=== PATIENT | female | born 1960 | race Caucasian/White ===

== ENCOUNTER 2021-09-03 11:41 | Outpatient (REF) | payer BC, SELFPAY ==
[2021-09-03 12:29] LABS: Influenza A PCR NEGATIVE (Negative); Influenza B PCR NEGATIVE (Negative); Resp Syncy Virus RNA Qual PCR NEGATIVE (Negative); SARS COV2 PCR INHOUSE NEGATIVE (Negative)
== END 2021-09-03 11:42 | disposition home or self-care (01) ==
LOC: HO.LNP 11:41
PROVIDERS: Visit Provider Internal Medicine
DX: Z20.822 Contact with and (suspected) exposure to COVID-19 (principal); R43.9 Unspecified disturbances of smell and taste
CPT/HCPCS: 0241U

== ENCOUNTER 2021-09-06 13:58 | Outpatient (REF) | payer BC, SELFPAY ==
[2021-09-06 15:22] LABS: Influenza A PCR NEGATIVE (Negative); Influenza B PCR NEGATIVE (Negative); Resp Syncy Virus RNA Qual PCR NEGATIVE (Negative); SARS COV2 PCR INHOUSE POSITIVE (Negative)
== END 2021-09-06 13:59 | disposition home or self-care (01) ==
LOC: HO.LNP 13:58
PROVIDERS: Visit Provider Physician Assistant
DX: J06.9 Acute upper respiratory infection, unspecified (principal); Z20.822 Contact with and (suspected) exposure to COVID-19
CPT/HCPCS: 0241U

== ENCOUNTER 2023-11-13 09:47 | Outpatient (AMB) | payer BC, SELFPAY ==
--- NOTE | 2023-11-13 11:06 | MHC.OFFWIV ---
Intake Vital Signs 11/13/23 11:57 Height 4 ft 11 in Weight 147 lb BMI 29.7 BP 112/66 Blood Pressure Location Lt brachial Position Sitting Pulse 77 Pulse Source Pulse Oximeter Temp 97.8 F Temp Source Temporal Artery Scan Pulse Oximetry (%) 97 Oxygen Delivery Method Room Air Intake Visit Reasons: EP Eyes Itchy, pain Intake Note: pt is here today for itchy eyes and pain started yesterday Allergies Penicillins Allergy (Intermediate, Verified 11/13/23 11:59) Rash Do you need a note to return to daycare/school/sports/work: No HPI HPI Comments History of Present Illness Details presents to the walkin today for irritation to the left eye since yesterday Patient endorses itching to the left eye and Crestor mg work up this morning Denies pain to the eye, denies vision changes, headache. Patient denies pain with eye movement. Denies fever, cough, sinus congestion, sore throat or ear ache. Denies trauma to the eye or foreign body sensation. Review of Systems Const All systems reviewed & are unremarkable except as noted in HPI and below Physical Exam Vital Signs: Last Vital Signs Temp 97.8 F 11/13/23 11:57 Pulse 77 11/13/23 11:57 BP 112/66 11/13/23 11:57 Pulse Ox 97 11/13/23 11:57 Oxygen Delivery Method Room Air 11/13/23 11:57 BMI result Body Mass Index 29.7 General: awake, alert, oriented. Answers questions appropriately. Fully engaged in examination. Skin: warm, dry, intact HEENT: Normocephalic. Hearing intact. left eye: + mucoid discharge, conjunctival injection Cardiac: External chest normal in appearance. Respiratory: No cough, audible wheezing or stridor. Abdomen: without gross distension. MS: No obvious swelling or deformities. Neurological: Oriented to person, place, time and situation. Thought process intact. Psychiatric: Appropriate mood and affect. Good judgment and insight. Assessment & Plan Assessment & Plan (1) Conjunctivitis: Code(s): H10.9 - Unspecified conjunctivitis Plan Patient presents to the walkin for left eye irritation +mucoid discharge and conjunctival injection noted to left eye consistent with conjunctivitis. ABX drops, 1 drop to left eye four times daily. Avoid touching, rubbing the eyes. Do not use same area of facecloth to clean both eyes. Wash hands often. All questions and concerns were answered during the visit. Patient agrees with the plan. Follow up with pcp or return to walkin for any new or worsening symptoms. Medications: New polymyxin B sulf-trimethoprim 10,000 unit- 1 mg/mL while awake; do not exceed 6 doses in 24 hours 1 drp ophthalmic (eye) QID 7 days 10 mL 0RF Coding Level of Care Code Est Pt Level 3 (34308) Diagnoses Conjunctivitis H10.9
[2023-11-13 11:57] VITALS: BP 112/66; PULSE 77; TEMP 36.6; O2SAT 97; BMI 29.7
== END 2023-11-13 12:20 | disposition home or self-care (01) ==
PROVIDERS: Visit Provider Registered Nurse Emergency
DX: H10.9 Unspecified conjunctivitis (principal)
CPT/HCPCS: 99213

== ENCOUNTER 2025-02-12 10:26 | Outpatient (AMB) | payer BC, SELFPAY ==
--- NOTE | 2025-02-12 10:29 | A.OFFVIS_ITS ---
Vital Signs 02/12/25 10:31 Height 4 ft 11 in Weight 145 lb BMI 29.3 BP 119/61 Blood Pressure Location Rt brachial Position Sitting Respiration 16 Pulse 72 Pulse Source Pulse Oximeter Pulse Oximetry (%) 98 Oxygen Delivery Method Room Air Intake Visit Reasons: Fibromyalgia Education Dean Required: No Allergies Penicillins Allergy (Intermediate, Verified 02/12/25 10:32) Rash Medication List - Last Reconciled 02/12/25 by Madhavi Veliz LPN aspirin 81 mg PO DAILY atorvastatin 20 mg PO DAILY bupropion HCl XL 150 mg PO QAM buspirone 10 mg PO BID cyclobenzaprine 5 mg PO TID PRN diltiazem HCl CD 180 mg PO DAILY hydroxyzine HCl 25 mg PO TID isosorbide mononitrate ER 30 mg PO DAILY lisinopril 10 mg PO DAILY losartan 50 mg PO DAILY omeprazole 40 mg PO DAILY omeprazole 20 mg PO BID rosuvastatin 40 mg PO DAILY sertraline mg PO trazodone 100 mg PO BEDTIME valacyclovir 500 mg PO BID HPI Comments Details: The patient is a 64-year-old female presenting to the office for evaluation management of her chronic diffuse muscle and joint pain. Her debilitating pain, persisting for eight months, affects her entire body including the lower back, hips, shoulders, elbows, wrists, knees, ankles, and neck. She was told by PCP this is being caused by a flare of her fibromyalgia. Despite using Tylenol and ibuprofen, the patient reports no significant relief. PCP recently prescribed cyclobenzaprine the patient has not started this medication because it causes drowsiness. She states that she already suffers with some fatigue and can not afford to be more tired than she already is. Additionally, she relates this to stress from caregiving duties and subsequent business pressures. 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 Her medical history includes fibromyalgia, depression, and anxiety. The patient non-recalled past use of gabapentin and is currently on sertraline with improvements in depression symptoms. 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 She has not been evaluated by rheumatology. Her PCP did run Lyme test which was negative. - Onset: 8 months ago without inciting injury, fall, trauma - Timing: Constant pain present daily - Quality/Character: Severe, debilitating - Primary Location: Lower back, hips, shoulders, elbows, wrists, knees, ankles, neck - Exacerbating Factors: Physical activity, stress - Relieving Factors: None identified, OTC medications ineffective - Functional Interference: Inability to engage in daily activities such as gardening, homestaging business, and caregiving - Affect: Reports being in tears due to pain severity, impacting mood and psychological wellbeing - Analgesia: Currently taking Tylenol and ibuprofen with minimal relief; gabapentin previously used with effects unrecalled; willing to trial low-dose gabapentin again - Adverse Effects: Tiredness from cyclobenzaprine preventing daytime use - Activities of Daily Living: Pain severely limits activities like putting on socks and inhibits interests like cycling, kayaking, and gardening - Aberrant Drug Related Behaviors: No evidence of misuse or overuse reported Review of Systems Const Details: - Musculoskeletal: Reports debilitating diffuse pain - Neurological: Denies any specific neurological deficits - Psychological: Reports depression and anxiety; managed with sertraline, significant stress history - General: Reports tiredness and exhaustion Physical Exam Vital Signs: Last Vital Signs Pulse 72 02/12/25 10:31 Resp 16 02/12/25 10:31 BP 119/61 02/12/25 10:31 Pulse Ox 98 02/12/25 10:31 Oxygen Delivery Method Room Air 02/12/25 10:31 BMI result Body Mass Index 29.3 General: awake, alert, oriented. Answers questions appropriately. Fully engaged in examination. Skin: warm, dry, intact HEENT: Normocephalic. Hearing intact. Cardiac: External chest normal in appearance. Respiratory: No cough, audible wheezing or stridor. Abdomen: without gross distension. MS: No obvious swelling or deformities. Able to rise from sit to stand unassisted Ambulates with a steady gait. Neurological: Oriented to person, place, time and situation. Thought process intact. Psychiatric: Appropriate mood and affect. Good judgment and insight. Assessment & Plan Assessment & Plan (1) Polyarthralgia: Code(s): M25.50 - Pain in unspecified joint Category: Medical (2) Polymyalgia: Code(s): M35.3 - Polymyalgia rheumatica Category: Medical Plan The patient will commence a low-dose gabapentin regimen titrated for pain management while engaging in physical therapy to enhance mobility. Coordination with rheumatology will provide additional testing to assess for autoimmune etiologies. Pain progress and psychiatric support are essential components of care, leveraging mental health services and engagement in stress-reduction measures. I thoroughly discussed with the patient the potential benefits of a low-dose gabapentin regimen for pain management, emphasizing titration to minimize adverse effects. We explored the potential need for rheumatological evaluation to rule out alternative autoimmune causes, informed by inflammatory markers and autoimmune screening. The patient was educated on potential side effects and the importance of gradual increment if tolerated. I also advised on the merits of physical therapy to improve her functional status and mitigate pain. We discussed a holistic approach, integrating stress management with mental health support. Her consent was obtained for proceeding with the outlined plan, with reassurance of close monitoring and easy access for emergent concerns or unanticipated drug responses. Patient was informed and verbally consented to the use of an ambient scribe for clinic note documentation during this visit. Orders: Referrals Rheumatology Referral M25.50 - Pain in unspecified joint, M35.3 - Polymyalgia rheumatica Medications: New gabapentin 100 mg PO TID 90 caps 1RF Patient Instructions: - Start taking gabapentin as prescribed, beginning with low doses - Engage in physical therapy as scheduled to enhance movement and reduce pain - Monitor for any side effects from medications and report them - Consider stress-reduction techniques and support mental health - Follow up in four weeks or sooner if issues arise - Ensure access to the patient portal for efficient communication Coding Level of Care Code New Pt Level 4 (90970) Complex EM visit Add On G2211 Diagnoses Polyarthralgia M25.50 Polymyalgia M35.3
[2025-02-12 10:31] VITALS: BP 119/61; PULSE 72; RESP 16; O2SAT 98; BMI 29.3
--- OUTSIDE RECORDS SUMMARY | 2025-02-12 11:55 | XMS_ITS | Encounter Summary ---
Author Organization [facility] Address [address] [place] [address] Care Team Providers Care Mainspring Former Ar[employer] Name Role Phone Unknown Primary Care Provider [phone] Encounter Details Date Type Department Care Team (Late st Contact Info) Description 04/14/2020 Lab Requisition [address] [phone] Laurent Coffey PA-C [address] [place] [id number] Encounter for laboratory testing for COVID-19 virus Social History Tobacco Use Types Packs/Day Years Used Date Smoking Tobacco: Never Assessed Comments Unknown Sex and Gender Information Value Date Recorded Sex Assigned at Not on file Legal Sex Female 12:39 PM EDT Gender Identity Not on file Sexual Orientation Not on file documented as of this encounter Plan of Treatment Not on file documented as of this encounter Procedures Procedure Name Priority Date/Time Associated Diagnosis Comments (REPORT) SARS COV-2 RNA (COVID-19), QUAL Routine 04/14/2020 6:55 AM EDT Encounter for laboratory testing for COVID-19 virus [ICD-10-CM] documented in this encounter Results * SARS CoV-2 RNA (COVID-19), Qual (04/14/2020 6:55 AM EDT) SARS CoV 2 RNA, Qual NOT DETECTED NOT DETECTED 04/16/2020 12:00 AM EDT [facility] Comment: A Not Detected (negative) test result for this test means that SARS- CoV-2 RNA was not present in the specimen above the limit of detection. A negative result does not rule out the possibility of COVID-19 and should not be used as the sole basis for treatment or patient management decisions. ??If COVID-19 is still suspected, based on exposure history together with other clinical findings, re-testing should be considered in consultation with public health authorities. Laboratory test results should always be considered in the context of clinical observations and epidemiological data in making a final diagnosis and patient management decisions. Please review the Fact Sheets and FDA authorized labeling available for health care providers and patients using the following websites: https://www.OnePIN.Swank/home/Covid-19/HCP/NAAT/fact-sheet2 https://www.OnePIN.Swank/home/Covid-19/Patients/NAAT/ fact-sheet2 This test has been authorized by the FDA under an Emergency Use Authorization (EUA) for use by authorized laboratories. Due to the current public health emergency, [facility] is receiving a high volume of samples from a wide variety of swabs and media for COVID-19 testing. In order to serve patients during this public health crisis, samples from appropriate clinical sources are being tested. Negative test results derived from specimens received in non-commercially manufactured viral collection and transport media, or in media and sample collection kits not yet authorized by FDA for COVID-19 testing should be cautiously evaluated and the patient potentially subjected to extra precautions such as additional clinical monitoring, including collection of an additional specimen. Methodology: ??Nucleic Acid Amplification Test (NAAT) includes PCR or TMA ?? Additional information about COVID-19 can be found at the [facility] website: www.UTILICASE.Swank/Covid19. Microbiology Nasopharyngeal swab / Unknown 04/14/2020 6:55 AM EDT 04/14/2020 6:55 AM EDT [facility] - 04/16/2020 12:00 AM EDT Performing Organization Information: ?Site ID: [id number] ?Name: [employer] ?Address: [address] [place] [address],[place] [address] ?Director: BETTIE MYLES MD [facility] License number [id number] Laurent Coffey PA-C BODY FLUIDS AND STOOLS OR DERABLES Final Result Performing Organization Address City/State/[facility] Co de Phone Number [facility] documented in this encounter Visit Diagnoses Diagnosis Encounter for laboratory testing for COVID-19 virus documented in this encounter Care Teams [employer] Relationship Specialty Start Date End Date Unknown Unknow Provider Address PCP - General 02/05/20 documented as of this encounter
--- OUTSIDE RECORDS SUMMARY | 2025-02-12 11:55 | XMS_ITS | Encounter Summary ---
Author Organization [facility] Address [address] [place] [address] Care Team Providers Care Sap Basis Architect Name Role Phone Unknown Primary Care Provider [phone] Encounter Details Date Type Department Care Team (Late st Contact Info) Description 08/28/2020 Lab Requisition [address] [phone] Laurent Coffey PA-C [address] [place] [id number] Encounter for laboratory testing for COVID-19 virus [...] (REPORT) SARS COV-2 RNA (COVID-19), QUAL Routine 08/28/2020 2:04 PM EST Encounter for laboratory testing for COVID-19 virus [ICD-10-CM] documented in this encounter Results * SARS CoV-2 RNA (COVID-19), Qual (08/28/2020 2:04 PM EST) SARS CoV 2 RNA, Qual NOT DETECTED NOT DETECTED 2020 10:00 PM EST [facility] Comment: A Not Detected (negative) [...] providers and patients using the following websites: https://www.Skritter.Spriggle Kids/home/Covid-19/HCP/NAAT/fact-sheet2 https://www.Skritter.Spriggle Kids/home/Covid-19/Patients/NAAT/ fact-sheet2 This test has been authorized by the FDA under an Emergency Use Authorization (EUA) for use by authorized laboratories. Due to the current public health emergency, [facility] is receiving a high volume of samples [...] Methodology: ??Nucleic Acid Amplification Test (NAAT) includes RT-PCR or TMA ?? Additional information about COVID-19 can be found at the [facility] website: www.JuicyCanvas.Spriggle Kids/Covid19. Microbiology Nasopharyngeal swab / Unknown 08/28/2020 2:04 PM EST 08/28/2020 2:04 PM EST [facility] - 2020 10:00 PM EST Performing Organization Information: ?Site ID: [id number] ?Name: [employer] ?Address: [address] [place] [address],[place] [address] ?Director: BETTIE MYLES MD [facility] License number [id number] Laurent Coffey PA-C BODY FLUIDS AND STOOLS OR DERABLES Final Result Performing Organization Address City/State/[facility] Co de Phone Number [facility] documented in this encounter Visit Diagnoses Diagnosis Encounter for laboratory testing for COVID-19 virus documented in this encounter Care Teams Sap Basis Architect Relationship Specialty Start Date End Date Unknown Unknow Provider Address PCP - General 02/05/20 documented as of this encounter
--- OUTSIDE RECORDS SUMMARY | 2025-02-12 11:55 | XMS_ITS ---
Author Name [facility] Organization Unknown Encounters Encounter Type Encounter Reason Primary Diagnosis Location Date Ambulatory [facility] 01/10/2025 Ambulatory [facility] 12/31/2024 Ambulatory [facility] 12/31/2024 Ambulatory [facility] 12/31/2024 Ambulatory [facility] 12/31/2024 Ambulatory [facility] 12/31/2024 Ambulatory [facility] 11/28/2024 Care Team Organization Name Specialty Phone Email Start Date End [facility] te [facility] 01/03/2025 [facility] 08/09/2024 [facility] 02/25/2023 [facility]
--- OUTSIDE RECORDS SUMMARY | 2025-02-12 11:55 | XMS_ITS | Clinical Summary ---
Author Organization [facility] Address [address] [place] [address] Care Team Providers Care Fire Sprinkler Fitter Name Role Phone Unknown Primary Care Provider [phone] Social History Tobacco Use Types Packs/Day Years Used Date Smoking Tobacco: Never Assessed Comments Unknown Sex and Gender Information Value Date Recorded Sex Assigned at Not on file Legal Sex Female 12:39 PM EDT Gender Identity Not on file Sexual Orientation Not on file Plan of Treatment Health Maintenance Due Date Last Done Comments Hepatitis C Virus Screening 1961 HIV Screening 1974 DTaP/Tdap/Td Vaccines (1 - Tdap) 1980 Pneumococcal Vaccines 50+ (1 of 1 - PCV) 2011 Zoster (Shingles) Vaccine (1 of 2) 2011 COVID-19 Vaccine (2 - 2023-2 5 season) 2024 12/25/2020 RSV Vaccine 60 years and old er and Patients (1 - 1-dose 75+ series) 2036 Hepatitis B Vaccines Aged Out No long er eligible based on patient's age to complete this topic Care Teams Fire Sprinkler Fitter Relationship Specialty Start Date End Date Unknown Unknow Provider Address PCP - General 02/05/20
--- OUTSIDE RECORDS SUMMARY | 2025-02-12 11:55 | XMS_ITS | Data Portability ---
Author Organization [facility] Address [address] [address] [place] [address] Care Team Providers Care English Tutor Name Role Phone THOMAS HERNANDEZ Primary Care Provider YOUSUF FERNANDEZ Referring Provider Assessment Encounter Date Assessment Date Assessment LastModified by Organization Details LastModified Time 12/27/2018 12/27/2018 Jodi Palafox is a 58 year old woman with complaints of low back pain which radiates into her right lower extremity for the past eight months. She had physical therapy and chiropractic therapy and is doing a home exercise program with persistent pain. On exam, she has pain on flexion and a positive straight leg raising test on the right. Decreased pre patellar reflex on the right. FAIR Test is positive on the right. I recommend a repeat right piriformis muscle trigger point injection under fluoroscopic guidance. The risks and benefits of the procedure were discussed in detail. She wishes to proceed. An appointment has been booked for the same. She needs a sprinkler driver on the day of the procedure. [email or web address] Not available 01/05/2019 09:55:21 01/08/2019 01/08/2019 Jodi Palafox is a 58 year old woman with complaints of low back pain which radiates into her right lower extremity for the past eight months. She had physical therapy and chiropractic therapy and is doing a home exercise program with persistent pain. On exam, she has pain on flexion and a positive straight leg raising test on the right. Decreased pre patellar reflex on the right. FAIR Test is positive on the right. She is here for a right piriformis muscle trigger point injection under fluoroscopic guidance. The risks and benefits of the procedure were discussed in detail. She wishes to proceed. She needs to follow up in four weeks. [email or web address] Not available 01/09/2019 11:46:14 04/03/2019 04/03/2019 Jodi Palafox is a 58 year old woman with complaints of Right sided low back pain . She had physical therapy and chiropractic therapy and is doing a home exercise program with persistent pain. On exam, she has pain on flexion and a positive facet loading test on the right. I recommend a right lumbar facet joint injection under fluoroscopic guidance. The risks and benefits of the procedure were discussed in detail. She wishes to proceed. An appointment has been booked for the same. She needs a sprinkler driver on the day of the procedure. I have given her a prescription for ativan to be taken pre procedure. FISHER SEAL online checked. [email or web address] Not available 04/09/2019 08:57:51 04/23/2019 04/23/2019 Jodi Palafox is a 58 year old woman with complaints of Right sided low back pain . She had physical therapy and chiropractic therapy and is doing a home exercise program with persistent pain. On exam, she has pain on flexion and a positive facet loading test on the right. She is here for a right lumbar facet joint injection under fluoroscopic guidance. The risks and benefits of the procedure were discussed in detail. She wishes to proceed. She will follow up in four weeks. [email or web address] Not available 04/23/2019 09:45:00 05/30/2019 05/30/2019 Jodi Palafox is a 58 year old woman with complaints of Right sided low back pain . She had physical therapy and chiropractic therapy and is doing a home exercise program with persistent pain. On exam, she has pain on flexion and a positive facet loading test on the right. She is here for a follow up after a right lumbar facet joint injection under fluoroscopic guidance. She reports no pain benefit. I recommend a trial of celebrex 200 mg once daily . She will follow up in 4-6 weeks. She is also going to [facility] for 4 weeks. [email or web address] Not available 05/31/2019 08:43:53 Plan of Treatment Reminders Order Date Submit Date Provider Last Modified By Organization Details Last Modified Time Details Appointments None recorded. Lab None recorded. Referral None recorded. Procedures None recorded. Surgeries None recorded. Imaging None recorded. Medication Orders Celebrex 200 mg capsule 2018 019 INTERFACE [id number], [address] [place], [address], 08:44:55 Patient TargetsNo targets recorded. Patient Instructions Encounter Date Encounter Id Patient Instructions Last Modified By Organization Details Last Modified Time 12/27/2018 [id number] She was advised against bed rest lasting longer than four days and to continue activities as tolerated. [email or web address] Not available 01/05/2019 09:54:14 01/08/2019 [id number] She was advised against bed rest lasting longer than four days and to continue activities as tolerated. [email or web address] Not available 01/09/2019 11:46:15 04/03/2019 [id number] She was advised against bed rest lasting longer than four days and to continue activities as tolerated. [email or web address] Not available 04/09/2019 08:53:05 04/23/2019 [id number] She was advised against bed rest lasting longer than four days and to continue activities as tolerated. [email or web address] Not available 04/23/2019 09:44:34 05/30/2019 [id number] She was advised against bed rest lasting longer than four days and to continue activities as tolerated. [email or web address] Not available 05/31/2019 08:42:46 Reason for Referral None Reported. Problems Name Problem SNOMED Code Status Onset Date Resolution Date Notes Provider Name and Address Organization Details Recorded Time Lumbosacral radiculopathy [id number] Shabbir peña MD [address] [facility] , [address], [place], [address], [place] [facility] 13:39:54 Degeneration of lumbar intervertebral disc [id number] Shabbir peña MD [address] [facility] , [address], [place], [address], [place] [facility] 13:40:03 Lumbosacral spondylosis without myelopathy [id number] Shabbir peña MD [address] [facility] , [address], [place], [address], [place] [facility] 01/28/201 9 13:40:21 Spinal stenosis of lumbar region 64289767 Active Jamaal peña MD [address] [facility] , [address], [place], [address], [place] [facility] 9 13:40:32 Problem Notes None recorded. Procedures Surgical History Date Name Laterality Status Provider Name and Address Organization Details Recorded Time 04/23/20 19 Fluoroscopic Guided Lumbar Facet Steroid Injections of levels completed Jamaal Mcgrath MD [address] [facility] , [address], [place], [address], [place] [facility] 04/23/2019 09:43:47 01/09/20 19 Piriformis injection under fluroscopic guidance. completed Jamaal Mcgrath MD [address] [facility] , [address], [place], [address], [place] [facility] 01/09/2019 11:46:55 12/05/19 19 Piriformis injection under fluroscopic guidance. completed Jamaal Mcgrath MD [address] [facility] [facility] , [address], [place], [address], [place] [facility] 12/04/2018 13:49:28 Other completed Stephanie Garrido [place] [facility] 10/16/2018 15:38:48 Other completed Stephanie Garrido [place] [facility] 10/16/2018 15:39:16 Arthroscopic Surgery completed Stephanie Garrido [place] [facility] 04/03/2019 15:19:30 Imaging Results None recorded. Procedure Notes None recorded. Medical Equipment None Reported. Allergies Allergen ID Allergen Name Allergen Category Reaction Reaction Severity Criticality Documentation Date Start Date Code Code System Note Provider Name and Address Organization Details Recorded Time 19261 Product containin g penicilli n (product) medicatio n rash Not available Not available 10/16/2018 71264 8001 SNOMED Stephanie pierre [place] [facility] 9 15:19:41 84104 shellfish derived food,medi cation anaphylax is Not available Not available 10/16/2018 65094 UNK Stephanie pierre [place] [facility] 9 15:19:51 22284 honey bee venom medicatio n anaphylax is Not available Not available 10/16/2018 78293 7 RxNorm Stephanie pierre [place] [facility] 9 15:20:36 25093 latex environme nt,medica tion Not available Not available Not available 04/03/2019 82609 91 RxNorm [facility] 9 15:15:24 Medications Name Sig Start Date Stop Date Status Note LastModified by Organization Details LastModified Time celecoxib 200 mg capsule TAKE 1 CAPSULE BY MOUTH EVERY DAY active Not Available Not Available No t Available amoxicillin 500 mg capsule TAKE 4 CAPSULES BY MOUTH 1 HR PRIOR TO PROCEDURE 10/16 completed Not Available Not Available Not Available [place] Thyroid 60 mg tablet active Not Available Not Available No t Available atorvastati n 20 mg tablet TAKE 1 TABLET BY MOUTH EVERY DAY 05/30 completed Not Available Not Available Not Available atorvastati n 10 mg tablet TAKE 1 TABLET BY MOUTH EVERY DAY 10/16 completed Not Available Not Available Not Available nitroglycer in 0.3 mg sublingual tablet TAKE 1 TABLET SUBLINGUA LLY EVERY 5 MINUTES NEEDED FOR CHEST PAIN 12/27 completed Not Available Not Available Not Available nitroglycer in 0.2 mg/hr transdermal 24 hour patch APPLY 1 PATCH TO SKIN DIRECTED EVERY DAY. REMOVE AT NIGHT FOR 10-12 HOURS 12/27 completed Not Available Not Available Not Available phentermine 15 mg capsule TAKE ONE CAPSULE BY MOUTH EVERY DAY 10/16 completed Not Available Not Available Not Available omeprazole 40 mg capsule,del ayed release Take 1 capsule every day by oral route. active Not Available Not Available No t Available phentermine 30 mg capsule TAKE 1 CAPSULE BY MOUTH EVERY DAY 10/16 completed Not Available Not Available Not Available isosorbide dinitrate 30 mg tablet TAKE 0.5 TABLET BY ORAL ROUTE EVERY DAY 10/16 completed Not Available Not Available Not Available hydromorpho ne 2 mg tablet 04/03 completed Not Available Not Available Not Available diltiazem ER 120 mg capsule,24 hr,extended release TAKE 1 CAPSULE BY MOUTH EVERY DAY active Not Available Not Available No t Available diltiazem CD 120 mg capsule,ext ended release 24 hr TAKE 1 CAPSULE BY MOUTH EVERY DAY 10/16 completed Not Available Not Available Not Available Longs Adult Low Strength ASA 81 mg tablet,francia yed release Take 1 tablet every day by oral route. active Not Available Not Available No t Available metoprolol succinate ER 25 mg tablet,exte nded release 24 hr TAKE 1+1/2 TABLETS BY MOUTH EVERY DAY 11/15 completed Not Available Not Available Not Available lorazepam 1 mg tablet 05/30 completed Not Available Not Available Not Available naproxen 500 mg tablet TAKE 1 TABLET BY MOUTH TWICE A DAY FOR 7 DAYS WITH FOOD DO NOT TAKE WITH OTHER ANTI INFLAMMAT ORIES 10/16 completed Not Available Not Available Not Available Vitamin D3 25 mcg (1,000 unit) capsule Take by oral route. active Not Available Not Available No t Available bupropion HCl XL 150 mg 24 hr tablet, extended release TAKE 1 TABLET BY MOUTH EVERY DAY active Not Available Not Available No t Available Fish Oil active Not Available Not Avai lable Not Available EpiPen 2-Brooks 0.3 mg/0.3 mL injection, auto-inject or DIRECTED active Not Available Not Available No t Available Jublia 10 % topical solution with applicator APPLY ONCE DAILY TO NAILS 10/16 completed Not Available Not Available Not Available Vitals Date Recorded Body height Heart rate Oxygen saturation Oxygen saturation in Arterial blood by Pulse oximetry Systolic blood pressure Diastolic blood pressure Provider Name and Address Organization Details Last Updated DateTime 9 149.86 cm 71 /min 98 % 98 % 177 mm[Hg] 72 mm[Hg] Stephanie Garrido [facility] 14:43:35 Date Recorded Body height Body mass index (BMI) Body weight Heart rate Oxygen saturation Oxygen saturation in Arterial blood by Pulse oximetry Systolic blood pressure Diastolic blood pressure Provider Name and Address Organization Details Last Updated DateTime 9 149.86 cm 28.1 kg/m2 04522.3 4 g 78 /min 98 % 98 % 128 mm[Hg] 71 mm[Hg] Jamaal peña MD [address] [facility] [facility] , [address], [place], [address], [facility] 9 11:33:56 Date Recorded Body height Heart rate Oxygen saturation Oxygen saturation in Arterial blood by Pulse oximetry Systolic blood pressure Diastolic blood pressure Provider Name and Address Organization Details Last Updated DateTime 9 149.86 cm 69 /min 97 % 97 % 159 mm[Hg] 80 mm[Hg] Stephanie Garrido [place] [facility] 9 15:11:18 Date Recorded Body height Oxygen saturation Oxygen saturation in Arterial blood by Pulse oximetry Heart rate Systolic blood pressure Diastolic blood pressure Provider Name and Address Organization Details Last Updated DateTime 9 149.86 cm 99 % 99 % 77 /min 148 mm[Hg] 78 mm[Hg] Stephanie Garrido [place] [facility] 9 08:48:12 Date Recorded Body height Heart rate Oxygen saturation Oxygen saturation in Arterial blood by Pulse oximetry Systolic blood pressure Diastolic blood pressure Provider Name and Address Organization Details Last Updated DateTime 9 149.86 cm 78 /min 98 % 98 % 156 mm[Hg] 67 mm[Hg] Stephanie Garrido [place] [facility] 9 15:39:34 Social History Question Answer Notes LastModified by Neterion Details LastModified Time Tobacco Smoking Status Former Smoker Quit x 14 years Not Available [email or web address] 07/10/2020 03:16:10 Which Illicit Or Recreational Drugs Have You Used? No [id number] Information not available 07/10/2020 Education 4 Year College BS X 2 Information not available 10/16/2018 Live Alone Or With Others? With Others Partner [email or web address] Information not available 10/16/2018 Marital Status Single Informatio n not available 10/16/2018 What Was The Date Of Your Most Recent Tobacco Screening? 04/03/2019 [id number] Information not available 07/10/2020 How Many Years Have You Smoked Tobacco? 30 [id number] Information not available 07/10/2020 Sex: Unknown Functional Status Question Answer Note LastModified by Neterion Details LastModified Time What is your level of alcohol consumption? 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 Family History Relationship Description Onset Age of this Age Resolved Age Notes LastModified by Organization Details LastModified Time Father Heart disease Not available 2018 15:29:37 Mother Heart disease Not available 2018 15:29:37 Medical History Condition Response Coronary Artery Disease Y Fibromyalgia Y Migrane Y Hypertension Y High Cholesterol Y GERD/Reflux Y Gynecological HistoryNo gynecological history recorded. Obstetrics History GPAL:G 0 P 0 0 0 0 Past Encounters Encounter ID Performer Location Encounter Start Date Encounter Closed Date Diagnosis/Indication Diagnosis SNOMED-CT Code Diagnosis ICD10 Code Diagnosis Note [id number] Jamaal Mcgrath MD PA[facility] [address] [place] [address] 10/16/2018 14:53:03 10/22/2018 14:09:09 Spinal stenosis of lumbar region 43159755 M48.061 Lumbosacra l spondylosis without myelopathy 78430545 M47.817 Degenerati on of lumbar intervertebral disc 64896815 M51.36 Lumbosacra l radiculopathy 9577682 M54.17 [id number] Jamaal Mcgrath MD PA[facility] [address] [place] [address] 11/15/2018 15:24:16 11/19/2018 09:02:19 Spinal stenosis of lumbar region 23130615 M48.061 Lumbosacra l spondylosis without myelopathy 50962959 M47.817 Degenerati on of lumbar intervertebral disc 48003127 M51.36 Lumbosacra l radiculopathy 9340937 M54.17 [id number] Jamaal Mcgrath MD PA[facility]ICE [address] [place] [address] 12/04/2018 10:02:38 12/04/2018 13:53:49 Spinal stenosis of lumbar region 80357580 M48.061 Lumbosacra l spondylosis without myelopathy 30965996 M47.817 Degenerati on of lumbar intervertebral disc 73186695 M51.36 Lumbosacra l radiculopathy 0477462 M54.17 [id number] Jamaal Mcgrath MD PA[facility]ICE [address] [place] [address] 12/27/2018 14:02:27 01/05/2019 09:56:06 Spinal stenosis of lumbar region 47805011 M48.061 Lumbosacra l spondylosis without myelopathy 85371678 M47.817 Degenerati on of lumbar intervertebral disc 24419992 M51.36 Lumbosacra l radiculopathy 9705390 M54.17 [id number] Jamaal Mcgrath MD PAIN [facility]ICE [address] [place] [address] 01/08/2019 11:24:32 01/09/2019 12:03:29 Spinal stenosis of lumbar region 16130762 M48.061 Lumbosacra l spondylosis without myelopathy 90681254 M47.817 Degenerati on of lumbar intervertebral disc 95616175 M51.36 Lumbosacra l radiculopathy 1137915 M54.17 [id number] Jamaal Mcgrath MD PAIN OFFICE [address] [place] [address] 04/03/2019 14:55:56 04/09/2019 08:59:13 Lumbosacral spondylosis without myelopathy 49989011 M47.817 Degenerati on of lumbar intervertebral disc 32148216 M51.36 Lumbosacra l radiculopathy 6481912 M54.17 Spinal clary nosis of lumbar region 71822491 M48.061 [id number] Jamaal Mcgrath MD PAIN OFFICE [address] [place] [address] 04/23/2019 08:30:00 04/24/2019 13:45:34 Lumbosacral spondylosis without myelopathy 40419245 M47.817 Degenerati on of lumbar intervertebral disc 09003862 M51.36 Lumbosacra l radiculopathy 5662307 M54.17 Spinal clary nosis of lumbar region 20341600 M48.061 [id number] Jamaal Mcgrath MD PAIN [facility] [address] [place] [address] 05/30/2019 15:31:30 05/31/2019 08:45:39 Lumbosacral spondylosis without myelopathy 12620377 M47.817 Degenerati on of lumbar intervertebral disc 50591855 M51.36 Lumbosacra l radiculopathy 0371365 M54.17 Spinal clary nosis of lumbar region 50375795 M48.061 Health Concerns Section Related Observation LastModified by Organization Detai ls LastModified Time None Recorded Concern Status LastModified by Organization Details LastModified Time None Recorded Advance Directives Directive None Recorded Payers Encounter Date Sequence Insurance Name Policy Number Policy Anthony Covered Member ID Anthony Member ID Guarantor Name 12/27/2018 1 [place] [id number] Jodi Palafox [id number] Jodi Palafox 01/08/2019 1 [place] [id number] Jodi Palafox [id number] Jodi Palafox 04/03/2019 1 [place] [id number] Jodi Palafox [id number] Jodi Palafox 04/23/2019 1 [place] [id number] Jodi Palafox [id number] Jodi Palafox 05/30/2019 1 [place] [id number] Jodi Palafox [id number] Jodi Palafox Notes Date Note Type Note Provider Name and Address Organization Details Recorded Time 12/27/2018 text/html She is here for follow up after a right piriformis muscle steroid injection under fluoroscopic guidance. She is complaining of low back pain radiating into right lower extremity. She is also complaining of neck pain radiating into upper back. She has no radiating pain in her upper extremities. She has no history of bladder or bowel incontinence. Jamaal Mcgrath MD [email or web address] , [address], [place], [address], [place] [facility] 01/06/2019 17:03:41 01/08/2019 text/html She is here for right piriformis muscle steroid injection under fluoroscopic guidance Jamaal Mcgrath MD [email or web address] , [address], [place], [address], [place] [facility] 01/10/2019 10:38:19 04/03/2019 text/html She is here for a follow up. She reports good pain benefit after right piriformis injection under fluoroscopic guidance. She is complaining of right sided low back pain. She has no radiating pain in her lower extremities. She has no history of bladder or bowel incontinence. Jamaal Mcgrath MD [address] [facility] , [address], [place], [address], [facility] 04/11/2019 09:45:26 04/23/2019 text/html She is here for a right lumbar facet joint injection under fluoroscopic guidance Jamaal Mcgrath MD [address] [facility] , [address], [place], [address], [facility] - [facility] 04/24/2019 14:20:26 05/30/2019 text/html She is here for a follow up after right facet joint injections under fluoroscopic guidance. She reports no pain benefit. She continues to have low back pain, right is greater than left. She has no radiating pain. She has no history of bladder or bowel incontinence. She has seen a chiropractor and is seeking treatment with him. Jamaal Mcgrath MD [address] [facility] , [address], [place], [address], [facility] - [facility] 05/31/2019 08:57:38 OBGyn Episode No OBEpisode recorded.
--- OUTSIDE RECORDS SUMMARY | 2025-02-12 11:55 | XMS_ITS | Encounter Summary ---
Author Organization [facility] Address [address] [place] [address] Care Team Providers Care Double End Tenon Operator Name Role Phone Unknown Primary Care Provider +[id number] -0000 Encounter Details Date Type Department Care Team (Late st Contact Info) Description 07/24/2020 Lab Requisition [address] [address] Laurent Coffey PA-C [address] [place] [id number] Encounter for laboratory testing for COVID-19 virus [...] (REPORT) SARS COV-2 RNA (COVID-19), QUAL Routine 07/24/2020 1:14 PM EDT Encounter for laboratory testing for COVID-19 virus [ICD-10-CM] documented in this encounter Results * SARS CoV-2 RNA (COVID-19), Qual (07/24/2020 1:14 PM EDT) SARS CoV 2 RNA, Qual NOT DETECTED NOT DETECTED 07/27/2020 3:00 PM [facility] Comment: A Not Detected (negative) test result [...] providers and patients using the following websites: https://www.[employer]/home/Covid-19/HCP/NAAT/fact-sheet2 https://www.[employer]/home/Covid-19/Patients/NAAT/ fact-sheet2 This test has been authorized by the FDA under an Emergency Use Authorization (EUA) for use by authorized laboratories. Due to the current public health emergency, [facility] is receiving a high volume of samples [...] about COVID-19 can be found at the [facility] website: www.[employer]/Covid19. Microbiology Nasopharyngeal swab / Unknown 07/24/2020 1:14 PM EDT 07/24/2020 1:14 PM EDT [facility] - 07/27/2020 3:00 PM EST Performing Organization Information: ?Site ID: [id number] ?Name: [facility] ?Address: [address] [place] [address],[place] [address] ?Director: BETTIE MYLES MD [facility] License number [id number] Laurent Coffey PA-C BODY FLUIDS AND STOOLS OR DERABLES Final Result Performing Organization Address City/State/[facility] Co de Phone Number [facility] documented in this encounter Visit Diagnoses Diagnosis Encounter for laboratory testing for COVID-19 virus documented in this encounter Care Teams Double End Tenon Operator Relationship Specialty Start Date End Date Unknown Unknow Provider Address PCP - General 02/05/20 documented as of this encounter
--- OUTSIDE RECORDS SUMMARY | 2025-02-12 11:56 | XMS_ITS | Encounter Summary ---
Author Organization [facility] Address [address] [place] [address] Care Team Providers Care J2Ee Software Engineer Name Role Phone Unknown Primary Care Provider [phone] Encounter Details Date Type Department Care Team (Late st Contact Info) Description 06/02/2020 Lab Requisition [address] [phone] Laurent Coffey PA-C [address] [place] [address] Encounter for laboratory testing for COVID-19 virus [...] (REPORT) SARS COV-2 RNA (COVID-19), QUAL Routine 06/02/2020 7:56 AM EDT Encounter for laboratory testing for COVID-19 virus [ICD-10-CM] documented in this encounter Results * SARS CoV-2 RNA (COVID-19), Qual (06/02/2020 7:56 AM EDT) SARS CoV 2 RNA, Qual NOT DETECTED NOT DETECTED 06/03/2020 7:00 PM EDT [facility] Comment: A Not Detected (negative) test result for this test means that SARS-CoV-2 RNA was not present in the specimen above the limit of detection. A negative result does not rule out the possibility of COVID-19 and should not be used as the sole basis for treatment or patient management decisions. If COVID-19 is still suspected, based on exposure history together with other clinical findings, re-testing should be considered in consultation with public health authorities. Laboratory test results should always be considered in the context of clinical observations and epidemiological data in making a final diagnosis and patient management decisions. REFERENCE RANGE: ??NOT DETECTED This patient specimen was tested using an FDA EUA pooling method. Negative results from pooled testing should not be treated as definitive. ??If the patient's clinical signs and symptoms are inconsistent with a negative result or results are necessary for patient management, then the patient should be considered for individual testing. Specimens with low viral loads may not be detected in sample pools due to the decreased sensitivity of pooled testing. Please review the Fact Sheets and FDA authorized labeling available for health care providers and patients using the following websites: https://www.[employer].com/home/Covid-19/HCP/QuestLDTP/ fact-sheet https://www.[employer]/home/Covid-19/Patients/QuestLDTP/ fact-sheet.html This test has been authorized by the FDA under an Emergency Use Authorization (EUA) for use by authorized laboratories. Due to the current public health emergency, [employer] is receiving a high volume of samples [...] about COVID-19 can be found at the [employer] website: www.[employer]/Covid19. Microbiology Nasopharyngeal swab / Unknown 06/02/2020 7:56 AM EDT 06/02/2020 7:56 AM EDT Narrative [facility] - 06/03/2020 7:00 PM EDT Performing Organization Information: ?Site ID: [id number] ?Name: [employer] ?Address: [address] [place] [address],[place] [address] ?Director: BETTIE MYLES MD Performed at [facility] License number [id number] Laurent Coffey PA-C BODY FLUIDS AND STOOLS OR DERABLES Final Result [facility] documented in this encounter Visit Diagnoses Diagnosis Encounter for laboratory testing for COVID-19 virus documented in this encounter Care Teams J2Ee Software Engineer Relationship Specialty Start Date End Date Unknown Unknow Provider Address PCP - General 02/05/20 documented as of this encounter
--- OUTSIDE RECORDS SUMMARY | 2025-02-12 11:56 | XMS_ITS | Encounter Summary ---
Author Organization [facility] Address [address] [place] [address] Care Team Providers Care Motors And Controls Tester Name Role Phone Unknown Primary Care Provider [phone] Encounter Details Date Type Department Care Team (Late st Contact Info) Description 07/31/2020 Lab Requisition [facility] Testing [address] [address] Laurent Coffey PA-C [address] [place] [address] Encounter for laboratory testing for COVID-19 virus [...] (REPORT) SARS COV-2 RNA (COVID-19), QUAL Routine 07/31/2020 1:12 PM EST Encounter for laboratory testing for COVID-19 virus [ICD-10-CM] documented in this encounter Results * SARS CoV-2 RNA (COVID-19), Qual (07/31/2020 1:12 PM EST) SARS CoV 2 RNA, Qual NOT DETECTED NOT DETECTED 08/03/2020 9:00 PM EST [facility] Comment: [...] providers and patients using the following websites: https://www.[employer]ee[employer]/home/Covid-19/HCP/QuestLDT/ fact-sheet.html https://www.[employer]/home/Covid-19/Patients/QuestLDT/ fact-sheet.html ?? This test has been authorized by the FDA under an Emergency Use Authorization (EUA) for use by authorized laboratories. Due to the current public health emergency, [employer] is receiving a high volume of samples [...] about COVID-19 can be found at the [employer] website: www.[employer]/Covid19. Microbiology Nasopharyngeal swab / Unknown 07/31/2020 1:12 PM EST 07/31/2020 1:12 PM EST [facility] - 08/03/2020 9:00 PM EST Performing Organization Information: ?Site ID: [id number] ?Name: [facility] ?Address: [address] [place] [address],[place] [address] ?Director: BETTIE MYLES MD [facility] at [facility] License number [id number] Laurent Coffey PA-C BODY FLUIDS AND STOOLS OR DERABLES Final Result [facility] documented in this encounter Visit Diagnoses Diagnosis Encounter for laboratory testing for COVID-19 virus documented in this encounter Care Teams Motors And Controls Tester Relationship Specialty Start Date End Date Unknown Unknow Provider Address PCP - General 02/05/20 documented as of this encounter
--- OUTSIDE RECORDS SUMMARY | 2025-02-12 11:56 | XMS_ITS | Encounter Summary ---
Author Organization [facility] Address [address] [place] [address] Care Team Providers Care Nursing Unit Manager Name Role Phone Unknown Primary Care Provider [phone] Encounter Details Date Type Department Care Team (Late st Contact Info) Description 06/30/2020 Lab Requisition [address] [address] Laurent Coffey PA-C [address] [place] [address] Encounter for laboratory testing for COVID-19 virus [...] (REPORT) SARS COV-2 RNA (COVID-19), QUAL Routine 06/30/2020 7:01 AM EDT Encounter for laboratory testing for COVID-19 virus [ICD-10-CM] documented in this encounter Results * SARS CoV-2 RNA (COVID-19), Qual (06/30/2020 7:01 AM EDT) SARS CoV 2 RNA, Qual NOT DETECTED NOT DETECTED 07/01/2020 5:00 PM EDT [facility] Comment: A Not Detected (negative) test result [...] providers and patients using the following websites: https://www.[employer]ungle.com/home/Covid-19/HCP/QuestLDTP/ fact-sheet https://www.[employer]/home/Covid-19/Patients/QuestLDTP/ fact-sheet.html This test has been authorized by the FDA under an Emergency Use Authorization (EUA) for use by authorized laboratories. Due to the current public health emergency, [employer] is receiving a high volume of samples [...] about COVID-19 can be found at the [employer] website: www.[employer]/Covid19. Microbiology Nasopharyngeal swab / Unknown 06/30/2020 7:01 AM EDT 06/30/2020 7:01 AM EDT Narrative [facility] - 07/01/2020 5:00 PM EDT Performing Organization Information: ?Site ID: [id number] ?Name: [employer] ?Address: [address] [place] [address],[place] [address] ?Director: BETTIE MYLES MD [facility]formed at [facility] License number [id number] Laurent Coffey PA-C BODY FLUIDS AND STOOLS OR DERABLES Final Result [facility] documented in this encounter Visit Diagnoses Diagnosis Encounter for laboratory testing for COVID-19 virus documented in this encounter Care Teams Nursing Unit Manager Relationship Specialty Start Date End Date Unknown Unknow Provider Address PCP - General 02/05/20 documented as of this encounter
== END 2025-02-12 11:06 | disposition home or self-care (01) ==
LOC: HO.PMC 10:26
PROVIDERS: PCP Nurse Practitioner Family; Referring Provider Nurse Practitioner Family; Visit Provider Registered Nurse Emergency
DX: M25.50 Pain in unspecified joint (principal); M35.3 Polymyalgia rheumatica
CPT/HCPCS: 99204

== ENCOUNTER → 2025-02-12 10:26 | Outpatient (BNVA) | payer BC, SELFPAY | PROVIDERS: PCP Nurse Practitioner Family; Referring Provider Nurse Practitioner Family; Visit Provider Registered Nurse Emergency ==

== ENCOUNTER 2025-09-07 05:04 | Emergency (ER) | payer BC, SELFPAY ==
--- NOTE | ~2025-09-07 | XR_ITS ---
CLINICAL HISTORY: Pain 4 view left knee Comparison: None provided Findings: Bones intact. No dislocations. No significant loss of joint space, osteophytes, or erosions. No joint effusion. No radiopaque foreign body. IMPRESSION: 1. No acute findings. This document has been electronically signed by: Navneet Van MD on 09/07/2025 06:38:36
--- NOTE | ~2025-09-07 | CT_ITS ---
CLINICAL HISTORY: abd pain, hx of colitis and colectomy, r o sbo CT abdomen and pelvis with contrast Comparison: None provided Findings: No consolidation or effusion in the included lung bases. The liver, gallbladder, spleen, pancreas, bilateral adrenal glands and bilateral kidneys without acute abnormality or abnormal enhancement. The stomach and bowel loops are nondistended. There are no focal colonic lesions or pneumatosis. Mild thickening of the wall of the sigmoid colon. No pericolonic inflammation. There is no mesenteric inflammation. Appendix is surgically absent. No free fluid, collections or free air. there no aortic dissection or aneurysm. Bladder is normal. There are no adnexal lesions. There no acute soft tissue or skeletal abnormality in the abdomen or pelvis. There are no skeletal lesions. IMPRESSION: Mild thickening of the wall of the sigmoid colon, likely from underdistention, less likely mild colitis. There is no associated mesenteric inflammation. No signs of bowel obstruction, abscess or perforation. This document has been electronically signed by: Navneet Van MD on 09/07/2025 08:28:54
--- NOTE | ~2025-09-07 | CT_ITS ---
CLINICAL HISTORY: syncope, fall, head injury CT head without contrast Comparison: None provided Findings: No intra-axial mass, midline shift, hydrocephalus, or acute hemorrhage. No significant atrophy-like change or white matter disease. There is no sinus or mastoid fluid. The orbits are unremarkable. No skull fracture. IMPRESSION: 1. No acute intracranial findings. This document has been electronically signed by: Navneet Van MD on 09/07/2025 08:30:29
--- NOTE | 2025-09-07 05:17 | ECG_ITS ---
Test Reason : SYNCOPE Blood Pressure : */* mmHG Vent. Rate : 55 BPM Atrial Rate : 55 BPM P-R Int : 186 ms QRS Dur : 78 ms QT Int : 482 ms P-R-T Axes : 54 64 149 degrees QTcB Int : 461 ms Sinus bradycardia Septal infarct , age undetermined Abnormal ECG No previous ECGs available Referred By: Generic ED Physician Electronically Signed By: OLGA HURTADO MD
[2025-09-07 05:20] VITALS: BP 100/73; BP 110/36; PULSE 55; PULSE 57; RESP 16; TEMP 36.4; O2SAT 96; BMI 29.8
--- OUTSIDE RECORDS SUMMARY | 2025-09-07 05:37 | XMS_ITS | Encounter Summary ---
Author Organization [facility] Address [address] [facility] [address] [place] [address] Phone Care Team Providers Care Head Tennis Coach Name Role Phone Chio Hill CNP Primary Care Provider [phone] Veronica Evertet RN Unavailable Candice Martinez ADJUNCT TRAINER Primary Care Provider Candice Martinez CNP Primary Care Provider Candice Martinez ADJUNCT TRAINER Primary Care Provider [phone] Encounter Details Date Type Department Care Team (Late st Contact Info) Description 12/24/2020 Ancillary Orders [facility] [address] [place] [address] Chio Hill, ADJUNCT TRAINER [address] [facility], 2nd [place] [address] [email or web address] Breast screening Social History Tobacco Use Types Packs/Day Years Used Date Smoking Tobacco: Former Cigarettes Q uit: 07/30/2001 Smokeless Tobacco: Never Comments:started age 17 1 PP D Alcohol Use Standard Drinks/Week Comments Not Currently 0 (1 standard drink = 0.6 oz pur e alcohol) sober 18 years Comments No Sex and Gender Information Value Date Recorded Sex Assigned at Female 11/21/2019 7:20 AM EST Legal Sex Female 9:41 AM EDT Gender Identity Female 11/21/2019 7:20 AM EST Sexual Orientation Lesbian or Pittman 11/21/2019 7: 20 AM EST Occupation Industry Job Start Date Job End Date medical records Not on file Not on file Not on file documented as of this encounter Plan of Treatment Not on file documented as of this encounter Results * BI MAMMOGRAM SCREENING WITH TOMOSYNTHESIS WITH CAD (BILATERAL) (02/08/2021 4:05 PM EDT) Anatomical Region Laterality Modality Breast Left, Breast Right, Breast Bilateral Bila teral Mammography 02/08/2021 4:57 PM EDT Impressions 02/08/2021 5:03 PM EDT No mammographic signs of malignancy. Annual screening is recommended. BI-RADS CATEGORY: 1 - Negative. DENSITY: The breast tissue is extremely dense, which lowers the sensitivity of mammography. Narrative 02/08/2021 5:03 PM EDT Bilateral mammography is performed in conjunction with computed aided detection. 3-D tomography along with 2-D C view imaging was also performed. Comparison made to previous dated as far back as 02/16/2016 and as recent as 05/08/2019. No suspicious masses, areas of architectural distortion or suspicious microcalcifications. Procedure Note Dawit Chapa MD - 02/08/2021 Bilateral mammography is performed in conjunction with computed aideddetection. 3-D tomography along with 2-D C view imaging was alsoperformed. Comparison made to previous dated as far back as 02/16/2016 andas recent as 05/08/2019. No suspicious masses, areas of architectural distortion or suspiciousmicrocalcifications. IMPRESSION: No mammographic signs of malignancy. Annual screening is recommended. BI-RADS CATEGORY: 1 - Negative. DENSITY: The breast tissue is extremely dense, which lowers thesensitivity of mammography. Chio Hill ADJUNCT TRAINER IMG MG EXAMS Final Resu lt documented in this encounter Visit Diagnoses Diagnosis Breast screening Breast screening, unspecified Breast screening Breast screening, unspecified documented in this encounter Additional Health Concerns Assessment Noted Time PHQ-2 Depression Total Score: 0 09/24/20 20 8:18 AM EST documented as of this encounter Care Teams Head Tennis Coach Relationship Specialty Start Date End Date Chio HillDICKSON cox [address] [facility], [address]nd [place] [address] PCP - General Family Medicine 08/27/19 07/31/23 Candice Martinez CNP [address] [facility] [address] [place] [address] PCP - General Nurse Practitioner 08/01/23 09/05/23 Candice Martinez CNP [address] [facility] 7 [place] [address] PCP - General Nurse Practitioner 09/06/23 09/06/23 Candice Martinez CNP [address] [place] [address] 7 [place] [address] PCP - General Nurse Practitioner 09/07/23 Veronica Everett, RN [address] [place], [place] [id number] PHCM Spinning Frame CleanerPump Machine Operator 02/23/23 03/21/23 documented as of this encounter Additional Source Comments The information contained in this document represents components of the legal health record. It is not the complete legal health record.[facility]
--- OUTSIDE RECORDS SUMMARY | 2025-09-07 05:37 | XMS_ITS | Encounter Summary ---
Author Organization [facility] Address Critical access hospital [employer] [facility] [address] [place] [address] Phone Care Team Providers Care Hydraulic Chair Assembler Name Role Phone Candice Martinez DICKSON Primary Care Provider Reason for Visit * Reason Comments Medication Refill Encounter Details Date Type Department Care Team (Late st Contact Info) Description 08/29/2025 Refill [facility] Medicine [address] [place] [address] Cesar Petersen PA-C, LASHONDA [address] [place] [address] [email or web address] Medication Refill Social History Tobacco Use Types Packs/Day Years Used Date Smoking Tobacco: Former Cigarettes 1 20 1 09/29/1980 - 07/30/2001 Smokeless Tobacco: Never Comments:started age 17 1 PP D Alcohol Use Standard Drinks/Week Comments Not Currently 0 (1 standard drink = 0.6 oz pur e alcohol) sober 22 years(2000) Education Answer Date Recorded Are you interested in more education? Not on juan e 01/20/2023 Are you concerned about learning? Not on file 01/20/2023 No 01/20/2023 No 01/20/2023 Digital Access Answer Date Recorded No 02/14/2023 No 02/14/2023 Reliable internet access at home? Not on file 02/14/2023 Device with a working camera? Not on file Intimate Partner Violence Answer Date R ecorded Are you denied basic needs s uch as food, clothing, or medical care? No 09/07/2023 In the past 12 months have y ou been in a relationship with a person who hurts, threatens, or tries to control you? No 09/07/2023 Are you denied basic needs s uch as food, clothing, or medical care? No 09/07/2023 In the past 12 months have y ou been in a relationship with a person who hurts, threatens, or tries to control you? No 09/07/2023 Comments No Sex and Gender Information Value [...] on file documented as of this encounter Progress Notes * Laura Sheridan MA - 08/29/2025 12:14 PM EST Rx Care Gap Status - Instructions for Clinical Staff (prescriber discretion applies): > Mismatch review guide > No future appt: Please schedule if appropriate. Visit Info Last visit: 01/09/2025 Candice Martinez CNP - Family Medicine [facility] > Requested f/u: Not specified Upcoming visit: None ACTIONS TAKEN BY Laura Sheridan MA MAC - Criteria met. Skeletal Muscle Relaxant Rx Protocol - cyclobenzaprine HCl Criteria met; renew for up to 12 months. Visit in the past 14 months: Yes documented in this encounter Plan of Treatment Not on file documented as of this encounter Visit Diagnoses Diagnosis Fibromyalgia Unspecified myalgia and myositis documented in this encounter Additional Health Concerns Assessment Noted Time PHQ-9 Depression Total Score: 0 11/14/19 24 1:31 PM EST PHQ-2 Depression Total Score: 0 11/14/19 24 1:31 PM EST documented as of this encounter Care Teams Hydraulic Chair Assembler Relationship Specialty Start Date End Date Dior MartinezDICKSON jerry [address] [place] [address], [address] [place] [address] [email or web address] PCP - General Nurse Practitioner 09/07/23 documented as of this encounter Additional Source Comments The information contained in this document represents components of the legal health record. It is not the complete legal health record.[facility]
--- OUTSIDE RECORDS SUMMARY | 2025-09-07 05:37 | XMS_ITS | Encounter Summary ---
Author Organization [facility] Address [address] [place] [address] Phone Care Team Providers Care Net Mobile Developer Name Role Phone Chio Hill Olga [facility] Primary Care Provider [phone] Veronica Everett RN Unavailable [phone] Candice Martinez [facility] Primary Care Provider Candice Martinez [facility] Primary Care Provider Candice Martinez [facility] Primary Care Provider Encounter Details Date Type Department Care Team (Late st Contact Info) Description 10/13/2021 Procedure Pass [facility] [address] [place] [address] Social History Tobacco Use Types Packs/Day Years [...] EST Sexual Orientation Lesbian or Pittman 11/21/2019 7 :20 AM EST Occupation Industry Job Start Date Job End Date medical records Not on file Not on file Not on file documented as of this encounter Plan of Treatment Not on file documented as of this encounter Visit Diagnoses Not on filedocumented in this encounter Additional Health Concerns Assessment Noted Time PHQ-2 Depression Total Score: 0 10/13/19 22 4:05 PM EST documented as of this encounter Care Teams Net Mobile Developer Relationship Specialty Start Date End Date Chio HillDICKSON [address] [facility], 2nd [place] [address] PCP - General Family Medicine 08/27/19 07/31/23 Candice Martinez CNP [address] [facility] 7 [place] [address] PCP - General Nurse Practitioner 08/01/23 09/05/23 Candice Martinez CNP [address] [facility] 7 [place] [address] PCP - General Nurse Practitioner 09/06/23 09/06/23 Candice Martinez CNP [address] [facility] [address] [place] [address] PCP - General Nurse Practitioner 09/07/23 Veronica Everett, RN [address] [place] [address] PHCM Leather ScraperPhp Architect 02/23/23 03/21/23 documented as of this encounter Additional Source Comments The information contained in this document represents components of the legal health record. It is not the complete legal health record.[facility]
--- OUTSIDE RECORDS SUMMARY | 2025-09-07 05:37 | XMS_ITS | Encounter Summary ---
Author Organization [facility] Address [facility] [employer] [facility] [address] [place] [address] Phone Care Team Providers Care Food Science Professor Name Role Phone Candice Martinez DICKSON Primary Care Provider Encounter Details Date Type Department Care Team (Late st Contact Info) Description 09/26/2023 Procedure Pass [facility], [address] [place] [address] Social History Tobacco Use Types Packs/Day Years [...] Assessment Noted Time PHQ-9 Depression Total Score: 11 023 9:04 AM EST PHQ-2 Depression Total Score: 4 09/22/20 23 9:04 AM EST documented as of this encounter Care Teams Food Science Professor Relationship Specialty Start Date End Date Candice Martinez CNP [address] [place] [address], [address] [place] [address] [email or web address] PCP - General Nurse Practitioner 09/07/23 documented as of this encounter Additional Source Comments The information contained in this document represents components of the legal health record. It is not the complete legal health record.[facility]
--- OUTSIDE RECORDS SUMMARY | 2025-09-07 05:37 | XMS_ITS | Encounter Summary ---
Author Organization [facility] Address [facility] [employer] [facility] [address] [place] [address] Phone Care Team Providers Care First Aid Trainer Name Role Phone Candice Martinez DICKSON Primary Care Provider Encounter Details Date Type Department Care Team (Late st Contact Info) Description 09/07/2023 Procedure Pass [facility] - [address] [place] [address] Social History Tobacco Use Types Packs/Day Years [...] Assessment Noted Time PHQ-9 Depression Total Score: 13 023 9:02 AM EST PHQ-2 Depression Total Score: 4 09/15/20 23 9:02 AM EST documented as of this encounter Care Teams First Aid Trainer Relationship Specialty Start Date End Date Candice Martinez CNP [address] [place] [address], [address] [place] [address] [email or web address] PCP - General Nurse Practitioner 09/07/23 documented as of this encounter Additional Source Comments The information contained in this document represents components of the legal health record. It is not the complete legal health record.[facility]
--- OUTSIDE RECORDS SUMMARY | 2025-09-07 05:37 | XMS_ITS | Encounter Summary ---
Author Organization [facility] Address [address] [place] [address] Phone Care Team Providers Care Biodiesel Process Control Technician Name Role Phone Chio Hill Olga [facility] Primary Care Provider [phone]- [phone] MiamiCandice walsh [facility] Primary Care Provider Juan Candice [facility] Primary Care Provider Candice Martinez [facility] Primary Care Provider Encounter Details Date Type Department Care Team (Latest Contact Info) Description 07/19/2023 Transcribe Orders [facility] Phleb Charlette 10 [facility] 2nd [place] [address] Milagros Zayas NP 10 [place] [address] Dysphagia, pharyngoesophageal phase (Primary Dx); Change in bowel habits; Nausea Social History Tobacco Use Types Packs/Day Years Used Date Smoking Tobacco: Former Cigarettes 1 20 1 09/29/1980 - 07/30/2001 Smokeless Tobacco: Never Comments:started age 17 1 PP D Alcohol Use Standard Drinks/Week Comments Not Currently 0 (1 standard drink = 0.6 oz pur e alcohol) sober 18 years Education Answer Date Recorded Are you interested in more education? Not on juan e 01/20/2023 Are you concerned about learning? Not on file 01/20/2023 No 01/20/2023 No 01/20/2023 Digital Access Answer Date Recorded No 02/14/2023 No 02/14/2023 Reliable internet access at home? Not on file 02/14/2023 Device with a working camera? Not on file Comments No Sex and Gender Information Value [...] documented as of this encounter Results * (ABNORMAL) Iron and iron binding capacity (07/19/2023 10:40 AM EDT) IRON 39 30 - 160 ug/dL [facility] IRON BINDING CAPACITY 391 228 - 428 ug/dL [facility] TRANSFERRIN SATURAT. 10(L) 15 - 50 % [facility] Blood 07/19/2023 10:4 0 AM EDT 07/19/2023 10:50 AM EDT Milagros Zayas NP LAB BLOOD BKR ORDERABLES Final Result Performing Organization Address City/[facility]/ZIP Co de Phone Number [address] [address] * (ABNORMAL) C-Reactive Protein (07/19/2023 10:40 AM EDT) C REACTIVE PROTEIN 4.8(H) 0.0 - 4.0 mg/L [facility] Blood 07/19/2023 10:4 0 AM EDT 07/19/2023 10:50 AM EDT Milagros Zayas NP LAB BLOOD BKR ORDERABLES Final Result Performing Organization Address City/[facility]/ZIP Co de Phone Number [address] [address] * (ABNORMAL) Comprehensive metabolic panel (07/19/2023 10:40 AM EDT) SODIUM 139 133 - 146 mmol/L [facility] POTASSIUM 5.1 3.3 - 5.1 mmol/L [facility] CHLORIDE 102 96 - 108 mmol/L [facility] CO2 27 21 - 35 mmol/L [facility] BUN 16 6 - 19 mg/dL [facility] CREATININE 0.90 0.5 - 1.5 mg/dL [facility] GLUCOSE 109(H) 70 - 99 mg/dL [facility] ALBUMIN 4.8 3.9 - 4.8 g/dL [facility] TOTAL PROTEIN 7.3 6.5 - 8.0 g/dL [facility] CALCIUM 9.9 8.4 - 10.3 mg/dL [facility] ALKALINE PHOSPHATASE 133(H) 39 - 117 U/L [facility] TOTAL BILIRUBIN <0.2 0.0 - 1.2 mg/dL [facility] AST 24 0 - 37 U/L [facility] ALT 25 0 - 40 U/L [facility] GLOBULIN 2.5 1 - 4.8 g/dL [facility] EGFR 73 >59 mL/min/1.7 3m2 [facility] Comment:Estimated glomerular filtration rate calculated using the CKD-EPI refit equation. ANION GAP 15 10 - 20 mmol/L [facility] Blood 07/19/2023 10:4 0 AM EDT 07/19/2023 10:50 AM EDT Milagros Zayas NP LAB BLOOD BKR ORDERABLES Final Result [facility] [address] [place], [place] [id number] * (ABNORMAL) CBC (07/19/2023 10:40 AM EDT) WBC 8.84 4.00 - 11.00 K/uL [facility] RBC 4.40 3.72 - 5.30 M/uL [facility] HGB 12.0 11.4 - 15.9 g/dL [facility] HCT 38.3 34.2 - 46.8 % [facility] PLT 390 140 - 430 K/uL [facility] MCV 87.0 78.0 - 97.0 fL [facility] MCH 27.3 25.0 - 33.0 pg [facility] MCHC 31.3(L) 32.0 - 36.0 g/dL [facility] RDW 14.0 11.0 - 16.0 % [facility] MPV 10.9 8.4 - 12.8 fl [facility] Blood 07/19/2023 10:4 0 AM EDT 07/19/2023 10:50 AM EDT us Milagros Zayas SLUBBER HAND LAB BLOOD BKR ORDERABLES Final Result Performing Organization Address City/State/[facility] Co de Phone Number [facility] [address] [place] [address] documented in this encounter Visit Diagnoses Diagnosis Dysphagia, pharyngoesophageal phase- Primary Change in bowel habits Other symptoms involving digestive system Nausea Nausea alone documented in this encounter Additional Health Concerns Assessment Noted Time PHQ-9 Depression Total Score: 24 023 1:08 PM EDT PHQ-2 Depression Total Score: 6 05/31/20 23 1:08 PM EDT documented as of this encounter Care Teams Biodiesel Process Control Technician Relationship Specialty Start Date End Date Chio Hill CNP 15 [facility], 2nd [place] [address] [email or web address] PCP - General Family Medicine 08/27/19 07/31/23 Candice Martinez CNP 234 [facility], [facility] 7 [place] [address] [email or web address] PCP - General Nurse Practitioner 08/01/23 09/05/23 Candice Martinez CNP 234 [facility], [facility] 7 [place] [address] [email or web address] PCP - General Nurse Practitioner 09/06/23 09/06/23 Candice Martinez CNP [address] [place] [address] [address] [place] [address] [email or web address] PCP - General Nurse Practitioner 09/07/23 documented as of this encounter Additional Source Comments The information contained in this document represents components of the legal health record. It is not the complete legal health record.[facility]
--- OUTSIDE RECORDS SUMMARY | 2025-09-07 05:37 | XMS_ITS ---
Author Name [facility] Organization Unknown Encounters Encounter Type Encounter Reason Primary Diagnosis Location Date Ambulatory [facility] 05/27/2025 Ambulatory [facility] 05/14/2025 Ambulatory [facility] 01/10/2025 Ambulatory [facility] 12/31/2024 Ambulatory [facility] 12/31/2024 Ambulatory [facility] 12/31/2024 Ambulatory [facility] 12/31/2024 Ambulatory [facility] 12/31/2024 Ambulatory [facility] 11/28/2024 Care Team Organization Name Specialty Phone Email Start Date End Da te [facility] 09/06 [facility] 01/03/2025 [facility] the Legal Support Specialist ([facility]) 08/09/2024 [facility] 02/25/2023 [facility]
--- OUTSIDE RECORDS SUMMARY | 2025-09-07 05:37 | XMS_ITS | Encounter Summary ---
Author Organization [facility] Address [address] [place] [address] Phone Care Team Providers Care Hand Candy Molder Name Role Phone Chio Hill Olga [facility] Primary Care Provider [phone]- [phone] Veronica Everett RN Unavailable [phone] Candice Martinez [facility] Primary Care Provider Candice Martinez [facility] Primary Care Provider Candice Martinez [facility] Primary Care Provider Encounter Details Date Type Department Care Team (Late st Contact Info) Description 07/04/2022 Procedure Pass [facility] Endoscopy Admitting Dept Virtual Department [address] [place] [address] Social History Tobacco Use Types Packs/Day Years [...] documented as of this encounter Care Teams Hand Candy Molder Relationship Specialty Start Date End Date SergioChioDICKSON cox 15 [facility], 2nd [place] [address] PCP - General Family Medicine 08/27/19 07/31/23 Candice Martinez CNP [address] [place] [address] PCP - General Nurse Practitioner 08/01/23 09/05/23 Candice Martinez CNP [address] [place] [address] PCP - General Nurse Practitioner 09/06/23 09/06/23 Candice Martinez CNP [address] [place] [address] PCP - General Nurse Practitioner 09/07/23 Veronica Everett, RN [address] [place] [address] PHCM Budget And Policy AnalystBending Roll Hand 02/23/23 03/21/23 documented as of this encounter Additional Source Comments The information contained in this document represents components of the legal health record. It is not the complete legal health record.[facility]
--- OUTSIDE RECORDS SUMMARY | 2025-09-07 05:37 | XMS_ITS | Encounter Summary ---
Author Organization [facility] Address [address] [place] [address] Phone Care Team Providers Care Maintenance Aide Name Role Phone Chio Hill Olga [facility] Primary Care Provider [phone] Veronica Everett RN Unavailable [phone] Candice Martinez [facility] Primary Care Provider [phone] Candice Martinez [facility] Primary Care Provider [phone] Candice Martinez [facility] Primary Care Provider Encounter Details Date Type Department Care Team (Latest Contact Info) Description 11/07/2019 Transcribe Orders [facility] Phleb [place] [address] [place] [address] Jeff Vazquez MD [address] [place] [address] Post hysterectomy menopause syndrome (Primary Dx); Dizziness; Submucous myoma of uterus; Atherosclerosis of [place] coronary artery of [place] heart with stable angina pectoris; Need for hepatitis C screening test Social History Tobacco Use Types Packs/Day Years [...] documented as of this encounter Results * Testosterone, Bioavailable/Total/Free (02/08/2020 8:47 AM EDT) TESTOSTERONE, TOTAL 9.9 8 - 60 ng/dL [facility] MED/PATH [facility]PER[facility] Comment: (NOTE) ADDITIONAL INFORMATION Testing performed by Liquid Chromatography-Tandem Mass Spectrometry (LC-MS/MS). This test was developed and its performance characteristics determined by [facility] in a manner consistent with CLIA requirements. This test has not been cleared or approved by the U.S. Food and Drug Administration. FREE TESTOSTERONE 0.13 0.06 - 0.90 ng/dL [facility] MED/[facility] Comment: (NOTE) ADDITIONAL INFORMATION Testing performed by Equilibrium Dialysis. This test was developed and its performance characteristics determined by [facility] in a manner consistent with CLIA requirements. This test has not been cleared or approved by the U.S. Food and Drug Administration. BIOAVAIL TESTOST 0.6 ng/dL [facility] MED/[facility] Comment: (NOTE) REFERENCE VALUE Reference values have not been established for patients who are greater than 51 years of age. ADDITIONAL INFORMATION Testing performed by Differential Precipitation. This test was developed and its performance characteristics determined by [facility] in a manner consistent with CLIA requirements. This test has not been cleared or approved by the U.S. Food and Drug Administration. Blood 02/08/2020 8:47 AM EDT 02/08/2020 8:52 AM EDT Jeff Vazquez MD LAB BLOOD BKR ORDERABLES Final Result [facility]PATH [address] [place] [address] * Estradiol (02/08/2020 8:47 AM EDT) [facility] ESTRADIOL 51 pg/mL [facility] Comment: FEMALE: Follicular: Less than 12 to 233 pg/ml Midcycle: 41 - 398 pg/ml Luteal: 22 - 341 pg/ml Postmenopausal: less than 5 - 138 pg/ml Blood 02/08/2020 8:47 AM EDT 02/08/2020 8:53 AM EDT Jeff Vazquez MD LAB BLOOD BKR ORDERABLES Final Result [facility] [address] [place] [address] documented in this encounter Visit Diagnoses Diagnosis Post hysterectomy menopause syndrome- Primary Symptomatic states associated with artificial menopause Dizziness Dizziness and giddiness 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 Need for hepatitis C screening test Special screening examination for other specified viral diseases documented in this encounter Additional Health Concerns Assessment Noted Time PHQ-2 Depression Total Score: 0 07/30/20 19 1:34 PM EST documented as of this encounter Care Teams Maintenance Aide Relationship Specialty Start Date End Date Chio Hill CNP 15 [facility], 2nd [place] [address] PCP - General Family Medicine 08/27/19 07/31/23 Candice Martinez CNP [address] [place] [address], [address] [place] [address] [email or web address] PCP - General Nurse Practitioner 08/01/23 09/05/23 Candice Martinez CNP 234 [facility], [facility] 7 [place] [address] [email or web address] PCP - General Nurse Practitioner 09/06/23 09/06/23 Candice Martinez CNP 234 [facility], [facility] 7 [place] [address] [email or web address] PCP - General Nurse Practitioner 09/07/23 Veronica Everett, RN 10 [place] [address] [email or web address] PHCM Home Security Alarm InstallerPaint Department Supervisor 02/23/23 03/21/23 documented as of this encounter Additional Source Comments The information contained in this document represents components of the legal health record. It is not the complete legal health record.[facility]
--- OUTSIDE RECORDS SUMMARY | 2025-09-07 05:37 | XMS_ITS | Encounter Summary ---
Author Organization [facility] Address [address] [place] [address] Phone Care Team Providers Care Residential Aide Name Role Phone [place] Harbor[place] Olga [facility] Primary Care Provider [phone] Veronica Everett RN Unavailable [phone] Candice Martinez [facility] Primary Care Provider Candice Martinez [facility] Primary Care Provider Candice Martinez [facility] Primary Care Provider Encounter Details Date Type Department Care Team (Late st Contact Info) Description 01/01/2021 Procedure Pass [facility] [place] [address] [place] [address] Social History Tobacco Use Types Packs/Day Years [...] documented as of this encounter Care Teams Residential Aide Relationship Specialty Start Date End Date [place] HarborChio gomezDICKSON cox 15 [facility], 2nd [place] [address] PCP - General Family Medicine 08/27/19 07/31/23 Candice Martinez CNP 234 [facility] 7 [place] [address] PCP - General Nurse Practitioner 08/01/23 09/05/23 Candice Martinez CNP 234 [facility] 7 [place] [address] PCP - General Nurse Practitioner 09/06/23 09/06/23 Candice Martinez CNP 234 [facility] 7 [place] [address] PCP - General Nurse Practitioner 09/07/23 Veronica Everett, RN [address] [place] [address] PHCM Lunchroom AttendantClarity Developer 02/23/23 03/21/23 documented as of this encounter Additional Source Comments The information contained in this document represents components of the legal health record. It is not the complete legal health record.[facility]
--- OUTSIDE RECORDS SUMMARY | 2025-09-07 05:37 | XMS_ITS | Encounter Summary ---
Author Organization [facility] Address [facility] [employer] [facility] [address] [place] [address] Phone Care Team Providers Care Acetylene Operator Name Role Phone Candice Martinez DICKSON Primary Care Provider Reason for Visit * Reason Comments Medication Refill Encounter Details Date Type Department Care Team ([facility] Contact Info) Description 07/10/2025 Refill [facility] Pulmonary, Allergy and Critical Care Medicine 10 [place] [address] Laurent Harris MD [address] [place] [address] Medication Refill Social History Tobacco Use Types [...] as of this encounter Progress Notes * April Traylor LPN - 07/10/2025 9:37 AM EDT Rx Care Gap Status - Instructions for Clinical Staff (prescriber discretion applies): > Mismatch review guide > No future appt: Please schedule if appropriate. Visit Info Last visit: 03/18/2025 Laurent Harris MD - Pulmonology [facility] PULM/ALLGY 10 MAIN > Requested f/u: Return in about 8 weeks (around 05/13/2025). Upcoming visit: None ACTIONS TAKEN BY April Traylor LPN - Criteria met. Insomnia (Non-Controlled) Rx Protocol - trazodone HCl Criteria met; renew for up to 12 months. Visit in the past 24 months: Yes documented in this encounter Plan of Treatment Not on file documented as of this encounter Visit Diagnoses Diagnosis Primary insomnia- Primary Persistent disorder of initiating or maintaining sleep documented in this encounter Additional Health Concerns Assessment Noted Time PHQ-9 Depression Total Score: 0 11/14/19 1:31 PM EST PHQ-2 Depression Total Score: 0 02/20/20 24 1:31 PM EST documented as of this encounter Care Teams Acetylene Operator Relationship Specialty Start Date End Date Candice Martinez DICKSON [address] [place] [address], [address] [place] [address] [email or web address] PCP - General Nurse Practitioner 09/07/23 documented as of this encounter Additional Source Comments The information contained in this document represents components of the legal health record. It is not the complete legal health record.[facility]
--- OUTSIDE RECORDS SUMMARY | 2025-09-07 05:37 | XMS_ITS | Encounter Summary ---
Author Organization [facility] Address [address] [place] [address] Phone Care Team Providers Care Bank Compliance Officer Name Role Phone Chio Hill Olga [facility] Primary Care Provider [phone] Veronica Everett RN Unavailable [phone] Candice Martinez [facility] Primary Care Provider Candice Martinez [facility] Primary Care Provider Candice Martinez [facility] Primary Care Provider Encounter Details Date Type Department Care Team (Late st Contact Info) Description 07/04/2022 Procedure Pass [facility] Endoscopy Admitting Dept Virtual Department [address] [place] [address] Social History Tobacco Use Types Packs/Day Years [...] documented as of this encounter Care Teams Bank Compliance Officer Relationship Specialty Start Date End Date SergioChioDICKSON cox 15 [facility], 2nd [place] [address] PCP - General Family Medicine 08/27/19 07/31/23 Candice Martinez CNP [address] [place] [address] PCP - General Nurse Practitioner 08/01/23 09/05/23 Candice Martinez CNP [address] [place] [address] PCP - General Nurse Practitioner 09/06/23 09/06/23 Candice Martinez CNP [address] [place] [address] PCP - General Nurse Practitioner 09/07/23 Veronica Everett, RN [address] [place] [address] PHCM [employer] CaserPhysician Office Nurse 02/23/23 03/21/23 documented as of this encounter Additional Source Comments The information contained in this document represents components of the legal health record. It is not the complete legal health record.[facility]
--- OUTSIDE RECORDS SUMMARY | 2025-09-07 05:37 | XMS_ITS | Encounter Summary ---
Author Organization [facility] Address [address] [place] [address] Phone Care Team Providers Care Vp Software Engineering Name Role Phone Chio Hill Olga [facility] Primary Care Provider [phone] Veronica Everett RN Unavailable Candice Martinez [facility] Primary Care Provider Candice Martinez [facility] Primary Care Provider Candice Martinez [facility] Primary Care Provider Encounter Details Date Type Department Care Team (Late st Contact Info) Description 12/24/2020 Procedure Pass [facility], [address] [address] Social History Tobacco Use Types Packs/Day Years [...] documented as of this encounter Care Teams Vp Software Engineering Relationship Specialty Start Date End Date Sergio Chio DICKSON Espinoza 15 [facility], 2nd [place] [address] PCP - General Family Medicine 08/27/19 07/31/23 Candice Martinez CNP [address] [place] [address] PCP - General Nurse Practitioner 08/01/23 09/05/23 Candice Martinez CNP [address] [place] [address] PCP - General Nurse Practitioner 09/06/23 09/06/23 Candice Martinez CNP [address] [place] [address] PCP - General Nurse Practitioner 09/07/23 Veronica Everett, RN [address] [place] [address] PHCM Director Medical AffairsWater Quality Technician 02/23/23 03/21/23 documented as of this encounter Additional Source Comments The information contained in this document represents components of the legal health record. It is not the complete legal health record.[facility]
--- OUTSIDE RECORDS SUMMARY | 2025-09-07 05:37 | XMS_ITS | Encounter Summary ---
Author Organization [facility] Address [facility] [facility] [address] [place] [address] Phone Care Team Providers Care Community Service Technician Name Role Phone Candice Martinez DICKSON Primary Care Provider Encounter Details Date Type Department Care Team (Latest Contact Info) Description 01/03/2024 Transcribe Orders Virtual Department [address] [place] [address] Milagros Zayas NP [address] [place] [address] Change in bowel habits (Primary Dx); Epigastric abdominal pain; RUQ abdominal pain Social History Tobacco Use Types Packs/Day Years [...] documented as of this encounter Results * US ABDOMEN LIMITED RIGHT UPPER QUADRANT (01/04/2024 11:05 AM EDT) Anatomical Region Laterality Modality Abdomen Ultrasound 01/04/2024 8:44 PM EDT Impressions 01/05/2024 5:41 AM EDT No cause for reported symptoms identified. Narrative 01/05/2024 5:41 AM EDT US ABDOMEN LIMITED RIGHT UPPER QUADRANT Referring clinician's provided indication for this examination in [facility]: Outside Radiology Order; change in bowel habits TECHNIQUE: US Abdominal limited right upper quadrant. COMPARISON: US ABDOMEN LIMITED RIGHT UPPER QUADRANT FINDINGS: Liver: No focal lesions. Normal background parenchymal echogenicity. Main Portal Vein: Patent with normal direction of flow. Gallbladder: No gallstones or gallbladder wall thickening. Gonzales's Sign: Negative. Biliary: No intrahepatic or extrahepatic biliary ductal dilatation. The common bile duct measures 4 mm. Procedure Note Sanket Morataya MD - 01/05/2024 US ABDOMEN LIMITED RIGHT UPPER QUADRANT Referring clinician's provided indication for this examination in [facility]:Outside Radiology Order; change in bowel habits TECHNIQUE: US Abdominal limited right upper quadrant. COMPARISON: US ABDOMEN LIMITED RIGHT UPPER QUADRANT FINDINGS: Liver: No focal lesions. Normal background parenchymal echogenicity. Main Portal Vein: Patent with normal direction of flow. Gallbladder: No gallstones or gallbladder wall thickening. Gonzales's Sign: Negative. Biliary: No intrahepatic or extrahepatic biliary ductal dilatation. The common bile duct measures 4 mm. IMPRESSION: No cause for reported symptoms identified. Milagros Zayas MINIATURE TRAIN DRIVER IMG US ABDOMEN Final Res ult documented in this encounter Visit Diagnoses Diagnosis Change in bowel habits- Primary Other symptoms involving digestive system Epigastric abdominal pain Abdominal pain, epigastric RUQ abdominal pain Abdominal pain, right upper quadrant Change in bowel habits Other symptoms involving digestive system Epigastric abdominal pain Abdominal pain, epigastric RUQ abdominal pain Abdominal pain, right upper quadrant documented in this encounter Additional Health Concerns Assessment Noted Time PHQ-9 Depression Total Score: 0 11/14/19 24 1:31 PM EST PHQ-2 Depression Total Score: 0 11/14/19 24 1:31 PM EST documented as of this encounter Care Teams Community Service Technician Relationship Specialty Start Date End Date Candice Martinez CNP [address] [place] [address], [address] [place] [address] [email or web address] PCP - General Nurse Practitioner 09/07/23 documented as of this encounter Additional Source Comments The information contained in this document represents components of the legal health record. It is not the complete legal health record.[facility]
--- OUTSIDE RECORDS SUMMARY | 2025-09-07 05:37 | XMS_ITS | Encounter Summary ---
Author Organization [facility] Address Counts include 234 beds at the [facility] [address] [place] [address] Phone Care Team Providers Care 4Th Grade Math Teacher Name Role Phone Candice Martinez CNP Primary Care Provider Encounter Details Date Type Department Care Team (Late st Contact Info) Description 12/25/2023 Telephone [facility] [address] [place] [address] Candice Martinez CNP [address], [address] [place] [address] [email or web address] Social History Tobacco Use Types Packs/Day Years [...] documented as of this encounter Care Teams 4Th Grade Math Teacher Relationship Specialty Start Date End Date Candice Martinez CNP [address] [place] [address], [facility] [address] [place] [address] [email or web address] PCP - General Nurse Practitioner 09/07/23 documented as of this encounter Additional Source Comments The information contained in this document represents components of the legal health record. It is not the complete legal health record.[facility]
--- OUTSIDE RECORDS SUMMARY | 2025-09-07 05:37 | XMS_ITS | Clinical Summary ---
Author Organization [facility] Address [address] [place] [address] Care Team Providers Care Fire Protection Engineer Name Role Phone Unknown Primary Care [...] of 2) 2011 COVID-19 Vaccine (2 - 2024-2 6 season) 2025 12/25/2020 RSV Vaccine 50 years and old er and Patients (1 - 1-dose 75+ series) 2036 Hepatitis B Vaccines Aged Out No long er eligible based on patient's age to complete this topic Care Teams Fire Protection Engineer Relationship Specialty Start Date End Date Unknown Unknow Provider Address PCP - General 02/05/20
--- OUTSIDE RECORDS SUMMARY | 2025-09-07 05:37 | XMS_ITS | Encounter Summary ---
Author Organization [facility] Address [facility] [address] [place] [address] Phone Care Team Providers Care Brush Stainer Name Role Phone Candice Martinez DICKSON Primary Care Provider Encounter Details Date Type Department Care Team (Late st Contact Info) Description 09/07/2023 Procedure Pass [facility], [address] [place] [address] Social History Tobacco Use Types Packs/Day Years [...] documented as of this encounter Care Teams Brush Stainer Relationship Specialty Start Date End Date Candice Martinez CNP [address] [place] [address], [address] [place] [address] [email or web address] PCP - General Nurse Practitioner 09/07/23 documented as of this encounter Additional Source Comments The information contained in this document represents components of the legal health record. It is not the complete legal health record.[facility]
--- OUTSIDE RECORDS SUMMARY | 2025-09-07 05:37 | XMS_ITS | Encounter Summary ---
Author Organization [facility] Address [address] [place] [address] Phone Care Team Providers Care Park Police Name Role Phone Chio [place] Olga [facility] Primary Care Provider [phone] Veronica Everett RN Unavailable [phone] Candice Martinez [facility] Primary Care Provider Candice Martinez [facility] Primary Care Provider [phone] Candice Martinez [facility] Primary Care Provider Encounter Details Date Type Department Care Team (Late st Contact Info) Description 06/21/2022 Procedure Pass [facility], [address] [address] Social History Tobacco Use Types Packs/Day Years [...] documented as of this encounter Care Teams Park Police Relationship Specialty Start Date End Date [email or web address] cox [address] [facility], 2nd [place] [address] PCP - General Family Medicine 08/27/19 07/31/23 Candice Martinez CNP [address] [place] [address] PCP - General Nurse Practitioner 08/01/23 09/05/23 Candice Martinez CNP [address] [place] [address] PCP - General Nurse Practitioner 09/06/23 09/06/23 Candice Martinez CNP [address] [place] [address] PCP - General Nurse Practitioner 09/07/23 Veronica Everett, RN [address] [place] [address] PHCM Sack KeeperSewing Demonstrator 02/23/23 03/21/23 documented as of this encounter Additional Source Comments The information contained in this document represents components of the legal health record. It is not the complete legal health record.[facility]
--- OUTSIDE RECORDS SUMMARY | 2025-09-07 05:37 | XMS_ITS | Encounter Summary ---
Author Organization [facility] Address [email or web address] [facility] [address] [place] [address] Phone Care Team Providers Care Convolute Tube Winder Name Role Phone Candice Martinez DICKSON Primary Care Provider Encounter Details Date Type Department Care Team (Late st Contact Info) Description 02/27/2025 Procedure Pass [facility] [address] [place] [address] Social History Tobacco Use Types Packs/Day Years [...] EST PHQ-2 Depression Total Score: 0 11/14/19 1:31 PM EST documented as of this encounter Care Teams Convolute Tube Winder Relationship Specialty Start Date End Date Candice Martinez CNP [address] [place] [address], [address] [place] [address] [email or web address] PCP - General Nurse Practitioner 09/07/23 documented as of this encounter Additional Source Comments The information contained in this document represents components of the legal health record. It is not the complete legal health record.[facility]
--- OUTSIDE RECORDS SUMMARY | 2025-09-07 05:37 | XMS_ITS | Clinical Summary ---
Author Organization [facility] Address [facility] [employer] [address] [address] Phone Care Team Providers Care Contract Administration Coordinator Name Role Phone Candice Martinez DICKSON Primary Care Provider Allergies Active Allergy Reactions Criticality Noted Date Comments Bee Pollen Anaphylaxis High 07/30/2019 Latex Rash Low 07/30/2019 Penicillins Rash Low 10/13/2017 Shellfish Containing Products Anaphylaxis High 10/13 Medications aspirin 81 mg chewable tabletIndicatio ns:Atherosclero sis of [place] coronary artery of [place] heart with stable angina pectoris Take 81 mg by mouth daily. Active valACYclovir (VALTREX) 500 MG tabletIndicatio ns:Herpes simplex Take 1 tablet (500 mg total) by mouth 2 (two) times a day. Take 500 mg by mouth 2 (two) times a day for 3 days 6 tablet 3 01/07/20 22 Active Additional Information Patient taking differently:500 mg Oral 2 times daily,Take 500 mg by mouth 2 (two) times a day for 3 days prn, Reported on 03/18/2025 EPINEPHrine 0.3 mg/0.3 mL auto-injector Inject 0.3 mL (0.3 mg total) into the muscle as needed for anaphylaxis. 2 each 1 05/23/20 22 Active acetaminophen (TYLENOL) 325 mg tablet Take 2 tablets (650 mg total) by mouth every 6 (six) hours as needed for mild pain. 0 06/04/20 22 Active omeprazole (PRILOSEC) 20 MG capsule Take 20 mg by mouth daily. 06/16/20 22 Active COLLAGEN MISC Take 1 Dose by mouth daily. Powder in her coffee daily Active Medication-Free Text Take 1 Dose by mouth daily. Mushroom powder in coffee daily Active LORazepam (ATIVAN) 0.5 MG tabletIndicatio ns:Anxiety Take 1 tablet (0.5 mg total) by mouth every 6 (six) hours as needed for anxiety. 5 tablet 01/29/20 24 Active DULoxetine (CYMBALTA) 60 MG capsuleIndicati ons:Anxiety TAKE 1 CAPSULE BY MOUTH EVERY DAY 90 capsule 1 09/19/20 24 Active Additional Information Patient taking differently: 90 mgOral Daily,90 mg, Reported on 03/18/2025 sertraline (ZOLOFT) 100 MG tablet TAKE 1 & 1/2 TABLETS BY MOUTH ONCE DAILY 11/26/19 25 Active isosorbide mononitrate (IMDUR) 30 MG 24 hr tablet TAKE 1 TABLET BY MOUTH EVERY DAY 90 tablet 3 01/11/20 25 Active rosuvastatin (CRESTOR) 40 MG tablet Take 1 tablet (40 mg total) by mouth daily. 01/10/20 25 Active dilTIAZem (CARDIZEM CD) 180 MG 24 hr capsuleIndicati ons:Chronic ischemic heart disease TAKE 1 CAPSULE BY MOUTH EVERY DAY 90 capsule 3 02/01/20 25 Active buPROPion (WELLBUTRIN XL) 150 MG ER 24 hr tablet Take 150 mg by mouth daily. Active celecoxib (CELEBREX) 200 MG capsule Take by mouth daily. Active losartan (COZAAR) 100 MG tabletIndicatio ns:Benign essential hypertension TAKE 1 TABLET BY MOUTH EVERY DAY 90 tablet 3 05/05/20 25 Active traZODone (DESYREL) 100 MG tabletIndicatio ns:Primary insomnia TAKE 1 TABLET BY MOUTH EVERYDAY AT BEDTIME 90 tablet 1 07/10/20 25 Active diclofenac sodium (VOLTAREN) 1 % GelIndications: Medication refill Apply 2 g topically 4 (four) times a day. 50 g 2 07/29/20 25 Active busPIRone (BUSPAR) 10 MG tablet Take 1 tablet (10 mg total) by mouth 2 (two) times a day. 180 tablet 3 08/04/20 25 Active hydrOXYzine (ATARAX) 25 MG tabletIndicatio ns:Anxiety Take 1 tablet (25 mg total) by mouth 3 (three) times a day as needed for anxiety. 270 tablet 08/05/20 25 Active cyclobenzaprine (FLEXERIL) 5 MG tabletIndicatio ns:Fibromyalgia TAKE 1 TABLET (5 MG TOTAL) BY MOUTH 3 (THREE) TIMES A DAY NEEDED (MYALGIA). 90 tablet 09/02/20 25 Active cyclobenzaprine (FLEXERIL) 5 MG tabletIndicatio ns:Fibromyalgia Take 1 tablet (5 mg total) by mouth 3 (three) times a day as needed (myalgia). 90 tablet 08/04/20 25 025 Discontinued Active Problems Problem Noted Date Diagnosed Date Chest pain 02/27/2025 Assessment & Plan (02/27/2025 10:37 AM EDT): See coronary artery disease assessment and plan for management. Lower extremity pain, bilateral 02/27/2025 Assessment & Plan (02/27/2025 10:38 AM EDT): Patient reports a heaviness in her bilateral legs along with pain and is unable to walk for long periods of time. Patient states that she used to be able to use a walking pad but has been unable to do so due to pain. Will order a bilateral venous duplex ultrasound to evaluate for vascular disease. Plan: Bilateral venous duplex ultrasound Follow-up after testing RLS (restless legs syndrome) 01/07/2025 Mid back pain on right side 12/06/2023 Assessment & Plan (12/06/2023 4:21 PM EDT): Patient presents with 11 days of mid back/right rib pain. Pain is reproducible on palpation of right posterior lower ribs and musculature. I not suspect this is abdominal pain radiating to the back. She has no red flag symptoms. I suspect this is a muscular strain given the history and exam. Discussed management with NSAIDs, heat/ice, avoiding exacerbating movements, and beginning stretching when tolerated. We discussed short course of cyclobenzaprine. Encouraged to follow up if not improving over the next few weeks with this treatment plan. Acute bilateral low back pain with bilateral sci atica 10/06/2023 Assessment & Plan (10/06/2023 3:22 PM EST): Patient reports low back pain flaring about a month ago and worsening this week. Pain with palpation over SI joint and reports sciatica bilaterally. She denies b/b changes. She is using OTC ibuprofen and acetaminophen. Counseled her on safe dosages of these. We agreed to trial cyclobenzaprine today. Medication administration/risks/benefits/side effect profile discussed. Discussed management of low back pain includes heat, ice, massage, and gentle exercises/stretching. Placed referral for [facility] orth[facility] as requested. She will follow up in three weeks if pain continues. Shortness of breath 10/06/2023 Assessment & Plan (02/27/2025 10:36 AM EDT): Patient reports significant dyspnea with exertion. Will order an echo to evaluate. Assessment & Plan (10/10/2023 10:49 AM EST): Chronic exertional shortness of breath which started at least 1 year prior to initial pulmonary evaluation. She has a history of non-obstructive CAD on nitrate therapy. CTPA from 05/2022 (performed during hospitalization for ischemic colitis status post colectomy) was negative for PE, notable for pulmonary edema with associated moderate right and small to moderate left pleural effusions, consistent with volume overload following fluid resuscitation. Echo from 05/2022 with normal LVEF, mild to moderate mitral regurgitation. Cardiac stress test from 05/2022 negative for ischemia. She is a former smoker (around 20 pack-years, quit > 20 years prior to initial pulmonary evaluation). Her family history is notable for 3 siblings with asthma. No prior PFTs available for review. PFTs from 11/03/2022 were normal aside from a markedly impaired ERV and mildly impaired diffusion capacity which are likely secondary to body habitus +/- anemia. Chest x-ray from 11/03/2022 was clear, unremarkable, and demonstrated interval resolution to pleural effusions. Altogether, her shortness of breath seems less likely to be due to a pulmonary issue. She did not previously benefit from empiric initiation of albuterol MDI and given low suspicion for asthma, we previously discussed not pursuing empiric ICS or methacholine challenge testing. Possible contributors to her shortness of breath could include body habitus, deconditioning, anemia, CAD, mitral regurgitation. Previously, she did notice some improvement in her shortness of breath following initiation of Imdur. It is possible she could have some microvascular disease that could be contributing to her exertional dyspnea. Today, we reviewed her prior testing in detail in the context of worsening exertional shortness of breath. 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 Plan: -No additional pulmonary work-up is indicated at present -Recommend follow-up with cardiology and consideration of trial of increasing Imdur -We discussed the possibility of pursuing methacholine challenge testing and agreed to hold off on this pending conversation with cardiology -Encourage exercise in the setting of obesity and deconditioning which could be contributing issues -Ongoing optimization of depression (per chart with auditory hallucinations) Assessment & Plan (10/06/2023 3:25 PM EST): She is having episodes of SOB, feeling like I can't catch my breath . She is able to pause and deep breathe and this helps. I suspect this is due to anxiety. She is able to speak in clear and full sentences today. No respiratory distress. Lungs CTAB. Will continue to monitor. Auditory hallucination 08/29/2023 Assessment & Plan (09/07/2023 9:15 PM EST): We discussed I suspect these are related to her uncontrolled anxiety and depression. They have not worsened since our last visit. After shared decision making we will proceed with an brain MRI. Assessment & Plan (08/29/2023 5:48 PM EST): She has had auditory hallucinations for the last few months, she didn't recognize this was happening at first. She has not experienced this previously in her life. She describes as muffled voices, denies command hallucinations. Neuro exam grossly intact. We discussed this could be related to her worsening anxiety and insomnia. She will discontinue supplement use as this could be contributing. She will go for lab work. I have reviewed additional labs in from May which were normal. Memory change 08/29/2023 Assessment & Plan (08/29/2023 5:53 PM EST): She reports a stable change in her memory. She reports trouble remembering things, like recalling medications she is taking during our visit today, but she is able to eventually recall them. I suspect this is related to her insomnia. We discussed neurology work up if improvement in sleep does not help with this. I have placed referral for this today. 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 Ulloa who was informed of the results Assessment & Plan (02/27/2025 10:36 AM EDT): Referral to Haley Paige MD for evaluation. Assessment & Plan (07/27/2022 10:11 AM EDT): Given recent incidental finding, she would like to follow up with a vascular specialist regarding this diagnosis. Denies edema, no DVT. Not aware of any relation in regard to May-Thurner and ischemic bowel. Recent abdominal MRI unremarkable aside from 50% compression of left common iliac vein. Referred to Dr Paige at [facility]. Assessment & Plan (07/07/2022 3:38 PM EDT): I do not know of an association between MTS & ischemic bowel. She will be seeing her road freight brake coupler/ vascular specialist soon. S/P right colectomy 06/09/2022 Overview (06/09/2022): Dr. Byrd. 05/2022 History of ischemic bowel disease 06/06/2022 Assessment & Plan (06/06/2022 4:09 PM EDT): She was recently hospitalized and brought to the operating room where she was found to have ischemia of the ascending colon. She did have a right colectomy. We will consider doing a mesenteric artery scan after her next follow-up. Herpes simplex 01/21/2021 Overview (01/21/2021): R buttocks Assessment & Plan (09/07/2023 9:06 PM EST): Stable, managed on valacyclovir 500mg as needed during outbreaks. Assessment & Plan (01/21/2021 3:22 PM EDT): tx outbreaks w valtrex as soon as sx start Pain in both hands 10/30/2020 Assessment & Plan (10/30/2020 11:37 AM EST): Continue Cybalta 40 mg once daily for hand pain relief. Muscle rubs with lidocaine for additional joint pain relief as needed. Bruit of left carotid artery 09/24/2020 Overview (11/03/2020): Carotid UL 2018 was normal Carotid UL 2020 normal Assessment & Plan (02/28/2024 11:22 AM EDT): She has a known carotid bruit however her carotid duplex study shows 0-50% stenosis bilaterally. Assessment & Plan (06/06/2022 4:07 PM EDT): Carotids were normal in 2019. Pulsatile tinnitus of both ears 09/24/2020 Overview (08/25/2022): No cause for sx found on MRA of brain or carotid UL Assessment & Plan (08/25/2022 12:54 PM EST): Negative vascular w/u. Referred to audiology. Many cases of tinnitus are idiopathic. Masking techniques can be helpful. Assessment & Plan (09/24/2020 2:22 PM EST): MRA brain & carotid Ul ordered Benign essential hypertension 05/14/2020 Assessment & Plan (02/28/2024 11:22 AM EDT): Blood pressure is well-controlled today at 120/62. She will continue her medications without change which includes losartan 100 mg daily, isosorbide 30 mg daily, diltiazem 180 mg daily. She is encouraged follow her healthy diet, low sodium and to continue exercising. SBP goal less than 130/80. Assessment & Plan (09/06/2023 9:30 PM EST): Stable. Well controlled at this time, normotensive today. Managed on diltiazem 180mg, losartan 100mg, and isosorbide 30mg. Continues to follow with cardiology. Assessment & Plan (09/06/2023 1:07 PM EST): Blood pressure is well-controlled today below guidelines of less than 130/80. BP today 110/66. She is on isosorbide 30 mg daily, diltiazem 180 mg daily and losartan 100 mg daily. She is encouraged to follow low sodium diet. Assessment & Plan (02/01/2023 12:51 PM EDT): Well-controlled Assessment & Plan (11/09/2022 9:13 AM EST): Well-controlled Assessment & Plan (08/25/2022 1:03 PM EST): Losartan increased to 100 mg. FU 1 month Assessment & Plan (06/06/2022 4:06 PM EDT): Blood pressure in the office today is adequately controlled. No medication changes. Assessment & Plan (05/23/2022 10:24 AM EDT): Continue current regimen. The importance of exercise and healthy eating were reviewed today Assessment & Plan (02/09/2022 12:23 PM EDT): Her blood pressures have been elevated at home 150s 160s systolic. She did get confused with her medications and stopped taking her isosorbide. We did change her lisinopril to losartan due to developing a cough. Her medications include diltiazem 180 mg daily, losartan 50 mg daily, I am restarting her isosorbide mononitrate 30 mg daily for reports of chest discomfort. We will see her back here in a couple of weeks to see if her blood pressure has improved. If her blood pressure does not improve despite restarting the isosorbide we will increase her losartan to 100 mg daily. She is encouraged to follow heart healthy diet including low sodium and to exercise. Assessment & Plan (01/06/2022 1:14 PM EDT): Well controlled Assessment & Plan (10/13/2021 5:20 PM EST): Well controlled Assessment & Plan (06/28/2021 8:12 PM EDT): Well controlled Assessment & Plan (04/06/2021 3:54 PM EDT): Her blood pressure today is 134/70. She does have coronary artery disease therefore her blood pressure goal should be less than 130/80. She is on losartan 50 mg daily, isosorbide mononitrate 30 mg daily, diltiazem 180 mg daily, aspirin 81 mg daily, atorvastatin 20 mg daily. She will remain on these medications for now. I did ask her to watch her diet for increased sodium that is hidden in her food. She does report that she does eat pretty healthy diet eating mostly fresh foods but she does like cheese and does go out to eat. She will continue to exercise. If her blood pressure remains elevated we will consider increasing her losartan to 100 mg daily. He was asked to continue checking her blood pressures at home to monitor for any high blood pressure. Assessment & Plan (12/31/2020 3:48 PM EDT): stable Assessment & Plan (05/14/2020 9:32 PM EDT): She will start home Bp monitoring & email me update in 1-2 weeks Pain of both hip joints 04/02/2020 Assessment & Plan (10/30/2020 11:35 AM EST): Hips stable today on exam. Continue Cymbalta 40 mg once daily for hip pain relief. Degenerative disc disease, lumbar 03/31/2020 Assessment & Plan (06/28/2021 8:14 PM EDT): She has chronic back pain- we discussed PT, exercise, chiropractic treatment, tylenol as needed. She has benefited from low dose Cymbalta for fibromyalgia pain & would like to try higher dose in the hopes it will help with back pain too. Assessment & Plan (03/08/2021 5:33 PM EDT): Will try pred taper for acute pain, possible side effects reviewed. Advised not to take NSAIDs because of CAD. Referred for PT Restart cymbalta at 20 mg Assessment & Plan (12/31/2020 3:49 PM EDT): She decided not to start amitriptyline. I did reassure her that interaction is very unlikely at this low of a TCA dose, and especially as she is tapering off cymbalta. Assessment & Plan (10/30/2020 11:34 AM EST): Trial of Amitriptyline 10 mg PO qhs. Patient educated medication can help with bony joint back pain. Patient has failed Meloxicam, Nabumetone, and Tylenol Arthritis. Assessment & Plan (05/14/2020 9:30 PM EDT): She will switch back from Relafen to mobic. She was cautioned that all NSAIDs can aggravate HTN & caution advised in pts w/ CAD Primary insomnia 03/18/2020 Overview (09/07/2023): Trazodone caused side effects Uses OTC doxylamine Doxepin did not work. Assessment & Plan (11/23/2023 11:57 AM EST): Followed by Dr. Harris. Prescribed Lunesta, she reports this is helping some, but still with struggles falling and staying asleep. She is going to reach back out to consider a higher dose. Assessment & Plan (09/07/2023 9:05 PM EST): She continues to struggle with falling and staying asleep. We discussed really focusing on good sleep hygiene . She has a tendency to get up and eat when she cannot sleep at night. We discussed working on changing these habits. She recently got a gym membership and will be exercising more. Assessment & Plan (08/29/2023 5:49 PM EST): Patient continues to struggle with sleep. She does not feel the reduction in Wellbutrin made a difference. She tried the doxepin and it did not work for her. We discussed focusing on good sleep hygiene. She will begin use of hydroxyzine for anxiety and also take this at bedtime. Assessment & Plan (11/09/2022 9:12 AM EST): Sleeping much better now, using gabapentin 200 mg nightly. reports that she has snoring and she is referred to sleep medicine Assessment & Plan (08/25/2022 12:41 PM EST): We just started gabapentin for FM but it seems to be helping her sleep as well. Will monitor. Assessment & Plan (03/18/2020 5:46 PM EDT): She may try CBD before bed. Reviewed CBT I tools/ apps. Consider amitriptyline if worsens Reduced libido 01/03/2020 Assessment & Plan (11/23/2023 11:59 AM EST): We discussed how female sexual dysfunction is multifactorial. I suspect her current marital issues and depression/anxiety play the biggest role in this. Encouraged to move forward with couples therapy. She reports this has been ongoing and she would like to see a specialist. Prior patient of Dr. Vazquez. We agreed to a referral to [facility] at this time. Dizziness 12/04/2019 Assessment & Plan (02/27/2025 10:37 AM EDT): Patient reports lightheadedness with changes in position along with headache. Patient had a carotid ultrasound that showed no narrowing or stenosis in 2020. Will repeat a carotid ultrasound to evaluate for possible stenosis. Plan: Bilateral carotid ultrasound Follow-up after testing Assessment & Plan (03/03/2020 11:11 AM EDT): I asked her to completely hold the trazodone for the next week. When she has a follow-up in office in 2 weeks she will let me know if this had an effect on her dizziness Assessment & Plan (12/04/2019 8:54 PM EDT): Vague sx w unclear cause. Will get most recent carotid UL, update if needed. Hold trazodone for a week to see if sx improve Fibromyalgia 08/28/2019 Assessment & Plan (01/09/2025 1:55 PM EDT): Discussed symptoms she is experiencing do sound consistent with flare of fibromyalgia. Negative rheum labs. She has not had joint swellings or rashes. We held statin to ensure this is not contributing, no improvement. She will restart rosuvastatin. Discussed trial on cyclobenzaprine. Educated on medication administration, benefits, risks, and side effects profile. I have recommended she go for consult with [facility] pain management and begin PT for low back pain given this is the most flared site of pain. Assessment & Plan (09/06/2023 9:32 PM EST): Stable, she reports continued diffuse aching pain, but this is not worsened. She is taking duloxetine 60mg and gabapentin 200mg. She does not feel the gabapentin is doing anything for her at this time. She would like to try discontinuing this as she feels it is contributing to her weight gain. We discussed trying to taper medication and see if her pain worsens. Assessment & Plan (11/09/2022 9:13 AM EST): Continue Cymbalta and gabapentin 200 mg nightly Assessment & Plan (08/25/2022 12:39 PM EST): She is on 200 mg nightly of gabapentin since yesterday. She will take that dose for a couple of nights & then titrate to 300 mg nightly. She will let me know via mychart or at next FU how she feels on that dose Assessment & Plan (05/23/2022 10:24 AM EDT): Current regimen. The importance of stretching discussed Assessment & Plan (01/06/2022 1:16 PM EDT): Continue cymbalta 40 mg. Ok to use baclofen on occasion for muscle pain & tightness Assessment & Plan (10/13/2021 5:21 PM EST): She remains on 20 mg cymbalta & is doing well so will continue that dose. Assessment & Plan (06/28/2021 3:56 PM EDT): Increase cymbalta to 40 mg for chronic pain Assessment & Plan (03/08/2021 5:34 PM EDT): Restart cymbalta 20 mg Assessment & Plan (12/31/2020 3:50 PM EDT): Cynbalat has really helped, but unfortunately she attributes some weight gain to it, so she has opted to taper off it. She will decreased from 40 to 20, then 20 BID (optionsl) and then stop. Asked to track pain scale & also monitor depression closely Assessment & Plan (09/24/2020 2:21 PM EST): Increase to 40 mg cymbalta Assessment & Plan (05/14/2020 9:28 PM EDT): Continue cymbalta Assessment & Plan (03/18/2020 5:44 PM EDT): Continue cymbalta 20 mg Assessment & Plan (03/03/2020 11:10 AM EDT): Start Cymbalta 20 mg. Possible side effects reviewed with her. She has an upcoming consult with rheumatology next month. 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 Started Climara patch 07/2019. Coronary artery disease invo lving [place] coronary artery of [place] heart with angina pectoris 08/20/2019 Overview (11/09/2022): Cardiac Cath January 2018 60% mid LAD lesion felt not to be hemodynamically significant Most recent Nuclear 05/2019, Dr Fair Switching to Dr Ulloa Assessment & Plan (02/27/2025 10:36 AM EDT): Patient reports chest pain on exertion. She describes it as a burning, tightening sensation. This happens when she is walking and is better with rest. Will order a stress test and echo to evaluate. Patient's last stress test in 2021 showed no evidence of ischemia. Patient symptoms have been getting worse over the last 3 months. Plan: Continue aspirin Echo Stress test Follow-up after testing Assessment & Plan (02/28/2024 11:22 AM EDT): Continues to be asymptomatic. Will continue to optimize her cardiac risk factors. Will continue aspirin 81 mg daily lifelong, diltiazem 180 mg daily, isosorbide 30 mg daily, losartan 100 mg daily, rosuvastatin 40 mg daily. PCP is following lipid panel. She is encouraged follow heart healthy diet including low sodium and to continue exercising. LDL goal less than 70 mg/dL. Assessment & Plan (09/07/2023 9:03 PM EST): Stable, she continues to follow with cardiology, follows heart healthy diet and is beginning to exercise. Continues on aspirin 81mg, diltiazem 180mg, isosorbide 30mg, losartan 100mg, and rosuvastatin 40mg. Assessment & Plan (09/06/2023 1:07 PM EST): Cardiac catheterization in January 2018 showed 60% mid LAD lesion but felt not to be hemodynamically significant. She is being medically managed and continues to be asymptomatic at this time. Her medications include aspirin 81 mg daily, diltiazem 180 mg daily, isosorbide 30 mg daily, losartan 100 mg daily, rosuvastatin 40 mg daily. She will continue to be on these medications without change. She is encouraged to follow heart healthy diet: Low sodium and to start exercising. She recently got a membership to the gym and interested in going to start exercise. Assessment & Plan (11/09/2022 9:13 AM EST): Continue current regimen. Follow with cardiology. Lipid panel today. Assessment & Plan (07/27/2022 10:11 AM EDT): Her main symptom is really dyspnea on exertion, which has been present for a few years and may be progressing a bit- it limits her ability to do much in way of physical exertion. She tells me that her dyspnea is not consistently associated with exertional chest pain. She has a known 60% LAD lesion (from cardiac catheterization in 2018). We reviewed her recent normal nuclear stress test. She also had an essentially unremarkable echo last moth (mild to moderate MR). Unlikely her dyspnea is of cardiac nature. Given her smoking history, I have referred her to pulmonology for further evaluation of dyspnea. In light of known CAD, we will continue to optimize her cardiovascular risk factors. She will remain on 81 mg aspirin indefinitely. She no longer smokes (quit around age 41) and is as active as her breathing allows. Her LDL is a bit above goal and we discussed cutting back on egg and cheese intake. She will continue rosuvastatin at current dose for now. Assessment & Plan (06/06/2022 4:08 PM EDT): See above plan. Assessment & Plan (05/23/2022 10:24 AM EDT): She has been having more angina. I asked her to call cardiology. She will do so today. Assessment & Plan (02/09/2022 12:24 PM EDT): She does report more episodes of chest discomfort that are not associated particular with activity or rest. She will restart her isosorbide mononitrate 30 mg daily after discontinuing this medication by accident. She will also continue her diltiazem 180 mg daily, losartan 50 mg daily, aspirin 81 mg daily, atorvastatin 40 mg daily. We will see her in follow-up in a couple weeks to monitor her blood pressure and to make medication adjustments as necessary. Assessment & Plan (04/06/2021 3:56 PM EDT): Cardiac cath in January 2018 showed 60% mid LAD lesion. She is asymptomatic at this time. She had a nuclear stress test in May [address] Capps and transferred her care here to Dr. Ibrahim. She will remain on aspirin lifelong. She is going through menopause and is having some symptoms which she went to her SENIOR SPEECH PATHOLOGIST for possible hormonal replacement. He requested that she be seen here in the cardiology office to see what her risk were with hormone replacement. I did provide her with some information from up-to-date which shows estrogen gives low significant risk for increase in coronary artery disease. It will be up to her SENIOR SPEECH PATHOLOGIST to see what she would be placed on. Overall her risk of hormone replacement for menopause is low for worsening of coronary artery disease. We will continue to monitor her here in the office. Assessment & Plan (05/14/2020 9:27 PM EDT): Start imdur. Ways to decrease risk of lightheadedness reviewed Assessment & Plan (12/04/2019 8:51 PM EDT): Medically managed. Encouraged to resume exercise gradually Assessment & Plan (08/28/2019 2:29 PM EST): Pt reporting increase in Anginal sx. No ischemic changes on EKG. 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 I have asked her to go through her medications and get us an updated medication list. She will message on the portal to clarify medications. She will also request notes be shared with us from [place]. Assessment & Plan (09/12/2024 9:11 PM EST): Discussed medication has not been taken at an effective dose thus far. Important to continue to take the buspirone 10mg BID. Continue on duloxetine. She continues to work with therapist and is benefiting form this. Discussed recommendation to find and work with a psychiatrist [place] [facility] as we have had trouble finding and stabilizing on the right medication. I have placed a referral to behavioral health today. Jodi will return in four weeks for follow up. Will follow up sooner if symptoms worsen or new symptoms arise. Assessment & Plan (04/24/2024 12:58 PM EDT): Jodi is tolerating duloxetine 30mg and aripiprazole 5mg well. Noticed an improvement in anxiety with last dose change but reports still not feeling adequately managed. We discussed and agreed to a dose change to duloxetine 40mg and aripiprazole 5mg. Encouraged to continue with therapist regularly. Discussed techniques to minimize minerva gain. She will follow up in four weeks to let me know how she is doing at this dose. Assessment & Plan (02/21/2024 1:14 PM EDT): Jodi presents for follow up and is feeling a bit better on duloxetine 20mg and aripiprazole 10mg. She denies side effects. We agreed to increase the dose of duloxetine to 30mg at this time and taper down again on the aripiprazole as she does not think she is benefiting from this. She will continue to use lorazepam very sparingly for panic. Encouraged to continue with therapy. Encouraged to increase exercise. She will return for follow up in 3 weeks. Will follow up sooner if symptoms worsen or new symptoms arise. Assessment & Plan (01/30/2024 12:04 PM EDT): Jodi continues to experience worsening depression and anxiety despite dose increase of aripiprazole to 15mg. Denies SI/HI. We had a discussion about past use of duloxetine and she does report more benefit from this medication and she tolerated it well. We will restart duloxetine at 20mg and reduce aripiprazole to 10mg. Discussed continuing this dose for two weeks and then reducing to 5mg. Advised to continue hydroxyzine as needed and did write for lorazepam to be used for severe panic. Educated on benefits, risks, and side effects of these medications, including risk of dependency of benzos. Jodi has a scheduled visit with me in 3 weeks and we will follow up at that time. Assessment & Plan (11/23/2023 11:49 AM EST): Finished consultation with Abigail Pack and reports improvement on ariprazole 10mg, I will take over prescribing this medication. Working with a therapist weekly now. Denies SI/HI. Going through marital difficulties, encouraged her to go forward with couples therapy. Assessment & Plan (09/07/2023 9:08 PM EST): She is currently taking Wellbutrin 300mg and duloxetine 60mg, this is poorly controlled at this time. Denies SI/HI. Discussed the importance of continuing to look for a therapist. She has an appointment for consult with clinical psychology teacher Abigail Pack tomorrow. Assessment & Plan (02/01/2023 12:51 PM EDT): Doing better. Less stress at home & dose increase of duloxetine helped. She will continue looking for therapist and continue current regimen Assessment & Plan (01/02/2023 5:07 PM EDT): I recommend she start therapy. Increase Cymbalta to 60 mg. Continue Wellbutrin 450 mg. Follow-up with me in 4 weeks. Assessment & Plan (11/09/2022 9:12 AM EST): She requests increasing Wellbutrin dose. She is currently taking 300 mg. We will add additional 150 mg. Reassess in the spring. Assessment & Plan (08/25/2022 12:41 PM EST): A lot of stress at home, caring for brother who has advanced cancer. Worries about her family. Assessment & Plan (05/23/2022 10:25 AM EDT): She request dose increase of Wellbutrin. She feels the increase stress in her life is affecting her mood and contributing to night eating. Self-care was addressed at length. Increase Wellbutrin to 300 mg. Follow-up in 3 months. Assessment & Plan (01/06/2022 1:15 PM EDT): Doing well Assessment & Plan (10/13/2021 5:22 PM EST): Doing well Assessment & Plan (06/28/2021 8:16 PM EDT): Doing well on wellbutrin & cymbalta Assessment & Plan (01/21/2021 3:22 PM EDT): Tapered off cymbalta,. Having mild withdrawal sx. Declines longer taper. Assessment & Plan (12/31/2020 3:50 PM EDT): Continue wellbutrin. She will taper off cymbalta. She will let me know how it goes. Assessment & Plan (05/14/2020 9:27 PM EDT): Doing well w cymbalta Assessment & Plan (03/18/2020 5:44 PM EDT): Continue wellbutrin 150 mg & Cymbalta 20 mg Assessment & Plan (03/03/2020 11:10 AM EDT): We are starting Cymbalta for her fibromyalgia. We will decrease her dose of Wellbutrin to 150 mg and start Cymbalta 20 mg. She will have a 2-week follow-up. Assessment & Plan (12/04/2019 8:50 PM EDT): Continue wellbutrin. Assessment & Plan (08/28/2019 2:31 PM EST): Continue Wellbutrin Assessment & Plan (07/30/2019 2:32 PM EST): Increase wellbutrin to 300 mg, fu 1 month Anxiety 07/30/2019 Overview (11/23/2023): W/ auditory hallucinations 08/2023. Assessment & Plan (06/21/2024 1:00 PM EDT): Jodi is experiencing worsened anxiety again. We agreed to increase duloxetine to 60mg at this time. Continue to use hydroxyzine PRN. I would like her to continue with plan to have psychiatrist manage this in the future. Encouraged to continue therapy. She will return for follow up in 4 weeks. Assessment & Plan (04/24/2024 12:59 PM EDT): Jodi is tolerating duloxetine 30mg and aripiprazole 5mg well. Noticed an improvement in anxiety with last dose change but reports still not feeling adequately managed. We discussed and agreed to a dose change to duloxetine 40mg and aripiprazole 5mg. Encouraged to continue with therapist regularly. Discussed techniques to minimize minerva gain. She will follow up in four weeks to let me know how she is doing at this dose. Assessment & Plan (02/21/2024 1:14 PM EDT): Jodi presents for follow up and is feeling a bit better on duloxetine 20mg and aripiprazole 10mg. She denies side effects. We agreed to increase the dose of duloxetine to 30mg at this time and taper down again on the aripiprazole as she does not think she is benefiting from this. She will continue to use lorazepam very sparingly for panic. Encouraged to continue with therapy. Encouraged to increase exercise. She will return for follow up in 3 weeks. Will follow up sooner if symptoms worsen or new symptoms arise. Assessment & Plan (12/29/2023 4:11 PM EDT): Jodi continues to experience worsening anxiety. Did discuss the aripiprazole will take more time to take effect. Can increase and use hydroxyzine 50mg TID. Did advise again that I am not comfortable presciring Xanax given history with substance abuse. She has been referred to psychiatry and is awaiting an appointment. Did advise if anxiety worsens and she is feeling unstable or having any thoughts of self harm to seek crisis resources. Patient hung up prior to discussing recommended follow up visit. Assessment & Plan (12/27/2023 12:58 PM EDT): Jodi is experiencing worsening anxiety. She feels well supported at home, denies SI/HI. Encouraged to continue to work with therapist. We will increase her aripiprazole dose to 15mg. We will also add hydroxyzine to be used as needed for increased panic. Discussed concern of using benzos today given history with substance use disorder. I have placed a referral to [facility] as I do think she would benefit from working with a psychiatrist [place] [facility]. She will follow up in 3 weeks. Will follow up sooner if symptoms worsen or new symptoms arise. Assessment & Plan (11/23/2023 11:50 AM EST): Finished consultation with Abigail Pack and reports improvement on ariprazole 10mg, I will take over prescribing this medication. Working with a therapist weekly now. No longer having auditory hallucinations. Denies SI/HI. Encouraged her to continue with therapist, increase exercise, and relaxation techniques. Assessment & Plan (10/06/2023 3:25 PM EST): Followed by Abigail Pack DESIGN ENGINEER. Recent changes have been increasing Abilify to 10mg and decreasing duloxetine to 20mg. She reports anxiety sometimes feels well controlled and others worsened. I suspect the SOB is in relation to this. If she pauses and does deep breathing she can calm herself. I reiterated the importance of therapy in treatment of anxiety. I strongly encouraged her to pursue this treatment modality in addition to medication. She missed her last appointment with Abigail and is going to reschedule this. Assessment & Plan (09/07/2023 9:09 PM EST): She is currently taking Wellbutrin 300mg and duloxetine 60mg, this is poorly controlled at this time. Denies SI/HI. Discussed the importance of continuing to look for a therapist. She has an appointment for consult with clinical psychology teacher Abigail Pack tomorrow. Assessment & Plan (08/29/2023 5:43 PM EST): Patient reports worsened anxiety, she becomes overwhelmed with too many tasks outside of the house. She becomes tearful when discussing her tasks for today of having a doctors appointment and taking her dog to the groomer. We discussed the importance of therapy in our treatment of anxiety alongside medications. She is currently taking duloxetine 60mg and Wellbutrin 300mg. She will begin hydroxyzine today as needed for anxiety. I have placed a referral for consult with [facility] clinical psychology teacher for medication management consult. She denies SI/HI and feels safe at home. Assessment & Plan (07/30/2019 2:32 PM EST): Increase wellbutrin to 300 mg FU 1 month Chronic ischemic heart disease 07/30/2019 Overview (01/06/2022): With angina. Assessment & Plan (02/01/2023 12:51 PM EDT): Doing well. Follows with cardiology Assessment & Plan (06/06/2022 4:07 PM EDT): She reports that she has had chest discomfort with exertion for about a year. She did not report any chest discomfort while in the hospital. Her troponin levels were normal during her hospitalization. Given her reports of exertional chest discomfort, I am suggesting a nuclear stress test. I will follow-up with her after testing is been completed. Assessment & Plan (06/01/2022 8:24 AM EDT): No new concerns. She has not experienced any chest pain. Troponin levels normal. -- Continue usual medications including atorvastatin, isosorbide, diltiazem, ASA and losartan Assessment & Plan (01/06/2022 1:14 PM EDT): No recent angina. Follow up w cardiology for routine visit Assessment & Plan (07/30/2019 2:36 PM EST): Recommend she restart ASA 81 mg Piriformis syndrome 07/30/2019 Overview (08/28/2019): Right PT didn't help. Steroid Shots didn't help Seeing pain management, Dr Mcgrath, in [place] Assessment & Plan (08/28/2019 2:30 PM EST): Lidoderm patch prescribed. Can also use tylenol, heat & stretching Gastroesophageal reflux disease without esophagi tis 07/30/2019 Assessment & Plan (09/07/2023 9:06 PM EST): Stable, well managed on famotidine 40mg and omeprazole 20mg, denies symptoms at this time. Will continue these medications. Assessment & Plan (01/06/2022 1:15 PM EDT): Omeprazole refill sent Assessment & Plan (07/30/2019 2:36 PM EST): Will plan to taper off PPI starting next visit Resolved Problems Problem Noted Date Diagnosed Date Resolved Date Preop examination 10/11/2024 01/09/2025 Assessment & Plan (10/11/2024 11:23 AM EST): I have reviewed their medical records today in the office. No contraindications to this procedure identified at this time. I clear them for this procedure with a low cardiovascular risk. I will send this note to the provider as requested. Please call if there are any questions or concerns. Shortness of breath 10/10/2022 09/07/20 Assessment & Plan (09/06/2023 1:08 PM EST): She has occasional shortness of breath for which she uses an inhaler. Cardiac workup does not reveal any cardiac etiology for her shortness of breath. Assessment & Plan (11/28/2022 12:09 PM EST): Chronic exertional shortness of breath which started at least 1 year prior to initial pulmonary evaluation. She has a history of non-obstructive CAD on nitrate therapy. CTPA from 05/2022 (performed during hospitalization for ischemic colitis status post colectomy) was negative for PE, notable for pulmonary edema with associated moderate right and small to moderate left pleural effusions, consistent with volume overload following fluid resuscitation. Echo from 05/2022 with normal LVEF, mild to moderate mitral regurgitation. Cardiac stress test from 05/2022 negative for ischemia. She is a former smoker (around 20 pack-years, quit > 20 years prior to initial pulmonary evaluation). Her family history is notable for 3 siblings with asthma. No prior PFTs available for review. PFTs from 11/03/2022 were normal aside from a markedly impaired ERV and mildly impaired diffusion capacity which are likely secondary to body habitus +/- anemia. Chest x-ray from 11/03/2022 was clear, unremarkable, and demonstrated interval resolution to pleural effusions. Altogether, her shortness of breath seems less likely to be due to a pulmonary issue. She did not benefit from empiric initiation of albuterol MDI and given low suspicion for asthma, we discussed not pursuing empiric ICS or methacholine challenge testing. Possible contributors to her shortness of breath could include body habitus, deconditioning, anemia, CAD, mitral regurgitation. Previously, she did notice some improvement in her shortness of breath following initiation of Imdur. It is possible she could have some microvascular disease that could be contributing to her exertional dyspnea. Plan: -No additional pulmonary work-up is indicated at present -Has upcoming cardiology follow-up with Dr. Ulloa on 01/16/2023--I will be interested to see whether he feels Jodi might benefit from an increased dose of Imdur -Follow-up CBC to evaluate for any worsening of chronic anemia (ordered by PCP but not yet done) -Encourage exercise Assessment & Plan (11/09/2022 9:11 AM EST): She is being worked up by cardiology and is currently undergoing evaluation with pulmonology. Some of her recent PFT findings could be explained by anemia. She did have mild anemia this fall following surgery. We will recheck her blood count, iron and B12 level Assessment & Plan (10/12/2022 1:52 PM EST): Chronic exertional shortness of breath which started at least 1 year prior to initial pulmonary evaluation. She has a history of non-obstructive CAD on nitrate therapy. CTPA from 05/2022 (performed during hospitalization for ischemic colitis status post colectomy) was negative for PE, notable for pulmonary edema with associated moderate right and small to moderate left pleural effusions, consistent with volume overload following fluid resuscitation. Echo from 05/2022 with normal LVEF, mild to moderate mitral regurgitation. Cardiac stress test from 05/2022 negative for ischemia. She is a former smoker (around 20 pack-years, quit > 20 years prior to initial pulmonary evaluation). Her family history is notable for 3 siblings with asthma. No prior PFTs available for review. Altogether, her shortness of breath could be secondary to chronic obstructive lung disease which we will evaluate with PFTs. We will also obtain interval chest x- ray to evaluate for any evidence of persistent pleural effusions. Other possible contributors to her shortness of breath could include CAD, mitral regurgitation, mild anemia. Plan -Obtain PFTs -Empiric trial of albuterol MDI -Obtain interval chest x-ray to evaluate for persistent pleural effusions -Encourage exercise -Ongoing management of cardiac/vascular disease H. pylori infection 07/07/2022 11/09/19 Assessment & Plan (08/25/2022 12:40 PM EST): Completed tx. Sx improved. Scheduled for FU breath test through GI Assessment & Plan (07/07/2022 3:38 PM EDT): She says her manager of application development office called in treatment for her which she has not picked it up yet. Hypoxia 05/31/2022 06/04/2022 Assessment & Plan (06/03/2022 8:14 AM EDT): Developed hypoxia on postoperative day #1, with rise in oxygen requirement to [address] angiography showed no evidence of PE but did demonstrate pulmonary edema with bilateral pleural effusions, moderate on the right and small to moderate on the left. Lower lobe atelectasis noted. Echo 06/01 showed able appearance from prior, EF 70- 75% and no significant valvular abnormalities. Hypoxic respiratory failure secondary to fluid overload and atelectasis. Suspect element of diastolic dysfunction combined with fluid resuscitation contributing to CHF. She has responded nicely to diuretics, received 3 doses of IV Lasix. I suspect she will wean off oxygen today -- She does not require additional diuretics at this point --Wean O2 as tolerated. Keep saturations greater than 90% --Encourage I-S (she is using) and frequent mobilization --A.m. labs pending. Replace K+ if low today Pneumatosis of intestines 05/30/2022 Assessment & Plan (06/03/2022 8:10 AM EDT): She is postop day #4 status post laparoscopic right colectomy secondary to ischemia of the ascending colon Progressing appropriately, bowel function is normalizing -- If continued improvement, likely trial of solids soon -- Ceftriaxone/Flagyl per surgery Cardiac murmur, unspecified 10/13/2021 01/06/2022 Assessment & Plan (10/13/2021 5:24 PM EST): I dont recall hearing this murmur before & dont see it in cardiology notes. Echo ordered. Right wrist pain 10/30/2020 08/25/2022 Assessment & Plan (10/30/2020 11:36 AM EST): Continue Cymbalta 40 mg once daily. Muscle rubs with lidocaine, heating pad for additional joint pain relief. Protrusion of lumbar intervertebral disc 03/31/2020 08/25/2022 Assessment & Plan (10/30/2020 11:34 AM EST): Trial of Amitriptyline 10 mg PO qhs. Patient educated medication can help with bony joint back pain. Patient has failed Meloxicam, Nabumetone, and Tylenol Arthritis. Right ankle pain 03/31/2020 01/09/2025 Assessment & Plan (10/30/2020 11:37 AM EST): Ankles stable on exam today. Continue Cymbalta 40 mg once daily. Lack of libido 02/26/2020 10/13/2021 Sleep disturbances 11/28/2019 Assessment & Plan (12/04/2019 8:53 PM EDT): Trazodone helps w sleep onset. She wakes up to urinate. recommend limiting fluid after 5 pm. She is concerned trazodone makes her too sleepy during day & aggravates daytime dizziness. I suggest she hold it for a week to see if those sx resolve. If so we can decrease her dose or try something else Post hysterectomy menopause syndrome 11/07/2019 10/13/2021 Submucous and subserous leiomyoma of uterus 10/31/2019 11/26/2019 Overview (10/31/2019): TVH and BSO performed 10/31/2019 Fibroid 10/31/2019 11/26/2019 Stenosis of left carotid artery 08/28/2019 09/24/2020 Overview (12/08/2019): Per Cardiology notes Carotid UL 08/2018 no significant atherosclerotic disease Assessment & Plan (12/04/2019 8:51 PM EDT): If this has worsened could be contributing to dizziness. Will request records of her most recent UL. Submucous uterine fibroid 08/20/2019 Perimenopause 07/30/2019 08/20/2019 Assessment & Plan (07/30/2019 2:33 PM EST): Pt will stop seeing windows security analyst & go see natural science manager deer farm worker. She had a lot of labs done already & will drop them off Encounters Date Type Department Care Team Description 08/29/2025 Refill [facility] [address], [place] [id number] Cesar Petersen PA-C, LASHONDA Medication Refill 07/10/2025 Refill [facility] [address] [place], [place] [id number] Laurent Harris MD Medication Refill from Last 3 Months Immunizations Immunization Administration Dates Next Due COVID-19 (Pre-07/17) Pearl Vaccine, [id number], P F 12/25/2020 Hepatitis B Adult 08[birth year]28[birth year]1995 Influenza Quadrivalent Preservative Free IM 1209/2021,06/28/2021 Influenza Recombinant Candace valent Preservative Free IM 07/30/2019 Pneumococcal conjugate PCV20 08/25/2022 Pneumococcal polysaccharide PPSV23 08/28/2019 Td (adult),2 Lf Tetanus Toxoid, PF, Adsorbed Tdap 09/24/2020 Zoster recombinant 08/28/2020,09/20/2019 Family History Medical History Relation Comments Alcohol abuse Brother 1 Cirrhosis Brother 1 Diabetes Brother 2 Kidney cancer Brother 2 Mets to bone Pancreatitis Brother 2 Drug use disorder Brother 3 Heart attack Brother 3 Diabetes type I Brother 4 Stroke Brother 4 x 2, first in hi s 40s. No Known Problems Daughter Heart attack Father 70s Coronary artery disease Mother Hypertension Mother Peripheral vascular disease Mother Breast cancer Sister 1 Carotid stenosis Sister 1 Coronary artery disease Sister 1 Alcohol abuse Sister 2 Peripheral vascular disease Sister 2 Relation Status Comments Brother 1 Brother 2 Alive Brother 3 Brother 4 Alive Daughter Alive Father Mother Sister 1 Alive Sister 2 Alive Social History Tobacco Use Types Packs/Day Years Used Date Smoking Tobacco: Former Cigarettes 1 20 1 09/29/1980 - 07/30/2001 Smokeless Tobacco: Never Tobacco Cessation:Counseling Given: Not Answered Comments:started age 17 1 PPD Alcohol Use Standard Drinks/Week Comments Not Currently [...] file Not on file Not on file Last Filed Vital Signs Vital Sign Reading Time Taken Comments Blood Pressure 126/60 03/20/2025 10:44 AM EDT Pulse 67 03/18/2025 11:56 AM EDT Temperature 36.3 C (97.3 F) 03/18/2025 11:56 AM EDT Respiratory Rate 16 07/24/2023 8:02 AM EDT Oxygen Saturation 98% 03/18/2025 11:56 AM EDT Inhaled Oxygen Concentration - - Weight 64.6 kg (142 lb 6.4 oz) 03/18/2025 11:56 AM EDT Height 149.9 cm (4' 11 ) 03/18/2025 11:56 AM EDT Body Mass Index 28.76 03/18/2025 11:56 AM EDT Plan of Treatment Health Maintenance Due Date Last Done Comments COLOGUARD 2006 FIT TEST 2006 FOBT 2006 SIGMOIDOSCOPY 2006 VIRTUAL COLONOSCOPY 2006 RSV VACCINE (1 - Risk 50-74 years 1-dose series) 2011 DEPRESSION SCREENING 11/14/2024 11/14/2023, 11/14/19 24 CREATININE LEVEL 01/02/2025 01/03/2024, , 09/06/2023, Additional history exists POTASSIUM LEVEL 01/02/2025 01/03/2024, 0311/2023, 09/06/2023, Additional history exists INFLUENZA VACCINE (#1) 2025 , 06/28/2021, 07/30/2019 COVID-19 VACCINE ( season) 2025 11/13/2021, 12/25/2020 BLOOD PRESSURE 09/17/2025 03/18/2025 MAMMOGRAM 02/05/2027 02/05/2025, 1203/2023, 02/08/2021, Additional history exists SCREENING FOR DIABETES 04/24/2027 4, 01/03/2024, 04/12/2019 Adult Td,Tdap Booster 09/24/2030 09/24/2020, 010 COLONOSCOPY 07/24/2033 07/24/2023, 07/26/2013 COLORECTAL CANCER SCREENING 07/24/2033 HIV ONE-TIME SCREENING (18-65 YEARS) Completed 08/28/2009 HEPATITIS C SCREENING Completed 09/12/2019 ZOSTER VACCINES Completed 08/28/2020, 09/20/2019 PNEUMOCOCCAL VACCINES (50+ years) Completed 08/25/2022, 08/28/2019 SMOKING STATUS SCREENING (Once After 26 Yrs) Completed 03/18/2025 HEPATITIS A VACCINES Aged Out No long er eligible based on patient's age to complete this topic HIB VACCINES Aged Out No longer eligi ble based on patient's age to complete this topic MENINGOCOCCAL VACCINES (ACWY) Aged Out No longer eligible based on patient's age to complete this topic MENINGOCOCCAL VACCINES (B) Aged Out N o longer eligible based on patient's age to complete this topic Medical Devices Implanted Type Area Buildings And Grounds Superintendent Device Identifier Shelf Expiration Date Model / Serial / Lot Pin Pin Left: Shoulder Screw Screw Left: Foot Procedures Procedure Name Priority Date/Time Associated Diagnosis Comments MAMMOGRAPHY Routine 02/05/2025 10:52 AM EDT COMPREHENSIVE METABOLIC PANEL (CMP) Routine 01/03/2024 9:48 AM EDT Change in bowel habits Abdominal pain, epigastric Abdominal pain, right upper quadrant ENDOSCOPY, COLON 07/24/2023 7:14 AM EDT HEPATITIS C ANTIBODY, QUALITATIVE Routine 09/12/2019 2:19 PM EST Need for hepatitis C screening test OUTSIDE GLUCOSE FASTING Routine 04/12/2019 OUTSIDE HIV Routine 08/28/2009 from Last 3 Months or Most Recently Relevant to Health Maintenance Results * MAMMOGRAPHY FOR RESULT ENTRY ONLY (02/05/2025 10:52 AM EDT) us Historical Provider MD HEALTH MAINTENANCE Final Result * (ABNORMAL) Comprehensive metabolic panel (01/03/2024 9:48 AM EDT) SODIUM 140 133 - 146 mmol/L [facility] POTASSIUM 4.7 3.3 - 5.1 mmol/L [facility] CHLORIDE 102 96 - 108 mmol/L [facility] CO2 26 21 - 35 mmol/L [facility] BUN 15 6 - 19 mg/dL [facility] CREATININE 0.70 0.5 - 1.5 mg/dL [facility] GLUCOSE 110(H) 70 - 99 mg/dL [facility] ALBUMIN 4.9(H) 3.9 - 4.8 g/dL [facility] TOTAL PROTEIN 7.9 6.5 - 8.0 g/dL [facility] CALCIUM 10.0 8.4 - 10.3 mg/dL [facility] ALKALINE PHOSPHATASE 125(H) 39 - 117 U/L [facility] TOTAL BILIRUBIN 0.3 0.0 - 1.2 mg/dL [facility] AST 28 0 - 37 U/L [facility] ALT 21 0 - 40 U/L [facility] GLOBULIN 3.0 1 - 4.8 g/dL [facility] EGFR 98 >59 mL/min/1.7 3m2 [facility] Comment:Estimated glomerular filtration rate calculated using the CKD-EPI refit equation. ANION GAP 17 10 - 20 mmol/L [facility] Blood 01/03/2024 9:48 AM EDT 01/03/2024 10:01 AM EDT us Milagros Zayas NP LAB BLOOD BKR ORDERABLES Final Result [address] [address] * ENDOSCOPY, COLON (07/24/2023 7:14 AM EDT) Narrative Transcriptions Kiko Alves MD - 07/24/2023 7:14 AM EDT [facility] Patient Name: Jodimariana Palafox Attending MD:: KIKO ALVES MD, Procedure Date: 07/24/2023 7:14 AM Date of : 1960 Age: 62 Admit Type: Outpatient Gender: Female Room: [place] [address] Referring MD: Chio Hill Exam Type: Colonoscopy Indications: Screening for colorectal malignant neoplasm, Incidental change in bowel habits noted, s/p right colectomy for ischemic colitis 05/2022 Medications: Monitored Anesthesia Care Procedure: Informed consent was obtained from the patientafter discussion of the indications, limitations, alternatives, benefits, and risks of the procedure. Risks specifically discussed include but are not limited to medication reactions, missed lesions, bleeding, perforation, or the need for emergent surgery. Throughout the procedure, the patient's blood pressure, pulse, end-tidal CO2, and oxygensaturations were monitored continuously. The Olympus pediatric variable [id number] #6 was introduced through the anus and advanced tothe ileocolonic anastomosis. The colonoscopy wasperformed without difficulty. The patient tolerated the procedure fairly well. The quality of the bowel preparation was excellent. The terminal ileum was photographed. Complications: No immediate complications. Estimated blood loss:None. Findings: The perianal and digital rectal examinations were normal. Pertinent negatives include normalsphincter tone. There was evidence of a prior gcn-vh-irplbceg-colonic anastomosis in the cecum. This was patent and was characterized by erosion and friable mucosa. The anastomosis was traversed. Retroflexion in the right colon was performed. The exam was otherwise without abnormality ondirect and retroflexion views. Impression: - Patent end-to-side ileo-colonic anastomosis, characterized by erosion and friable mucosa. - The examination was otherwise normal on directand retroflexion views. - No specimens collected. Recommendation: - Reassurance - Repeat colonoscopy in 10 years for screening purposes. - High fiber diet. KIKO ALVES MD 07/24/2023 7:48:55 AM This report has been signed electronically. Number of Addenda: 0 Note Initiated On: 07/24/2023 7:14 AM Procedure Code(s): --- Professional --- 64279, Colonoscopy, flexible; diagnostic, including collection of specimen(s) by brushing or washing, when performed (separateprocedure) --- Technical --- 57852, Colonoscopy, flexible; diagnostic, including collection of specimen(s) by brushing or washing, when performed (separateprocedure) Diagnosis Code(s): --- Professional --- Z12.11, Encounter for screening for malignantneoplasm of colon Z98.0, Intestinal bypass and anastomosis status --- Technical --- Z12.11, Encounter for screening for malignantneoplasm of colon Z98.0, Intestinal bypass and anastomosis status CPT copyright 2021 [employer]. All rights reserved. The codes documented in this report are preliminary and upon ssis etl developer reviewmay be revised to meet current compliance requirements. Procedure Date: 07/24/2023 7:14:[address] [place] [address] [employer] [facility] PROCEDURE ORDERABLES Fi nal Result * Hepatitis C antibody, qualitative (09/12/2019 2:19 PM EST) HCV NON-REACTIV E NON-REACTI VE [facility] Blood 09/12/2019 2:19 PM EST 09/12/2019 2:26 PM EST [employer] [facility] LAB BLOOD BKR ORDERABLES F inal Result [facility] [address] [place] [address] * (ABNORMAL) Outside Glucose,Fasting (04/12/2019) Glucose, fasting - External 106(A) 65 - 99 mg/dL us Historical Provider MD LAB BLOOD ORDERABLES Doreen l Result * OUTSIDE HIV TEST (08/28/2009) HIV - External Neg us Historical Provider MD LAB BLOOD ORDERABLES Doreen l Result from Last 3 Months or Most Recently Relevant to Health Maintenance Insurance OUT OF STATE PPO [place] OUT OF STATE PPO [place]UE [place]OSS OUT OF STATE PPO BLUE CROSS OUT OF STATE PPO BLUE CROSS OUT OF STATE PPO [place] [address] DENTAL Advance Directives For more information, please contact: [phone] (9AM - 5PM [facility], Monday-Monday) Documents on File Type Date Recorded Patient Mallet And Die Cutter Expl anation Healthcare Proxy 11/04/2019 12:48 PM * Full Code (Latest Code Status on File) Date Activated Date Inactivated Comments 05/30/2022 9:03 AM Question Answer Comments Code Status Confirmed With: Patient * Full Code (Presumed) Date Activated Date Inactivated Comments 10/31/2019 11:10 AM 11/01/2019 4:19 PM * Full Code (Presumed) Date Activated Date Inactivated Comments 10/31/2019 6:55 AM 10/31/2019 11:10 AM Care Teams Contract Administration Coordinator Relationship Specialty Start Date End Date Juan Candice, CNP [address] [place] [address], [address] [place] [address] [email or web address] PCP - General Nurse Practitioner 09/07/23 Additional Source Comments The information contained in this document represents components of the legal health record. It is not the complete legal health record.[facility]
--- OUTSIDE RECORDS SUMMARY | 2025-09-07 05:37 | XMS_ITS | Encounter Summary ---
Author Organization [facility] Address [address] [place] [address] Phone Care Team Providers Care Clammer Name Role Phone Chio Hill Olga [employer] Primary Care Provider [phone] Juan Candice [facility] Primary Care Provider Juan Candice [facility] Primary Care Provider Candice Martinez [facility] Primary Care Provider Encounter Details Date Type Department Care Team (Latest Contact Info) Description 07/19/2023 Transcribe Orders Virtual Department [address] [place] [address] Milagros Zayas NP [address] [place] [address] RUQ abdominal pain (Primary Dx); Nausea Social History Tobacco Use Types Packs/Day [...] * US ABDOMEN LIMITED RIGHT UPPER QUADRANT (08/03/2023 7:29 AM EST) Anatomical Region Laterality Modality Abdomen Ultrasound 08/03/2023 7:47 PM EST Impressions 08/03/2023 7:47 PM EST No acute abnormality. Unchanged 3 mm gallbladder polyp. Narrative 08/03/2023 7:47 PM EST US ABDOMEN LIMITED RIGHT UPPER QUADRANT TECHNIQUE: US Abdominal limited right upper quadrant. COMPARISON: Right upper quadrant ultrasound 09/09/2022 FINDINGS: Liver: Normal. No focal lesions. Main Portal Vein: Patent with normal direction of flow. Gallbladder: 3 mm gallbladder polyp again noted. No gallstones or gallbladder wall thickening. Gonzales's Sign: Negative. Biliary: Normal. No intrahepatic or extrahepatic biliary ductal dilatation. The common bile duct measures 6 mm. Procedure Note Andrea Beebe MD, LASHONDA - 08/03/2023 US ABDOMEN LIMITED RIGHT UPPER QUADRANT TECHNIQUE: US Abdominal limited right upper quadrant. COMPARISON: Right upper quadrant ultrasound 09/09/2022 FINDINGS: Liver: Normal. No focal lesions. Main Portal Vein: Patent with normal direction of flow. Gallbladder: 3 mm gallbladder polyp again noted. No gallstones orgallbladder wall thickening. Gonzales's Sign: Negative. Biliary: Normal. No intrahepatic or extrahepatic biliary ductaldilatation. The common bile duct measures 6 mm. IMPRESSION: No acute abnormality. Unchanged 3 mm gallbladder polyp. us Milagros Polina Zayas FENDER MECHANIC IMG US ABDOMEN Final Res ult documented in this encounter Visit Diagnoses Diagnosis RUQ abdominal pain- Primary Abdominal pain, right upper quadrant Nausea Nausea alone RUQ abdominal pain Abdominal pain, right upper quadrant Nausea Nausea alone documented in this encounter Additional Health Concerns Assessment Noted Time PHQ-9 Depression Total Score: 24 023 1:08 PM EDT PHQ-2 Depression Total Score: 6 05/31/20 23 1:08 PM EDT documented as of this encounter Care Teams Clammer Relationship Specialty Start Date End Date Chio Hill CNP 15 [facility], 2nd [place] [address] PCP - General Family Medicine 08/27/19 07/31/23 Candice Martinez CNP [address] [place] [address] PCP - General Nurse Practitioner 08/01/23 09/05/23 Candice Martinez CNP [address] [place] [address] PCP - General Nurse Practitioner 09/06/23 09/06/23 Candice Martinez CNP [address] [place] [address] 7 [place] [address] PCP - General Nurse Practitioner 09/07/23 documented as of this encounter Additional Source Comments The information contained in this document represents components of the legal health record. It is not the complete legal health record.[facility]
--- OUTSIDE RECORDS SUMMARY | 2025-09-07 05:37 | XMS_ITS | Encounter Summary ---
Author Organization [facility] Address [facility] [employer] [address] [address] Phone Care Team Providers Care Attacher Name Role Phone Chio Hillz [facility] Primary Care Provider [phone] Juan Candice [facility] Primary Care Provider Juan, Candice [facility] Primary Care Provider Juan Candice [facility] Primary Care Provider Encounter Details Date Type Department Care Team (Late st Contact Info) Description 07/24/2023 Procedure Pass [facility] Endoscopy Admitting Dept Virtual Department [address] [place] [address] Social History Tobacco Use Types Packs/Day Years [...] 7:20 AM EST Sexual Orientation Lesbian or Ptitman 11/21/2019 7: 20 AM EST Occupation Industry [...] documented as of this encounter Care Teams Attacher Relationship Specialty Start Date End Date Chio Hill CNP 15 [facility], 2nd [place] [address] PCP - General Family Medicine 08/27/19 07/31/23 Candice Martinez CNP 234 [facility], [facility] 7 [place] [address] PCP - General Nurse Practitioner 08/01/23 09/05/23 Candice Martinez CNP 234 [facility] 7 [place] [address] PCP - General Nurse Practitioner 09/06/23 09/06/23 Candice Martinez CNP 234 [facility], [facility] 7 [place] [address] PCP - General Nurse Practitioner 09/07/23 documented as of this encounter Additional Source Comments The information contained in this document represents components of the legal health record. It is not the complete legal health record.[facility]
--- OUTSIDE RECORDS SUMMARY | 2025-09-07 05:37 | XMS_ITS | Encounter Summary ---
Author Organization [facility] Address [address] [place] [address] Phone Care Team Providers Care Psychiatric Np Name Role Phone Chio Hill Olga [facility] Primary Care Provider [phone] Veronica Everett RN Unavailable [phone] Candice Martinez [facility] Primary Care Provider Candice Martinez [facility] Primary Care Provider Candice Martinez [facility] Primary Care Provider Encounter Details Date Type Department Care Team (Late st Contact Info) Description 10/31/2019 Procedure Pass OR Admitting Dept - [facility] Department [address] [place] [address] Social History Tobacco Use Types Packs/Day Years [...] Time PHQ-2 Depression Total Score: 0 07/30/20 1:34 PM EST documented as of this encounter Care Teams Psychiatric Np Relationship Specialty Start Date End Date SergioChioDICKSON cox 15 [facility], 2nd [place] [address] PCP - General Family Medicine 08/27/19 07/31/23 Candice Martinez CNP [address] [address] PCP - General Nurse Practitioner 08/01/23 09/05/23 Candice Martinez CNP [address] [address] PCP - General Nurse Practitioner 09/06/23 09/06/23 Candice Martinez CNP [address] [place] [address] PCP - General Nurse Practitioner 09/07/23 Veronica Everett, RN [address] [place] [address] PHCM Fishing InstructorPediatric Physical Therapy Assistant 02/23/23 03/21/23 documented as of this encounter Additional Source Comments The information contained in this document represents components of the legal health record. It is not the complete legal health record.[facility]
--- OUTSIDE RECORDS SUMMARY | 2025-09-07 05:38 | XMS_ITS | Encounter Summary ---
Author Organization [facility] Address [address] [place] [address] Phone Care Team Providers Care Transistor Tester Name Role Phone Chio Hill Olga [facility] Primary Care Provider [phone] Veronica Everett RN Unavailable [phone] Candice Martinez [facility] Primary Care Provider [phone] Candice Martinez [facility] Primary Care Provider Candice Martinez [facility] Primary Care Provider Encounter Details Date Type Department Care Team (Late st Contact Info) Description 05/31/2022 Procedure Pass [facility] Echo [facility] [address] [place] [address] Social History Tobacco Use Types Packs/Day Years [...] documented as of this encounter Care Teams Transistor Tester Relationship Specialty Start Date End Date Chio HillDICKSON 15 [facility], 2nd [place] [address] PCP - General Family Medicine 08/27/19 07/31/23 Candice Martinez CNP 234 [facility] 7 [place] [address] PCP - General Nurse Practitioner 08/01/23 09/05/23 Candice Martinez CNP 234 [facility] 7 [place] [address] PCP - General Nurse Practitioner 09/06/23 09/06/23 Candice Martinez CNP 234 [facility] 7 [place] [address] PCP - General Nurse Practitioner 09/07/23 Veronica Everett, RN [address] [place] [address] PHCM Director HematologySenior Underwriter 02/23/23 03/21/23 documented as of this encounter Additional Source Comments The information contained in this document represents components of the legal health record. It is not the complete legal health record.[facility]
--- OUTSIDE RECORDS SUMMARY | 2025-09-07 05:38 | XMS_ITS | Encounter Summary ---
Author Organization [facility] Address Critical access hospital [facility] [address] [address] Phone Care Team Providers Care Cathead Operator Name Role Phone Chio Hill Olga [facility] Primary Care Provider [phone] Veronica Everett RN Unavailable [phone] Candice Martinez [facility] Primary Care Provider Candice Martinez [facility] Primary Care Provider Candice Martinez [facility] Primary Care Provider Encounter Details Date Type Department Care Team (Late st Contact Info) Description 11/24/2020 Ancillary Orders [facility],Outside Imaging [address] [place], [place] [id number] System, Provider Not In, [place] [address] Social History Tobacco Use Types Packs/Day Years [...] documented as of this encounter Results * Mammogram Outside (No Interpretation) (05/08/2019 12:00 AM EDT) Narrative SYSTEMGENERATED, DOCUMENTATION - 11/24/2020 4:06 PM EST This study is for PACS storage only and not for interpretation. us Provider Not In System PhD IMG OUTSIDE IMAGING W /OUT INTERPRETATION Final Result * Mammogram Outside (No Interpretation) (04/28/2017 12:00 AM EDT) Narrative SYSTEMGENERATED, DOCUMENTATION - 11/24/2020 4:07 PM EST This study is for PACS storage only and not for interpretation. us Provider Not In System PhD IMG OUTSIDE IMAGING W /OUT INTERPRETATION Final Result * Mammogram Outside (No Interpretation) (02/16/2016 12:00 AM EDT) Narrative SYSTEMGENERATED, DOCUMENTATION - 11/24/2020 4:06 PM EST This study is for PACS storage only and not for interpretation. us Provider Not In System PhD IMG OUTSIDE IMAGING W /OUT INTERPRETATION Final Result documented in this encounter Visit Diagnoses Not on filedocumented in this encounter Additional Health Concerns Assessment Noted Time PHQ-2 Depression Total Score: 0 09/24/20 20 8:18 AM EST documented as of this encounter Care Teams Cathead Operator Relationship Specialty Start Date End Date Chio Hill CNP [address] [place] [address], 2nd [place] [address] PCP - General Family Medicine 08/27/19 07/31/23 Candice Martinez CNP [address] [place] [address], [address] [place] [address] PCP - General Nurse Practitioner 08/01/23 09/05/23 Candice Martinez CNP 234 [facility] 7 [place] [address] [email or web address] PCP - General Nurse Practitioner 09/06/23 09/06/23 Candice Martinez CNP 234 [facility] 7 [place] [address] [email or web address] PCP - General Nurse Practitioner 09/07/23 Veronica Everett, RN [address] [place] [address] [email or web address] PHCM Size MakerDental Claims Processor 02/23/23 03/21/23 documented as of this encounter Additional Source Comments The information contained in this document represents components of the legal health record. It is not the complete legal health record.[facility]
--- OUTSIDE RECORDS SUMMARY | 2025-09-07 05:38 | XMS_ITS | Encounter Summary ---
Author Organization [facility] Address [facility] [address] [address] Phone Care Team Providers Care Ski Edge Painter Name Role Phone Chio Hill Olga [facility] Primary Care Provider [phone] Veronica Everett RN Unavailable [phone] Candice Martinez [facility] Primary Care Provider Candice Martinez [facility] Primary Care Provider Candice Martinez [facility] Primary Care Provider Encounter Details Date Type Department Care Team (Late st Contact Info) Description 05/31/2022 Procedure Pass [facility], Ct Scan - [address] [address] Social History Tobacco Use Types Packs/Day Years [...] documented as of this encounter Care Teams Ski Edge Painter Relationship Specialty Start Date End Date Sergio Chio DICKSON Espinoza 15 [facility], 2nd [place] [address] PCP - General Family Medicine 08/27/19 07/31/23 Candice Martinez CNP [address] [place] [address] PCP - General Nurse Practitioner 08/01/23 09/05/23 Candice Martinez CNP [address] [place] [address] PCP - General Nurse Practitioner 09/06/23 09/06/23 Candice Martinez CNP [address] [place] [address] PCP - General Nurse Practitioner 09/07/23 Veronica Everett, RN [address] [place] [address] PHCM Molder BenchReach Lift Truck Driver 02/23/23 03/21/23 documented as of this encounter Additional Source Comments The information contained in this document represents components of the legal health record. It is not the complete legal health record.[facility]
--- OUTSIDE RECORDS SUMMARY | 2025-09-07 05:38 | XMS_ITS | Encounter Summary ---
Author Organization Located Within [facility] Address [address] [place] [address] Phone Care Team Providers Care Gmat Instructor Name Role Phone Chio Hill Olga [facility] Primary Care Provider [phone] Veronica Everett RN Unavailable [phone] Candice Martinez [facility] Primary Care Provider Candice Martinez [facility] Primary Care Provider Candice Martinez [facility] Primary Care Provider [phone] Encounter Details Date Type Department Care Team (Latest Contact Info) Description 08/25/2022 Transcribe Orders Virtual Department [address] [place] [address] Milagros Zayas NP 10 [place] [address] RUQ pain (Primary Dx) Social History Tobacco Use Types Packs/Day Years [...] * US ABDOMEN LIMITED RIGHT UPPER QUADRANT (09/09/2022 8:10 AM EST) Anatomical Region Laterality Modality Abdomen Ultrasound 09/09/2022 11:1 3 AM EST Impressions 09/09/2022 11:21 AM EST 1. 3 mm non-shadowing echogenic focus adjacent to the gallbladder wall which may reflect a small polyp versus adherent stone. No further imaging follow-up is recommended. (Ref: Radiology 2021; 305:277-289) Narrative 09/09/2022 11:21 AM EST US ABDOMEN LIMITED RIGHT UPPER QUADRANT TECHNIQUE: US Abdominal limited right upper quadrant. COMPARISON: MRA abdomen 07/01/[address] abdomen 05/29/2022 FINDINGS: Liver: Normal echogenicity. No focal lesions. Main Portal Vein: Patent with normal direction of flow. Gallbladder: There is a 3 mm non-shadowing echogenic focus adjacent to the gallbladder wall which may reflect a small polyp versus adherent stone. No gallbladder wall thickening or pericholecystic fluid. Biliary: No intrahepatic or extrahepatic biliary ductal dilatation. The common bile duct measures 5 mm. Right Kidney: No stones or hydronephrosis. Procedure Note Carin Dick MD - 09/09/2022 US ABDOMEN LIMITED RIGHT UPPER QUADRANT TECHNIQUE: US Abdominal limited right upper quadrant. COMPARISON: MRA abdomen 07/01/[address] abdomen 05/29/2022 FINDINGS: Liver: Normal echogenicity. No focal lesions. Main Portal Vein: Patent with normal direction of flow. Gallbladder: There is a 3 mm non-shadowing echogenic focus adjacent to thegallbladder wall which may reflect a small polyp versus adherent stone. Nogallbladder wall thickening or pericholecystic fluid. Biliary: No intrahepatic or extrahepatic biliary ductal dilatation. The common bile duct measures 5 mm. Right Kidney: No stones or hydronephrosis. IMPRESSION: 1. 3 mm non-shadowing echogenic focus adjacent to the gallbladder wallwhich may reflect a small polyp versus adherent stone. No further imagingfollow-up is recommended. (Ref: Radiology 2021; 305:277-289) us Milagros Fish Chana DOLLY PUSHER IMG US ABDOMEN Final Res ult documented in this encounter Visit Diagnoses Diagnosis RUQ pain- Primary Abdominal pain, right upper quadrant RUQ pain Abdominal pain, right upper quadrant documented in this encounter Additional Health Concerns Assessment Noted Time PHQ-2 Depression Total Score: 0 10/13/19 22 4:05 PM EST documented as of this encounter Care Teams Gmat Instructor Relationship Specialty Start Date End Date Chio Hill CNP [address] [facility], 2nd [place] [address] PCP - General Family Medicine 08/27/19 07/31/23 Candice Martinez CNP [address] [place] [address] PCP - General Nurse Practitioner 08/01/23 09/05/23 Candice Martinez CNP [address] [facility] 7 [place] [address] PCP - General Nurse Practitioner 09/06/23 09/06/23 Candice Martinez CNP [address] [facility] 7 [place] [address] PCP - General Nurse Practitioner 09/07/23 Veronica Everett, RN 10 [place] [address] PHCM Relationship AdvisorSurvey Researcher 02/23/23 03/21/23 documented as of this encounter Additional Source Comments The information contained in this document represents components of the legal health record. It is not the complete legal health record.Located Within [facility]
--- OUTSIDE RECORDS SUMMARY | 2025-09-07 05:38 | XMS_ITS | Encounter Summary ---
Author Organization [facility] Address [address] [place] [address] Phone Care Team Providers Care Tunnel Inspector Name Role Phone Chio Hill Olga [facility] Primary Care Provider [phone] Veronica Everett RN Unavailable Candice Martinez [facility] Primary Care Provider Candice Martinez [facility] Primary Care Provider Candice Martinez [facility] Primary Care Provider Encounter Details Date Type Department Care Team (Late st Contact Info) Description 09/24/2020 Procedure Pass [facility], [address] [address] Social History Tobacco Use Types Packs/Day Years [...] documented as of this encounter Care Teams Tunnel Inspector Relationship Specialty Start Date End Date Sergio Chio DICKSON Espinoza [address] [facility], 2nd [place] [address] PCP - General Family Medicine 08/27/19 07/31/23 Candice Martinez CNP [address] [place] [address] PCP - General Nurse Practitioner 08/01/23 09/05/23 Candice Martinez CNP [address] [place] [address] PCP - General Nurse Practitioner 09/06/23 09/06/23 Candice Martinez CNP [address] [place] [address] PCP - General Nurse Practitioner 09/07/23 Veronica Everett, RN [address] [place] [address] PHCM Cage ManagerWork Car Operator 02/23/23 03/21/23 documented as of this encounter Additional Source Comments The information contained in this document represents components of the legal health record. It is not the complete legal health record.[facility]
--- OUTSIDE RECORDS SUMMARY | 2025-09-07 05:38 | XMS_ITS | Encounter Summary ---
Author Organization [facility] Address [address] [place] [address] Phone Care Team Providers Care Bowling Teacher Name Role Phone Candice Martinez DICKSON Primary Care Provider [phone] Reason for Referral * Outpatient Procedure - Closed Specialty Diagnoses / Procedures Referred By Irvin delong Referred To Contact Radiology Diagnoses Abdominal pain, unspecified abdominal location Procedures NM Cholescintigraphy without Pharmacological Intervention Milagros Zayas NP 10 [place] [address] Phone: tel: fax: Referral ID Status Reason Start Date Expiration Date Visits Re quested Visits Authorized [id number] Closed 01/12/2024 01/11/2025 1 1 Encounter Details Date Type Department Care Team (Latest Contact Info) Description 01/12/2024 Transcribe Orders Virtual Department 30 [place] [address] Milagros Zayas NP 10 [place] [address] Abdominal pain, unspecified abdominal location (Primary Dx) Social History Tobacco Use Types [...] documented as of this encounter Results * NM Cholescintigraphy without Pharmacological Intervention (01/19/2024 10:23 AM EDT) Anatomical Region Laterality Modality Abdomen, Biliary Nuclear Medicin e 01/19/2024 11:2 5 AM EDT Impressions 01/19/2024 11:31 AM EDT No evidence of cystic duct obstruction. Narrative 01/19/2024 11:31 AM EDT NM CHOLESCINTIGRAPHY WITHOUT PHARMACOLOGICAL INTERVENTION Radionuclide Hepatobiliary scan: COMPARISON: 01/04/2024 TECHNIQUE: 5.1 mCi technetium 99m mebrofenin was injected. Continuous imaging of the abdomen was performed for 60 minutes with additional 75, 90, and 120 minutes images obtained. FINDINGS: Following administration of radiopharmaceutical an anterior radionuclide angiogram of the upper abdomen was obtained revealing prompt and grossly physiologic hepatic perfusion. Sequential 3 minute static images disclose prompt uptake of tracer by the hepatic parenchyma without gross morphologic abnormality apparent. Biliary tree activity is visualized by 12-15 minutes and gallbladder activity by 15-18 minutes. There is adequate washout of residual tracer from the hepatic parenchyma with time. Faint visualization of the bowel following water ingestion at 2 hours does not disclose overt bile reflux. Procedure Note Trace Wells MD - 01/19/2024 NM CHOLESCINTIGRAPHY WITHOUT PHARMACOLOGICAL INTERVENTION Radionuclide Hepatobiliary scan: COMPARISON: 01/04/2024 TECHNIQUE: 5.1 mCi technetium 99m mebrofenin was injected. Continuous imaging of theabdomen was performed for 60 minutes with additional 75, 90, and 120minutes images obtained. FINDINGS: Following administration of radiopharmaceutical an anterior radionuclideangiogram of the upper abdomen was obtained revealing prompt and grosslyphysiologic hepatic perfusion. Sequential 3 minute static images discloseprompt uptake of tracer by the hepatic parenchyma without grossmorphologic abnormality apparent. Biliary tree activity is visualized by12-15 minutes and gallbladder activity by 15-18 minutes. There is adequatewashout of residual tracer from the hepatic parenchyma with time. Faintvisualization of the bowel following water ingestion at 2 hours does notdisclose overt bile reflux. IMPRESSION: No evidence of cystic duct obstruction. Milagros Zayas SEXUAL HEALTH PHYSICIAN IM NM ABDOMEN Final Res ult documented in this encounter Visit Diagnoses Diagnosis Abdominal pain, unspecified abdominal location- Primary Abdominal pain, unspecified abdominal location documented in this encounter Additional Health Concerns Assessment Noted Time PHQ-9 Depression Total Score: 0 11/14/19 24 1:31 PM EST PHQ-2 Depression Total Score: 0 11/14/19 1:31 PM EST documented as of this encounter Care Teams Bowling Teacher Relationship Specialty Start Date End Date Candice Martinez CNP [address] [place] [address], [address] [place] [address] [email or web address] PCP - General Nurse Practitioner 09/07/23 documented as of this encounter Additional Source Comments The information contained in this document represents components of the legal health record. It is not the complete legal health record.[facility]
--- OUTSIDE RECORDS SUMMARY | 2025-09-07 05:38 | XMS_ITS | Data Portability ---
Author Organization [facility] Address [address] [facility] [address] [place] [address] Care Team Providers Care Lecturer In Computer Science Name Role Phone THOMAS HERNANDEZ Primary Care Provider YOUSUF FERNANDEZ Referring Provider [phone] Assessment Encounter Date Assessment Date Assessment LastModified [...] booked for the same. She needs a freight delivery driver on the day of the procedure. [...] booked for the same. She needs a freight delivery driver on the day of the procedure. I have given her a prescription for ativan to be taken pre procedure. TECHNICAL SPECIALIST online checked. [email or web address] Not available 04/09/2019 08:57:51 [...] 200 mg capsule 2018 019 INTERFACE [id number], [address] [place], [address], 08:44:55 Patient TargetsNo targets recorded. Patient Instructions Encounter Date Encounter Id Patient Instructions Last Modified By Organization Details Last Modified Time 12/27/2018 [id number] She was advised against bed rest lasting longer than four days and to continue activities as tolerated. [email or web address] Not available 01/05/2019 09:54:14 01/08/2019 [id number] She was advised against bed rest lasting longer than four days and to continue activities as tolerated. [email or web address] Not available 01/09/2019 11:46:15 04/03/2019 [id number] She was advised against bed rest lasting longer than four days and to continue activities as tolerated. [email or web address] Not available 04/09/2019 08:53:05 04/23/2019 [id number] She was advised against bed rest lasting longer than four days and to continue activities as tolerated. [email or web address] Not available 04/23/2019 09:44:34 05/30/2019 [id number] She was advised against bed rest lasting longer than four days and to continue activities as tolerated. [email or web address] Not available 05/31/2019 08:42:46 Reason for Referral None Reported. Problems Name Problem SNOMED Code Status Onset Date Resolution Date Notes Provider Name and Address Organization Details Recorded Time Lumbosacral radiculopathy 7994353 Shabbir peña MD [address] [facility] , [address], [place], [address], [place] [facility] 13:39:54 Degeneration of lumbar intervertebral disc 40341940 Shabbir peña MD [address] [facility] [facility] , [address], [place], [address], [place] [facility] 13:40:03 Lumbosacral spondylosis without myelopathy 64486507 Shabbir peña MD [address] [facility] , [address], [place], [address], [place] [facility] 9 13:40:21 Spinal stenosis of lumbar region 65245074 Active Jamaal peña MD [address] [facility] , [address], [place], [address], [place] [facility] 9 13:40:32 Problem Notes None recorded. Procedures Surgical History Date Name Laterality Status Provider Name and Address Organization Details Recorded Time 04/23/20 19 Fluoroscopic Guided Lumbar Facet Steroid Injections of levels completed Jamaal Mcgrath MD [address] [facility] , [address], [place], [address], [place] [facility] 04/23/2019 09:43:47 01/09/20 19 Piriformis injection under fluroscopic guidance. completed Jamaal Mcgrath MD [address] [facility] , [address], [place], [address], [place] [facility] 01/09/2019 11:46:55 12/05/19 19 Piriformis injection under fluroscopic guidance. completed Jamaal Mcgrath MD [address] [facility] , [address], [place], [address], [place] [facility] 12/04/2018 13:49:28 [...] Name and Address Organization Details Recorded Time 47601 Product containin g penicilli n (product) medicatio n rash Not available Not available 10/16/2018 06023 8001 SNOMED Stephanie pierre [place] [facility] 9 15:19:41 69728 shellfish derived food,medi cation anaphylax is Not available Not available 10/16/2018 Stephanie pierre [place] [facility] 9 15:19:51 46327 honey bee venom medicatio n anaphylax is Not available Not available 10/16/2018 20810 7 RxNorm [facility] 9 15:20:36 62926 latex environme nt,medica tion Not available Not available Not available 04/03/2019 12404 91 RxNorm [facility] 9 [...] completed Not Available Not Available Not Available [place] Thyroid 60 mg tablet active Not Available [...] No t Available Jublia 10 % topical solution, applicator APPLY ONCE DAILY TO NAILS 10/16 completed Not Available Not Available Not Available Vitals Date Recorded Body height Heart rate Oxygen saturation Systolic And Diastolic Provider Name and Address Organization Details Last Updated DateTime 12/27/2018 149.86 cm 71 /min 98 % 177/72 mm[Hg] Stephanie Garrido [place] [facility] 12/27/2018 14:43:35 Date Recorded Body height Body mass index (BMI) Body weight Heart rate Oxygen saturation Pain severity - 0-10 verbal numeric rating [Score] - Reported Systolic And Diastolic Provider Name and Address Organization Details Last Updated DateTime 9 149.86 cm 28.1 kg/m2 78712.3 4 g 78 /min 98 % 6 128/71 mm[Hg] Jamaal peña MD [address] , [address], [place], [address], [facility] 9 11:33:56 Date Recorded Body height Heart rate Oxygen saturation Systolic And Diastolic Provider Name and Address Organization Details Last Updated DateTime 04/03/2019 149.86 cm 69 /min 97 % 159/80 mm[Hg] [facility] 04/03/2019 15:11:18 Date Recorded Body height Oxygen saturation Heart rate Systolic And Diastolic Provider Name and Address Organization Details Last Updated DateTime 04/23/2019 149.86 cm 99 % 77 /min 148/78 mm[Hg] Stephanie Garrido [place] [facility] 04/23/2019 08:48:12 Date Recorded Body height Heart rate Oxygen saturation Systolic And Diastolic Provider Name and Address Organization Details Last Updated DateTime 05/30/2019 149.86 cm 78 /min 98 % 156/67 mm[Hg] Stephanie Garrido [place] [facility] 05/30/2019 15:39:34 Social History Question Answer Notes LastModified by Chumby Details LastModified Time Tobacco Smoking Status Former Smoker Quit x 14 years Not Available [employer] 07/10/2020 03:16:10 Which Illicit Or Recreational Drugs Have You Used? No [id number] Information not available 07/10/2020 Education 4 Year College BS X 2 Information not available 10/16/2018 Live Alone Or With Others? With Others Partner Information not available 10/16/2018 Marital Status Single Informatio n not available 10/16/2018 What Was The Date Of Your Most Recent Tobacco Screening? 04/03/2019 [id number] Information not available 07/10/2020 How Many Years Have You Smoked Tobacco? 30 [id number] Information not available 07/10/2020 Sex: Unknown Functional Status Question Answer Note LastModified by Chumby Details LastModified Time What is your level of alcohol consumption? 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 Family History Relationship Description Onset Age of this Age Resolved Age Notes LastModified by Organization Details LastModified Time Father Heart disease Not available 2018 15:29:37 Mother Heart disease Not available 2018 15:29:37 Medical History Condition Response Coronary Artery Disease Y Migrane Y High Cholesterol Y GERD/Reflux Y Fibromyalgia Y Hypertension Y Gynecological HistoryNo gynecological history recorded. Obstetrics History GPAL:G 0 P 0 0 0 0 Past Encounters Encounter ID Performer Location Encounter Start Date Encounter Closed Date Diagnosis/Indication Diagnosis SNOMED-CT Code Diagnosis ICD10 Code Diagnosis IMO Codes Diagnosis Note [id number] Jamaal Mcgrath MD PAIN OFF[facility] [address] [facility] [place] [address] 10/16/2018 14:53:03 10/22/2018 14:09:09 Spinal stenosis of lumbar region 43680044 M48.061 Lumbosacra l spondylosis without myelopathy 07283561 M47.817 Degenerati on of lumbar intervertebral disc 77905211 M51.36 Lumbosacra l radiculopathy 7086387 M54.17 [id number] Jamaal Mcgrath MD PAIN OFFICE [address] [facility] [place] [address] 11/15/2018 15:24:16 11/19/2018 09:02:19 Spinal stenosis of lumbar region 89772422 M48.061 Lumbosacra l spondylosis without myelopathy 10301304 M47.817 Degenerati on of lumbar intervertebral disc 09157760 M51.36 Lumbosacra l radiculopathy 1870551 M54.17 [id number] Jamaal Mcgrath MD PAIN OFFICE [address] [place] [address] 12/04/2018 10:02:38 12/04/2018 13:53:49 Spinal stenosis of lumbar region 97600007 M48.061 Lumbosacra l spondylosis without myelopathy 16066365 M47.817 Degenerati on of lumbar intervertebral disc 34805410 M51.36 Lumbosacra l radiculopathy 7184671 M54.17 [id number] Jamaal Mcgrath MD PAIN OFFICE [address] [facility] [place] [address] 12/27/2018 14:02:27 01/05/2019 09:56:06 Spinal stenosis of lumbar region 85822693 M48.061 Lumbosacra l spondylosis without myelopathy 09273107 M47.817 Degenerati on of lumbar intervertebral disc 49018088 M51.36 Lumbosacra l radiculopathy 7218004 M54.17 [id number] Jamaal Mcgrath MD [facility] [address] [facility] [place] [address] 01/08/2019 11:24:32 01/09/2019 12:03:29 Spinal stenosis of lumbar region 91600868 M48.061 Lumbosacra l spondylosis without myelopathy 54611973 M47.817 Degenerati on of lumbar intervertebral disc 30910220 M51.36 Lumbosacra l radiculopathy 0011204 M54.17 [id number] Jamaal Mcgrath MD [facility] [address] [facility] [place] [address] 04/03/2019 14:55:56 04/09/2019 08:59:13 Lumbosacral spondylosis without myelopathy 31727253 M47.817 Degenerati on of lumbar intervertebral disc 00637509 M51.36 Lumbosacra l radiculopathy 4578225 M54.17 Spinal clary nosis of lumbar region 06254124 M48.061 [id number] Jamaal Mcgrath MD PAIN OFFICE [address] [facility] [place] [address] 04/23/2019 08:30:00 04/24/2019 13:45:34 Lumbosacral spondylosis without myelopathy 92946098 M47.817 Degenerati on of lumbar intervertebral disc 88614277 M51.36 Lumbosacra l radiculopathy 7089599 M54.17 Spinal clary nosis of lumbar region 47095545 M48.061 [id number] Jamaal Mcgrath MD [facility] [address] [place] [address] 05/30/2019 15:31:30 05/31/2019 08:45:39 Lumbosacral spondylosis without myelopathy 41865449 M47.817 Degenerati on of lumbar intervertebral disc 13873942 M51.36 Lumbosacra l radiculopathy 6680464 M54.17 Spinal clary nosis of lumbar region 71858091 M48.061 Health Concerns Section Related Observation LastModified by Organization Detai ls LastModified Time None Recorded Concern Status LastModified by Organization Details LastModified Time None Recorded Advance Directives Directive None Recorded Payers Insurance Date Sequence Insurance Name Policy Number Policy Anthony Covered Member ID Anthony Member ID Guarantor Name 05/27/2019 1 [employer] (O) [id number] Jodi Palafox [id number] Jodi Palafox Notes Date Note Type [...] or bowel incontinence. Jamaal Mcgrath MD [address] [facility] , [place] [address], [place], [address], [facility] 01/06/2019 17:03:41 01/08/2019 text/html She is here for right piriformis muscle steroid injection under fluoroscopic guidance Jamaal Mcgrath MD [address] [facility] , [address] [facility], [place], [address], [place] [facility] 01/10/2019 10:38:19 04/03/2019 text/html She is here for a follow up. She reports good pain benefit after right piriformis injection under fluoroscopic guidance. She is complaining of right sided low back pain. She has no radiating pain in her lower extremities. She has no history of bladder or bowel incontinence. Jamaal Mcgrath MD [address] [facility] , [address], [place], [address], [facility] 04/11/2019 09:45:26 04/23/2019 text/html She is here for a right lumbar facet joint injection under fluoroscopic guidance Jamaal Mcgrath MD [address] [facility] , [address] [facility], [place], [address], [place] [facility] 04/24/2019 14:20:26 05/30/2019 text/html [...] seeking treatment with him. Jamaal Mcgrath MD [address] [place] [address] , [address], [place], [address], [facility] 05/31/2019 08:57:38 OBGyn Episode No OBEpisode recorded.
--- OUTSIDE RECORDS SUMMARY | 2025-09-07 05:38 | XMS_ITS | Encounter Summary ---
Author Organization [facility] Address Formerly [facility] [employer] [address] Phone Care Team Providers Care Poultry Feed Supervisor Name Role Phone Chio Hill Olga [facility] Primary Care Provider [phone] Veronica Everett RN Unavailable Candice Martinez [facility] Primary Care Provider [phone] Candice Martinez [facility] Primary Care Provider Candice Martinez [facility] Primary Care Provider Encounter Details Date Type Department Care Team (Late st Contact Info) Description 05/29/2022 Procedure Pass [facility], Ct Scan - [address] [id number] Social History Tobacco Use Types Packs/Day Years [...] on file documented as of this encounter Functional Status * Calculated C-SSRS Risk Score (Lifetime/Recent) Answer Date of Assessment Author No Risk Indicated 05/29/2022 5:11 PM EDT Giuliana Kelley, RN * [place] Suicide Severity Rating Scale (Screener/Recent Self-Report) Question Answer Date of Assessment Author 1. Wish to be (Past 1 Month) No 022 5:11 PM EDT Giuliana Pozo, RN 2. Non-Specific Active Suici carmen Thoughts (Past 1 Month) No 05/29/2022 5:11 PM EDT Giuliana Pozo, RN 6. Suicidal Behavior (Lifetime) No 5:11 PM EDT Giuliana Pozo, RN documented as of this encounter Plan of Treatment Not on file documented as of this encounter Visit Diagnoses Not on filedocumented in this encounter Additional Health Concerns Assessment Noted Time PHQ-2 Depression Total Score: 0 10/13/19 22 4:05 PM EST documented as of this encounter Care Teams Poultry Feed Supervisor Relationship Specialty Start Date End Date Chio Hill CNP [address] [facility], [address]nd [place] [address] [email or web address] PCP - General Family Medicine 08/27/19 07/31/23 Candice Martinez CNP [address] [place] [address] 7 [place] [address] PCP - General Nurse Practitioner 08/01/23 09/05/23 Candice Martinez CNP [address] [place] [address] 7 [place] [address] [email or web address] PCP - General Nurse Practitioner 09/06/23 09/06/23 Candice Martinez CNP [address] [place] [address] 7 [place] [address] PCP - General Nurse Practitioner 09/07/23 Veronica Everett, RN [address] [place] [address] [email or web address] PHCM Framing ConsultantScreen Maker 02/23/23 03/21/23 documented as of this encounter Additional Source Comments The information contained in this document represents components of the legal health record. It is not the complete legal health record.[facility]
--- OUTSIDE RECORDS SUMMARY | 2025-09-07 05:38 | XMS_ITS | Encounter Summary ---
Author Organization [facility] Address [address] [place] [id number] Phone Care Team Providers Care Biomedical Technician Name Role Phone Chio Hill Olga [facility] Primary Care Provider [phone] Veronica Everett RN Unavailable Candice Martinez [facility] Primary Care Provider Candice Martinez [facility] Primary Care Provider Candice Martinez [facility] Primary Care Provider Encounter Details Date Type Department Care Team (Late st Contact Info) Description 05/30/2022 Procedure Pass OR Admitting Dept - [facility] Department [address] [place] [id number] Social History Tobacco Use Types Packs/Day Years [...] documented as of this encounter Care Teams Biomedical Technician Relationship Specialty Start Date End Date [email or web address] cox [address] [facility], 2nd [place] [address] PCP - General Family Medicine 08/27/19 07/31/23 Candice Martinez CNP [address] [place] [id number] PCP - General Nurse Practitioner 08/01/23 09/05/23 Candice Martinez CNP [address] [place] [id number] PCP - General Nurse Practitioner 09/06/23 09/06/23 Candice Martinez CNP [address] [place] [address] PCP - General Nurse Practitioner 09/07/23 Veronica Everett, RN [address] [place] [phone] PHCM Fast Food Crew LeadFreelance Interpreter/Translator 02/23/23 03/21/23 documented as of this encounter Additional Source Comments The information contained in this document represents components of the legal health record. It is not the complete legal health record.[facility]
[2025-09-07 06:08] VITALS: O2SAT 96
[2025-09-07 06:23] LABS: Hematocrit 38.6 % (37.0-47.0); Hemoglobin 12.8 g/dl (12.0-16.0); Imm Gran Abs Auto 0.05 X10*3/uL (0.00-0.03); Imm Gran Pct Auto 0.4 % (0.0-0.4); Lymphocytes Absolute Auto 2.9 X10*3/uL (1.2-4.9); MANUAL DIFF FLAG NO; Mean Corpuscular HGB Conc 33.2 g/dl (31.0-35.0); Mean Corpuscular Hemoglobin 28.3 pg (27.0-33.0); Mean Corpuscular Volume 85.2 fL (80.0-98.0); NRBC Abs Auto 0.000 X10*3/uL (0.0-0.012); NRBC Pct Auto 0.0 /100WBC (0.0-0.2); Platelet Count 337 X10*3/uL (160-400); Red Blood Count 4.53 X10*6/uL (4.20-5.50); White Blood Count 14.0 X10*3/uL (4.8-10.8)
[2025-09-07 06:33] VITALS: BP 114/48; PULSE 54; RESP 18; TEMP 36.6; O2SAT 98
[2025-09-07 06:44] LABS: Alanine Aminotransferase 16 U/L (0-31); Albumin Level 4.3 g/dL (3.5-5.0); Alkaline Phosphatase 95 U/L (39-117); Anion Gap 12 (12-20); Aspartate Amino Transferase 21 U/L (5-31); Blood Urea Nitrogen 16 mg/dL (9-16); Calcium 9.1 mg/dL (8.4-10.2); Carbon Dioxide 25 mmol/L (22-29); Chloride 106 mmol/L (96-108); Creatinine Clr Calc Pharmacy 40.4; Estimated Glomerular Filt Rate 47; Lipase 18 U/L (8-78); Magnesium 2.3 mg/dL (1.6-2.6); Potassium 4.1 mmol/L (3.3-5.1); Sodium 139 mmol/L (135-145); Total Protein 7.0 g/dL (6.5-8.0)
--- NOTE | 2025-09-07 06:48 | ED.SYNCOPE ---
HPI - Syncope General Chief Complaint: Syncope Stated Complaint: SYNCOPE, VOMITING, DIARRHEA Time Seen by Provider: 09/07/25 06:23 Source: patient, family and EMS Mode of arrival: EMS Limitations: no limitations History of Present Illness ED Provider: DR. Enriquez HPI narrative: a 65-year-old female brought in by ambulance for evaluation after having a syncopal episode this morning while she was on the toilet seat, patient did not feel well all day yesterday went to bed woke up this morning with nausea, vomiting, and nonbloody watery diarrhea followed by a period of syncopal episode with complete loss of consciousness and patient fell on the ground hitting her head, patient was helped by her partner and set her back on the toilet then patient passed out again witnessed by her friend for few sec, as per friend patient looks pale, no recent travel, no recent use of antibiotic, no recent exposure to a sick contacts, past medical history 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 Complains of left knee pain. Related Data Home Medications ?Medication ?Instructions ?Recorded ?Confirmed aspirin 81 mg tablet,delayed 81 mg PO DAILY 09/03/21 02/12/25 release atorvastatin 20 mg tablet 20 mg PO DAILY 09/03/21 02/12/25 bupropion HCl 150 mg 24 hr tablet, 150 mg PO QAM 09/03/21 02/12/25 extended release diltiazem HCl 180 mg 180 mg PO DAILY 09/03/21 02/12/25 capsule,extended release 24 hr isosorbide mononitrate 30 mg 30 mg PO DAILY 09/03/21 02/12/25 tablet,extended release 24 hr lisinopril 10 mg tablet 10 mg PO DAILY 09/03/21 02/12/25 losartan 50 mg tablet 50 mg PO DAILY 09/03/21 02/12/25 omeprazole 40 mg capsule,delayed 40 mg PO DAILY 09/03/21 02/12/25 release valacyclovir 500 mg tablet 500 mg PO BID 09/03/21 02/12/25 buspirone 10 mg tablet 10 mg PO BID 02/12/25 02/12/25 cyclobenzaprine 5 mg tablet 5 mg PO TID PRN 02/12/25 02/12/25 hydroxyzine HCl 25 mg tablet 25 mg PO TID 02/12/25 02/12/25 omeprazole 20 mg capsule,delayed 20 mg PO BID 02/12/25 02/12/25 release rosuvastatin 40 mg tablet 40 mg PO DAILY 02/12/25 02/12/25 sertraline 100 mg tablet mg PO 02/12/25 02/12/25 trazodone 100 mg tablet 100 mg PO BEDTIME 02/12/25 02/12/25 Previous Rx's ?Medication ?Instructions ?Recorded gabapentin 100 mg capsule 100 mg PO TID #90 caps 04/11/25 Allergies Allergy/AdvReac Type Severity Reaction Status Date / Time Penicillins Allergy Intermediate Rash Verified 09/07/25 05:25 Review of Systems Review of Systems: All other systems are reviewed and are negative Constitutional: Reports as per HPI and Reports no additional constitutional complaints Eyes: Reports as per HPI and Reports no additional eye complaints Reports system reviewed and no additional complaints, except as documented Cardiovascular: Reports as per HPI and Reports no additional cardiovascular complaints Respiratory: Reports as per HPI and Reports no additional respiratory complaints Gastrointestinal: Reports as per HPI and Reports no additional gastrointestinal complaints Genitourinary: Reports no additional female genitourinary complaints Musculoskeletal: Reports no additional musculoskeletal complaints Skin/Breast: Reports system reviewed and no additional complaints, except as docu Psychiatric: Reports no additional psychiatric complaints Endocrine: Reports no additional endocrine complaints Hematologic/Lymphatic: Reports no additional hematologic/lymphatic complaints Allergic/Immunologic: Reports no additional allergic/immunologic complaints Reports system reviewed and no additional complaints, except as documented and Reports Abnormal speech present [facility] Social History Social History Advance Directives: No Advance Directives Information Provided: No Do you have a plan to hurt others: No Plan Patient : No Physical Exam Vital Signs: Vital Signs: Last Vital Signs Temp 97.7 F 09/07/25 09:45 Pulse 64 09/07/25 09:45 Resp 15 09/07/25 09:45 BP 100/41 L 09/07/25 09:45 Pulse Ox 99 09/07/25 09:45 O2 Del Method Room Air 09/07/25 09:45 BMI result Body Mass Index 29.8 Vital signs have been reviewed and appear to be correct. Blood pressure elevated. Heart rate normal. Respiratory rate normal. Temperature normal. Oxygen saturation normal. Appearance: Alert. Oriented X3. No acute distress. Head: Normal external exam. Normocephalic. Atraumatic. No [place] signs noted. No raccoon eyes noted Eyes: PERRLA. EOMI. Conjunctiva and sclera normal. Eyelids normal. ENT: TM's Normal. Pharynx normal. Uvula midline. Moist mucous membranes. No trismus noted. No drooling noted. No muffled voice noted. Neck: Normal inspection. Neck supple. FROM. No adenopathy. Thyroid Normal. No meningeal signs. No neck mass noted. CVS: Normal heart rate and rhythm. Heart sound normal. No murmurs noted. Pulses normal throughout. Respiratory: No respiratory distress. Painless inspiration. Breath sounds normal. No wheezes/rales/rhonchi noted. Chest nontender. No accessory muscle usage noted or decreased air movement noted. Abdomen: Soft and nontender. Bowel sounds normal in all 4 quadrants. No distention noted. No organomegaly noted. No visible injury noted. Back: No CVA tenderness. Full range of motion noted. Skin: Skin warm and dry. Normal skin color. Normal skin turgor. No rashes/lesions/lacerations noted. Extremities: No lower extremity edema. Extremities exhibit normal range of motion. Extremities nontender. Neuro: Oriented X 3. Cranial nerve exam: II-XII are grossly intact No motor deficit. No sensory deficit. Reflexes normal. Course Reevaluation(s) Reevaluation #1: Patient feels much better, able to tolerate p.o. intake, no nausea, no vomiting, no diarrhea while she is in the ED. Stable vital signs, labs are unremarkable, CT abdomen and pelvis is unremarkable for acute pathology. GCS of 15, normal neuro exam, head CT is unremarkable. Patient has no nausea or vomiting able to tolerate p.o. intake was encouraged to p.o. hydration. Negative cardiac workup. Time: 09:50 Medications Administered Discontinued Medications Generic Name Dose Route Start Last Admin Trade Name Freq PRN Reason Stop Dose Admin Famotidine 20 mg 09/07/25 06:36 09/07/25 06:49 Famotidine/Pf 20 Mg/2 Ml Vial IVPUSH 09/07/25 06:37 20 mg ONCE ONE Administration Lactated Ringer's 1,000 mls @ 999 mls/hr 09/07/25 08:45 09/07/25 09:04 Lr IV 09/07/25 09:45 999 mls/hr .Q1H1M LINDA Administration Iohexol 100 ml 09/07/25 08:07 09/07/25 08:07 Iohexol 350 Mg/Ml 100 Ml Infus..Btl IV 09/07/25 08:08 85 ml ONCE ONE Administration Loperamide HCl 2 mg 09/07/25 06:36 09/07/25 06:49 Loperamide Hcl 2 Mg Capsule PO 09/07/25 06:37 2 mg ONCE ONE Administration Ondansetron HCl 4 mg 09/07/25 06:36 09/07/25 06:49 Ondansetron Hcl 4 Mg/2 Ml Vial IVPUSH 09/07/25 06:37 4 mg ONCE ONE Administration Medical Decision Making Differential Diagnosis Differential Diagnoses: The differential diagnosis associated with the presentation includes ( Gastroenteritis, dehydration, electrolyte derangement, severe anemia, colitis, diverticulitis, intracranial bleed, cervical spine injury, left knee fracture.) Admission/Observation Consideration of admission/observation: Escalation of care including admission/observation considered Lab Data MDM Lab Attestation statement: I reviewed the patient's lab results. 09/07/25 06:10 09/07/25 06:10 Labs: Lab Results 09/07/25 09/07/25 09/07/25 Range/Units 06:01 06:10 06:14 WBC 14.0 H (4.8-10.8) X10*3/uL RBC 4.53 (4.20-5.50) X10*6/uL Hgb 12.8 (12.0-16.0) g/dl Hct 38.6 (37.0-47.0) % MCV 85.2 (80.0-98.0) fL MCH 28.3 (27.0-33.0) pg MCHC 33.2 (31.0-35.0) g/dl RDW 12.7 (11.0-16.0) % Plt Count 337 (160-400) X10*3/uL MPV 9.6 (9.4-12.3) fL Immature Gran % (Auto) 0.4 (0.0-0.4) % Neut % (Auto) 67.8 (45-73) % Lymph % (Auto) 20.9 (20-40) % [place] % (Auto) 8.4 (2-11) % Eos % (Auto) 1.9 (0-4) % Baso % (Auto) 0.6 (0-2) % Lymph # (Auto) 2.9 (1.2-4.9) X10*3/uL [place] # (Auto) 1.2 (0.1-1.2) X10*3/uL Eos # (Auto) 0.3 (0.0-0.4) X10*3/uL Baso # (Auto) 0.1 (0.0-0.2) X10*3/uL Abs Immat Gran (auto) 0.05 H (0.00-0.03) X10*3/uL Absolute Neuts (auto) 9.5 H (2.0-8.3) x10*3/uL Absolute Nucleated RBC 0.000 (0.0-0.012) X10*3/uL Nucleated RBC % (auto) 0.0 (0.0-0.2) /100WBC Sodium 139 (135-145) mmol/L Potassium 4.1 (3.3-5.1) mmol/L Chloride 106 (96-108) mmol/L Carbon Dioxide 25 (22-29) mmol/L Anion Gap 12 (12-20) BUN 16 (9-16) mg/dL Creatinine 1.17 (0.5-1.4) mg/dL Estim Creat Clear Calc 40.4 Estimated GFR 47 Random Glucose 89 (60-115) mg/dL Lactic Acid 1.5 (0.5-2.0) mmol/L Calcium 9.1 (8.4-10.2) mg/dL Magnesium 2.3 (1.6-2.6) mg/dL Total Bilirubin 0.3 (0.0-1.0) mg/dL AST 21 (5-31) U/L ALT 16 (0-31) U/L Alkaline Phosphatase 95 (39-117) U/L Troponin I High Sens < 2.7 (<3.5-17.0) ng/L Total Protein 7.0 (6.5-8.0) g/dL Albumin 4.3 (3.5-5.0) g/dL Lipase 18 (8-78) U/L C. difficile Tox B Gene (Negative) Influenza Type A (PCR) NEGATIVE (Negative) Influenza Type B (PCR) NEGATIVE (Negative) RSV RNA Qual (PCR) NEGATIVE (Negative) SARS-CoV-2 RNA (RT-PCR) NEGATIVE (Negative) 09/07/25 09/07/25 Range/Units 06:15 09:00 WBC (4.8-10.8) X10*3/uL RBC (4.20-5.50) X10*6/uL Hgb (12.0-16.0) g/dl Hct (37.0-47.0) % MCV (80.0-98.0) fL MCH (27.0-33.0) pg MCHC (31.0-35.0) g/dl RDW (11.0-16.0) % Plt Count (160-400) X10*3/uL MPV (9.4-12.3) fL Immature Gran % (Auto) (0.0-0.4) % Neut % (Auto) (45-73) % Lymph % (Auto) (20-40) % [place] % (Auto) (2-11) % Eos % (Auto) (0-4) % Baso % (Auto) (0-2) % Lymph # (Auto) (1.2-4.9) X10*3/uL [place] # (Auto) (0.1-1.2) X10*3/uL Eos # (Auto) (0.0-0.4) X10*3/uL Baso # (Auto) (0.0-0.2) X10*3/uL Abs Immat Gran (auto) (0.00-0.03) X10*3/uL Absolute Neuts (auto) (2.0-8.3) x10*3/uL Absolute Nucleated RBC (0.0-0.012) X10*3/uL Nucleated RBC % (auto) (0.0-0.2) /100WBC Sodium (135-145) mmol/L Potassium (3.3-5.1) mmol/L Chloride (96-108) mmol/L Carbon Dioxide (22-29) mmol/L Anion Gap (12-20) BUN (9-16) mg/dL Creatinine (0.5-1.4) mg/dL Estim Creat Clear Calc Estimated GFR Random Glucose (60-115) mg/dL Lactic Acid (0.5-2.0) mmol/L Calcium (8.4-10.2) mg/dL Magnesium (1.6-2.6) mg/dL Total Bilirubin (0.0-1.0) mg/dL AST (5-31) U/L ALT (0-31) U/L Alkaline Phosphatase (39-117) U/L Troponin I High Sens < 2.7 (<3.5-17.0) ng/L Total Protein (6.5-8.0) g/dL Albumin (3.5-5.0) g/dL Lipase (8-78) U/L C. difficile Tox B Gene NEGATIVE (Negative) Influenza Type A (PCR) (Negative) Influenza Type B (PCR) (Negative) RSV RNA Qual (PCR) (Negative) SARS-CoV-2 RNA (RT-PCR) (Negative) Independent Interpretation I performed an independent interpretation of an: Plain X-Ray ( Left knee x-ray: No acute findings.) and CT Scan ( Head/ abdomen/ pelvis CT: No acute underlying pathology.) Radiology Impression Discussion of test interpretation with radiology: I have reviewed the radiologist's reading. Discharge Plan Discharge Clinical Impression: Gastroenteritis, Syncope and collapse, Syncope due to orthostatic hypotension Patient Disposition: Home, Self-Care Instructions: Gastroenteritis (ED) Additional Instructions: drink plenty of fluids. Prescriptions: No Action gabapentin 100 mg capsule 100 mg PO TID Qty: 90 1RF omeprazole 40 mg capsule,delayed release(DR/EC) 40 mg PO DAILY isosorbide mononitrate 30 mg tablet extended release 24 hr 30 mg PO DAILY atorvastatin 20 mg tablet 20 mg PO DAILY losartan 50 mg tablet 50 mg PO DAILY bupropion HCl 150 mg tablet extended release 24 hr 150 mg PO QAM diltiazem HCl 180 mg capsule,extended release 24hr 180 mg PO DAILY lisinopril 10 mg tablet 10 mg PO DAILY valacyclovir 500 mg tablet 500 mg PO BID aspirin 81 mg tablet,delayed release (DR/EC) 81 mg PO DAILY sertraline 100 mg tablet PO buspirone 10 mg tablet 10 mg PO BID trazodone 100 mg tablet 100 mg PO BEDTIME cyclobenzaprine 5 mg tablet 5 mg PO TID PRN omeprazole 20 mg capsule,delayed release(DR/EC) 20 mg PO BID rosuvastatin 40 mg tablet 40 mg PO DAILY hydroxyzine HCl 25 mg tablet 25 mg PO TID Print Language: Greek
[2025-09-07 06:52] LABS: Troponin-I High Sensitivity < 2.7 ng/L (<3.5-17.0)
[2025-09-07 07:01] LABS: Resp Syncy Virus RNA Qual PCR NEGATIVE (Negative); SARS COV2 PCR INHOUSE NEGATIVE (Negative)
[2025-09-07 07:23] LABS: CDiff Gene PCR NEGATIVE (Negative)
[2025-09-07] MEDS: iohexoL 350 MG/ML 100 ML INFUS..BTL IV (08:07)
[2025-09-07] MEDS: Lactated Ringers 1,000 ML 999 ML IV (09:04)
[2025-09-07 09:30] LABS: Troponin-I High Sensitivity < 2.7 ng/L (<3.5-17.0)
[2025-09-07 09:45] VITALS: BP 100/41; PULSE 64; RESP 15; TEMP 36.5; O2SAT 99
[2025-09-07 09:49] LABS: E. coli EAEC Not Detected (Not Detect.); E. coli EPEC Not Detected (Not Detect.); E. coli ETEC Not Detected (Not Detect.); E. coli STEC Not Detected (Not Detect.); Shigella sp./EIEC Not Detected (Not Detect.)
[2025-09-07 10:39] VITALS: BP 100/41; PULSE 64; RESP 15; TEMP 36.5; O2SAT 99
== END 2025-09-07 10:41 | disposition home or self-care (01) ==
PROVIDERS: Emergency Provider Emergency Medicine; PCP Nurse Practitioner Family
DX: K52.9 Noninfective gastroenteritis and colitis, unspecified (principal); I95.1 Orthostatic hypotension; S09.90XA Unspecified injury of head, initial encounter; W18.11XA Fall from or off toilet without subsequent striking against object, initial encounter; Y93.9 Activity, unspecified; Y92.002 Bathroom of unspecified non-institutional (private) residence as the place of occurrence of the external cause; R11.10 Vomiting, unspecified; Z03.818 Encounter for observation for suspected exposure to other biological agents ruled out; R00.1 Bradycardia, unspecified; M25.562 Pain in left knee; R10.9 Unspecified abdominal pain; Z87.19 Personal history of other diseases of the digestive system
CPT/HCPCS: 36415; 70450; 73564; 74177; 80053; 83605; 83690; 83735; 84484; 85025; 87493; 87507; 87637; 93005; 96374; 96375; 99285; J1308; J2405; J7120; Q9967

== ENCOUNTER → 2025-09-07 05:17 | Outpatient (BNV) | payer BC, SELFPAY | PROVIDERS: Emergency Provider Emergency Medicine; PCP Nurse Practitioner Family; Visit Provider Internal Medicine Cardiovascular Disease | DX: R00.1 Bradycardia, unspecified (principal) | CPT/HCPCS: 93010 ==

== ENCOUNTER → 2025-09-07 06:17 | Outpatient (BNV) | payer BC, SELFPAY | PROVIDERS: Emergency Provider Emergency Medicine; PCP Nurse Practitioner Family; Visit Provider Radiology Diagnostic Radiology | DX: S09.90XA Unspecified injury of head, initial encounter (principal); R55 Syncope and collapse; Z04.3 Encounter for examination and observation following other accident; K63.89 Other specified diseases of intestine; M25.562 Pain in left knee | CPT/HCPCS: 70450; 73564; 74177 ==